=== PATIENT | female | born 1930 | race Caucasian/White ===

== ENCOUNTER 2017-06-12 18:08 | Inpatient (IN) | payer MEDICARE ==
[~2017-06-12] VITALS: Ht 152.4 cm; Wt 67.0 kg
[~2017-06-12 18:08] MED LIST: ALLO100 PO; ASPI325T PO; CALC600T34 PO; CLOP75 PO; DYAZ37.52 PO; LORT7.5T3 PO; METO50TA PO; MEVA40TA6 PO; POTA-243 PO; PRIN5TAB PO; SPIR25 PO; VITA500T10 PO
[2017-06-12 18:15] VITALS: BP 132/62; PULSE 86; RESP 18; TEMP 98; O2SAT 93
[2017-06-12] MEDS ORDERED: GABA300C5 PO (18:21)
[2017-06-12] MEDS ORDERED: ACYC800T PO (18:21)
[2017-06-12] MEDS ORDERED: ASPI81CH CHEW (18:21)
[2017-06-12 18:26] VITALS: O2SAT 94
[2017-06-12] MEDS ORDERED: SODIUM CHLORIDE 0.9% FLUSH 10 ML FLUSH IVF PRN ×2 (19:15→20:45)
[2017-06-12] MEDS ORDERED: RESP: ALBUTEROL 2.5 MG/IPRATROPIUM 0.5 MG NEB (SCH) NEB ONE (19:15)
[2017-06-12] MEDS ORDERED: ONDANSETRON HCL 4 MG/2 ML VIAL IV PUSH ONE (19:15)
[2017-06-12 19:25] VITALS: O2SAT 97
[2017-06-12 19:45] LABS: AUTOMATED NEUTROPHIL # 5.1 TH/MM3 (1.8-7.7); BASOPHIL % 0.3 % (0.0-2.0); EOSINOPHIL # 0.2 TH/MM3 (0-0.4); EOSINOPHIL % 3.2 % (0.0-4.0); HEMATOCRIT 29.1 % (35.0-46.0); LYMPH % 11.2 % (9.0-44.0); LYMPHOCYTE # 0.8 TH/MM3 (1.0-4.8); MEAN CELL VOLUME 88.9 FL (80.0-100.0); MEAN CORPUSCULAR HEMOGLOBIN 29.2 PG (27.0-34.0); MEAN CORPUSCULAR HGB CONC 32.8 % (32.0-36.0); MONO % 17.2 % (0.0-8.0); NEUT % 68.1 % (16.0-70.0); PLATELET COUNT 139 TH/MM3 (150-450); RED BLOOD COUNT 3.27 MIL/MM3 (4.00-5.30); WHITE BLOOD COUNT 7.4 TH/MM3 (4.0-11.0)
[2017-06-12 19:53] LABS: HEMO FLAGS DIFF FINAL
[2017-06-12 19:57] LABS: CHLORIDE 103 MEQ/L (98-107); POTASSIUM 4.8 MEQ/L (3.5-5.1); SODIUM (NA) 137 MEQ/L (136-145)
--- NOTE | 2017-06-12 20:00 | PD ---
HPI Chief Complaint: Altered Mental Status Time Seen by Provider: 19:12 Travel History International Travel<30 days: No Contact w/Intl Traveler<30days: No Traveled to known affect area: No History of Present Illness HPI 87-year-old female presents to the emergency department by private transportation in the care of her family for evaluation of syncopal episode. According to the family patient has history of hypertension and dyslipidemia. As of 5 days ago she was diagnosed with shingles affecting the right trunk and chest wall. Patient was seen by her primary care provider and started on gabapentin and acyclovir. Family has noted since starting the new medications she has been a little confused and off balance. Patient reportedly had a fall the bathroom yesterday. Patient fall was not witnessed but was heard by family and they immediately responded and found her on the floor awake. Patient was assisted from the floor and seemed to be okay at the time and then later today had another episode of fall but she was caught by her daughter before she landed on the floor or sustaining any injury. Yesterday patient did contuse her left shoulder and it is suspected that she hit her head. Today around 4:30 with family sat her on the back porch to enjoy some fresh air and the daughter checked on her around 5 PM and found to be unresponsive sitting upright in her chair. Daughter states that she had some guttural respirations and then vomited. The daughter tried to keep her from aspirating. There was no trauma or fall associated with the syncopal episode which was seconds in duration. Daughter does not believe she saw any seizure activity. No witnessed incontinence. No prior history of seizure. EMS was contacted and upon their arrival patient refused transportation by EMS. Patient is brought in by private vehicle. Patient's had no recent febrile illness. No shaking chills. No previous cough congestion shortness of breath chest pain abdominal pain nausea vomiting diarrhea dysuria or new joint pain or swelling. Since the episode of vomiting patient has had increasing congested cough. No reported witnessed coffee-ground emesis or hematemesis. Patient rates her pain 0/10 intensity. PFSH Past Medical History Narrative Medical Arthritis hypertension dyslipidemia stage IV kidney disease renal artery stent pulmonary edema partial colectomy colonic polyp polypectomy shingles no tobacco use; nursing notes reviewed Arthritis: Yes Autoimmune Disease: No Blood Disorders: No Heart Rhythm Problems: No Cancer: No Cardiovascular Problems: Yes High Cholesterol: Yes Chest Pain: No Congestive Heart Failure: No Cerebrovascular Accident: No Endocrine: No Gastrointestinal Disorders: Yes (POLYP) Gout: Yes Genitourinary: No Headaches: Yes Hypertension: Yes Immune Disorder: No Medical other: Yes (STAGE 4 KIDNEY DISEASE) Musculoskeletal: Yes Neurologic: No Psychiatric: No Reproductive: No Respiratory: No Myocardial Infarction: No Seizures: No Tetanus Vaccination: Unknown Influenza Vaccination: Yes ?: Not Menopausal: Yes Past Surgical History Abdominal Surgery: Yes (APPY, COLON RESECTION) AICD: No Appendectomy: Yes Gynecologic Surgery: Yes (TAHBSO) Hysterectomy: Yes Joint Replacement: Yes (UMANG. KNEES) Oral Surgery: Yes (T & A) Pacemaker: No Tonsillectomy: Yes Other Surgery: Yes (STENTS) Social History Alcohol Use: No Tobacco Use: No Substance Use: No Allergies-Medications (Allergen,Severity, Reaction): Coded Allergies: penicillin G (Unverified Allergy, Mild, Rash, 06/12/17) Reported Meds & Prescriptions Reported Meds & Active Scripts Active Reported Metoprolol Tartrate 25 Mg Tab 25 Mg PO BID Losartan (Losartan Potassium) 100 Mg Tab 100 Mg PO DAILY Amlodipine (Amlodipine Besylate) 2.5 Mg Tab 2.5 Mg PO DAILY Hydralazine (Hydralazine HCl) 100 Mg Tab 100 Mg PO BID Take with meals Aspirin 81 Mg Chew 81 Mg CHEW DAILY Gabapentin 300 Mg Cap 300 Mg PO HS Acyclovir 800 Mg Tab 800 Mg PO BID Simvastatin 5 Mg Tab 5 Mg PO DAILY Narrative Medication Hydralazine 50 mg 3 times a day amlodipine 2.5 mg daily restart and 100 mg daily metoprolol 25 mg twice a day aspirin 81 mg daily simvastatin daily acyclovir 40 mg twice a day gabapentin 300 mg at bedtime Review of Systems Except as stated in HPI: all other systems reviewed are Neg General / Constitutional: No: Fever, Chills Eyes: No: Visual changes HENT: Positive: Lightheadedness, Congestion, No: Headaches, Vertigo Cardiovascular: Positive: Syncope, No: Chest Pain or Discomfort, Diaphoresis Respiratory: Positive: Cough, Shortness of Breath (mild), Wheezing Gastrointestinal: Positive: Nausea, Vomiting, No: Diarrhea, Abdominal Pain Genitourinary: No: Dysuria, Decreased Urinary Output Musculoskeletal: No: Pain Skin: Positive Rash (shingles) Neurologic: Positive: Weakness, Syncope, Change in Mentation (mild confusion per family), No: Dizziness, Focal Abnormalities, Coordination Problem, Headache Psychiatric: No: Anxiety Endocrine: Positive: Cold Intolerance Hematologic/Lymphatic: No: Easy Bruising Physical Exam Narrative GENERAL: Well-developed elderly female with congested cough room air O2 saturation 92-93% placed on supplemental oxygen SKIN: Warm and dry. Shingles rash to right chest wall and upper abdomen; ecchymosis to left shoulder HEAD: Atraumatic. Normocephalic. No scalp soft tissue swelling hematoma abrasion laceration or ecchymosis noted no tenderness no bony abnormality. EYES: Pupils equal and round. Extraocular muscles intact. No scleral icterus. No injection or drainage. ENT: No nasal bleeding or discharge. Mucous membranes pink and moist. Small contusion to left lateral aspect of tongue. NECK: Trachea midline. No JVD. No tenderness to direct palpation along the cervical spine no bony step-off neck nontender. CARDIOVASCULAR: Regular rate and rhythm. Chest wall: No tenderness to palpation no rib tenderness. RESPIRATORY: No accessory muscle use. Clear to auscultation. Breath sounds equal bilaterally. GASTROINTESTINAL: Abdomen soft, non-tender, nondistended. Hepatic and splenic margins not palpable. MUSCULOSKELETAL: Extremities without clubbing, cyanosis, or edema. No obvious deformities. NEUROLOGICAL: Awake and alert. GCS 15. No obvious cranial nerve deficits. Motor grossly within normal limits. Five out of 5 muscle strength in the arms and legs. Normal speech. PSYCHIATRIC: Appropriate mood and affect; insight and judgment normal. Data Data Last Documented VS Vital Signs Date Time Temp Pulse Resp B/P (MAP) Pulse Ox O2 Delivery O2 Flow Rate FiO2 06/12/17 18:26 94 Nasal Cannula 2.00 06/12/17 18:15 98.0 86 18 132/62 (85) Orders Orders Electrocardiogram (06/12/17 19:13) Complete Blood Count With Diff (06/12/17 19:13) Comprehensive Metabolic Panel (06/12/17 19:13) Magnesium (Mg) (06/12/17 19:13) B-Type Natriuretic Peptide (06/12/17 19:13) Ckmb (Isoenzyme) Profile (06/12/17 19:13) Troponin I (06/12/17 19:13) Act Partial Throm Time (Ptt) (06/12/17 19:13) Prothrombin Time / Inr (Pt) (06/12/17 19:13) Urinalysis - C+S If Indicated (06/12/17 19:13) Chest, Single Ap (06/12/17 19:13) Ct Brain W/O Iv Contrast(Rout) (06/12/17 19:13) Ecg Monitoring (06/12/17 19:13) Iv Access Insert/Monitor (06/12/17 19:13) Oximetry (06/12/17 19:13) Sodium Chloride 0.9% Flush (Ns Flush) (06/12/17 19:15) Blood Culture (06/12/17 19:13) Lactic Acid (06/12/17 19:13) Ondansetron Inj (Zofran Inj) (06/12/17 19:15) Albuterol-Ipratropium Neb (Duoneb Neb) (06/12/17 19:15) CKMB (06/12/17 19:30) CKMB% (06/12/17 19:30) Levofloxacin 250 Mg Premix Inj (Levaquin (06/12/17 20:45) Aztreonam Inj (Azactam Inj) (06/12/17 20:45) Metronidazole 500 Mg Inj (Flagyl 500 Mg (06/12/17 20:45) Admit Order (Ed Use Only) (06/12/17 ) ^ Saline Lock (06/12/17 20:45) Resp Oxygen Mayank C Titrat 1-4 L (06/12/17 ) Notify Dr: Other (06/12/17 20:45) Sodium Chloride 0.9% Flush (Ns Flush) (06/12/17 21:00) Sodium Chloride 0.9% Flush (Ns Flush) (06/12/17 20:45) Labs Laboratory Tests Test 06/12/17 19:30 White Blood Count 7.4 TH/MM3 Red Blood Count 3.27 MIL/MM3 Hemoglobin 9.5 GM/DL Hematocrit 29.1 % Mean Corpuscular Volume 88.9 FL Mean Corpuscular Hemoglobin 29.2 PG Mean Corpuscular Hemoglobin Concent 32.8 % Red Cell Distribution Width 13.0 % Platelet Count 139 TH/MM3 Mean Platelet Volume 9.1 FL Neutrophils (%) (Auto) 68.1 % Lymphocytes (%) (Auto) 11.2 % Monocytes (%) (Auto) 17.2 % Eosinophils (%) (Auto) 3.2 % Basophils (%) (Auto) 0.3 % Neutrophils # (Auto) 5.1 TH/MM3 Lymphocytes # (Auto) 0.8 TH/MM3 Monocytes # (Auto) 1.3 TH/MM3 Eosinophils # (Auto) 0.2 TH/MM3 Basophils # (Auto) 0.0 TH/MM3 CBC Comment DIFF FINAL Differential Comment Prothrombin Time 10.2 SEC Prothromb Time International Ratio 0.9 RATIO Activated Partial Thromboplast Time 26.3 SEC Blood Urea Nitrogen 64 MG/DL Creatinine 3.20 MG/DL Random Glucose 136 MG/DL Total Protein 6.3 GM/DL Albumin 3.3 GM/DL Calcium Level 9.4 MG/DL Magnesium Level 2.5 MG/DL Alkaline Phosphatase 82 U/L Aspartate Amino Transf (AST/SGOT) 30 U/L Alanine Aminotransferase (ALT/SGPT) 23 U/L Total Bilirubin 0.3 MG/DL Sodium Level 137 MEQ/L Potassium Level 4.8 MEQ/L Chloride Level 103 MEQ/L Carbon Dioxide Level 24.2 MEQ/L Anion Gap 10 MEQ/L Estimat Glomerular Filtration Rate 14 ML/MIN Lactic Acid Level 1.5 mmol/L Total Creatine Kinase 130 U/L Creatine Kinase MB 2.4 NG/ML Troponin I LESS THAN 0.02 NG/ML B-Type Natriuretic Peptide 324 PG/ML MDM Medical Decision Making Medical Screen Exam Complete: Yes Emergency Medical Condition: Yes Medical Record Reviewed: Yes Interpretation(s) EKG: Sinus rhythm rate [address] segment flattening is noted cxr: no lobar infiltrate noted no vascular congestion no pneumothorax CBC & BMP Diagram 06/12/17 19:30 Total Protein 6.3 L, Albumin 3.3 L, Calcium Level 9.4, Magnesium Level 2.5, Alkaline Phosphatase 82, Aspartate Amino Transf (AST/SGOT) 30, Alanine Aminotransferase (ALT/SGPT) 23, Total Bilirubin 0.3 Vital Signs Date Time Temp Pulse Resp B/P (MAP) Pulse Ox O2 Delivery O2 Flow Rate FiO2 06/12/17 18:26 94 Nasal Cannula 2.00 06/12/17 18:26 94 Nasal Cannula 2.00 06/12/17 18:15 98.0 86 18 132/62 (85) 93 BNP: 324; troponin I: <0.02, not elevated; ck: 130, not elevated mb% 1.8% not elevated Last Impressions Head CT 06/12/17 1913 Signed Impressions: Service Date/Time: Monday, June 12, 2017 19:45 - CONCLUSION: Negative noncontrast head CT. Ebenezer Bejarano MD Differential Diagnosis Syncope, near-syncope, seizure, arrhythmia, adverse medication reaction, sepsis , ACS, PE, aspiration Narrative Course Patient placed on cardiac care nurse with ongoing pulse oximetry supplemental oxygen 2 L nasal cannula as well as Zofran 4 mg iv for nausea and report of vomiting, DuoNeb updraft 1 for cough mild shortness of breath and report of aspiration sent for CT brain w/o and cxr; EKG ordered Cough decreased lung sounds and O2 sats improved after duoneb updraft x 1 cxr: no lobar infiltrate noted Patient with stage IV renal disease last comparison BUN and creatinine available 2009 currently. Creatinine 64/3.2 patient also with chronic anemia hemoglobin 9.5 lactic acid is found to be in normal range at 1.5 CK total 1:30 with MB percent 1.8% not elevated troponin I less than 0.02 not elevated BNP is elevated mildly at 324 most likely reflects patient's renal function no clinical or radiographic evidence of vascular congestion this time. Discussed with Dr Agudelo for admission --antibiotic coverage administered for aspiration with azactam, levaquin and flagyl Patient and family informed of plan for admission @ 8:52 PM T: 100.5 F, acetaminophen administered Physician Communication Physician Communication discussed with Dr Agudelo for admission Diagnosis Primary Impression: Syncope Qualified Codes: R55 - Syncope and collapse Additional Impressions: Cough Aspiration into airway Qualified Codes: T17.908A - Unspecified foreign body in respiratory tract, part unspecified causing other injury, initial encounter Adverse drug reaction Qualified Codes: T88.7XXA - Unspecified adverse effect of drug or medicament, initial encounter Shingles Admitting Information Admitting Physician Requests: Admit Elsy Baptiste MD Jun 12, 2017 20:00
[2017-06-12 20:01] LABS: ANION GAP 10 MEQ/L (5-15); BICARBONATE 24.2 MEQ/L (21.0-32.0); BLOOD UREA NITROGEN 64 MG/DL (7-18); MAGNESIUM 2.5 MG/DL (1.5-2.5)
[2017-06-12 20:03] LABS: APTT (PATIENT) 26.3 SEC (24.3-30.1); INTERNATIONAL NORMALIZED RATIO 0.9 RATIO; PROTHROMBIN TIME - PATIENT 10.2 SEC (9.8-11.6)
[2017-06-12 20:04] LABS: ALT (GPT) 23 U/L (10-53); AST (GOT) 30 U/L (15-37); GLOMERULAR FILTRATION RATE 14 ML/MIN (>89)
[2017-06-12 20:06] LABS: TOTAL BILIRUBIN ADULT 0.3 MG/DL (0.2-1.0)
[2017-06-12 20:07] LABS: ALKALINE PHOSPHATASE 82 U/L (45-117); CREATINE KINASE 130 U/L (26-192)
--- NOTE | 2017-06-12 20:07 | RADRPT ---
EXAM DATE/TIME: 06/12/2017 19:45 [facility] COMPARISON: No previous studies available for comparison. INDICATIONS : Dizziness. Syncope. Nausea. Vomiting. RADIATION DOSE: 56.99 CTDIvol (mGy) MEDICAL HISTORY : Hypertension. SURGICAL HISTORY : None. ENCOUNTER: Initial ACUITY: 1 day PAIN SCALE: 0/10 LOCATION: cranial TECHNIQUE: Multiple contiguous axial images were obtained of the head. Using automated exposure control and adj ustment of the mA and/or kV according to patient size, radiation dose was kept as low as reasonably a chievable to obtain optimal diagnostic quality images. DICOM format image data is available electro nically for review and comparison. FINDINGS: CEREBRUM: The ventricles are normal for age. No evidence of midline shift, mass lesion, hemorrhage or acute in farction. No extra-axial fluid collections are seen. POSTERIOR FOSSA: The cerebellum and brainstem are intact. The 4th ventricle is midline. The cerebellopontine angle i s unremarkable. EXTRACRANIAL: The visualized portion of the orbits is intact. SKULL: The calvaria is intact. No evidence of skull fracture. CONCLUSION: Negative noncontrast head CT. Ebenezer Bejarano MD on June 12, 2017 at 20:05 Board Certified Radiologist. This report was verified electronically.
[2017-06-12] MEDS ORDERED: SIMV5TAB3 PO (20:17)
[2017-06-12] MEDS ORDERED: AMLO2.5T PO (20:17)
[2017-06-12] MEDS ORDERED: HYDR-3801 PO (20:17)
[2017-06-12] MEDS ORDERED: METO25TA3 PO (20:17)
[2017-06-12] MEDS ORDERED: LOSA100T PO (20:17)
[2017-06-12 20:19] LABS: CKMB 2.4 NG/ML (0.5-3.6)
--- NOTE | 2017-06-12 20:22 | RADRPT ---
EXAM DATE/TIME: 06/12/2017 20:00 [facility] COMPARISON: No previous studies available for comparison. INDICATIONS : Chest palpitations. MEDICAL HISTORY : Hypertension. Cardiovascular disease. SURGICAL HISTORY : Coronary artery stent. Appendectomy. Hysterectomy. Colon resection. Stage 4 kidney disease. ENCOUNTER: Initial ACUITY: 1 day PAIN SCORE: 2/10 LOCATION: Bilateral chest FINDINGS: A single view of the chest demonstrates the lungs to be symmetrically aerated without evidence of mas s, infiltrate or effusion. The cardiomediastinal contours are unremarkable. Osseous structures are intact. CONCLUSION: No evidence of acute cardiopulmonary disease. Ebenezer Bejarano MD on June 12, 2017 at 20:20 Board Certified Radiologist. This report was verified electronically.
[2017-06-12] MEDS ORDERED: AZTREONAM INJ 2,000 MG in SODIUM CHLORIDE 0.9% INJ 100 ML IV ONE (20:45)
[2017-06-12] MEDS ORDERED: metroNIDAZOLE 500 MG INJ 100 ML IV ONE (20:45)
[2017-06-12] MEDS ORDERED: LEVOFLOXACIN 250 MG PREMIX INJ 50 ML IV ONE (20:45)
[2017-06-12 20:50] VITALS: BP 133/61; PULSE 102; RESP 18; TEMP 100.1; O2SAT 94
[2017-06-12] MEDS ORDERED: SIMV40TA PO (20:55)
[2017-06-12] MEDS ORDERED: HYDR-3800 PO (20:55)
[2017-06-12] MEDS: SODIUM CHLORIDE 0.9% FLUSH 10 ML FLUSH IV FLUSH SCH (21:00)
[2017-06-12] MEDS ORDERED: ACETAMINOPHEN 500 MG CPLT PO PRN (21:00)
[2017-06-12] MEDS ORDERED: ACETAMINOPHEN 325 MG TAB PO ONE (21:00)
[2017-06-12] MEDS ORDERED: AZTREONAM INJ 1,000 MG in SODIUM CHLORIDE 0.9% INJ 100 ML IV SCH (21:00)
[2017-06-12 21:11] LABS: GLUCOSE,URINE 100 mg/dL (NEG); KETONE, URINE NEG (NEG); NITRITE,URINE NEG (NEG)
[2017-06-12 21:12] LABS: BLOOD, URINE TRACE (NEG)
[2017-06-12 21:22] LABS: URINE COLOR STRAW (YELLW/STRAW)
[2017-06-12 21:23] LABS: COMMENT (UR) CULT NOT INDICATED; CULTURE IF INDICATED CULT NOT INDICATED; RBC, URINE 0-3 /hpf (0-3); SQUAMOUS EPITHELIAL CELL URINE 0-5 /hpf (0-5)
--- NOTE | 2017-06-12 22:04 | MH ---
cc: JB FIGUEROA M.D. DATE OF ADMISSION 06/12/2017 ADMISSION DIAGNOSIS 1. Syncopal episode of questionable etiology. 2. Possible aspiration during period of syncope and unconsciousness with possible developing aspiration pneumonia with low grade fever. 3. Herpes zoster right chest wall. 4. Stage IV chronic kidney disease. 5. Hypertension. 6. Hyperlipidemia. 7. Tremor right upper extremity. PERTINENT HISTORY This is an 87-year-old white female [facility]. She had a syncopal episode at home. She was sitting in a chair and all of a sudden was noted to be unconscious and unresponsive. Her daughter who is a [employer]IST tried to arouse her and she was not responsive. She then subsequently vomited while she was unconscious and then after she came around she was coughing. She started feeling ill a few days ago when she developed shingles on the right side of her chest. He was seen by her primary care physician, ___ on 06/08/2017 and put on acyclovir 800 milligrams twice a day and gabapentin 300 milligrams at night. Since going on the gabapentin she has been a little confused and a little off balance. She had a fall in the bathroom yesterday but did not lose consciousness. She was on the floor awake when her family found her. She was assisted from the floor and seemed to be okay. Then she had another episode later that day of a fall but was caught by her daughter before she landed on the floor without sustaining any injury. She did, however, as her daughter caught her, was able to ease her to the floor with but she may have hit her head and her shoulder. She had the episode around 4:30 to 5:00 p.m. today as mentioned. She has been having a slight cough since then but did not develop any fever until while she is in the ED and had a temperature of 100.5. Her original chest x-ray in the ED was negative and a CT brain scan was negative. Interestingly, she had a syncopal episode similar to this about over a year ago when she was riding in her car with a family member and she just kind of went unconscious and slumped to the side. She had no warning of that. She was admitted to [facility] in [facility] at that time but was not put any and any medication for that episode and has never been put on any seizure medication and does not sound like she had an EEG done at that time either. They could not prove whether she had any arrhythmia or not. She had no warning to either episode over a year or tonight. She is being admitted for treatment with antibiotics for possible aspiration pneumonia and neurology evaluation for her syncopal episode. MEDICAL HISTORY She has hypertension. She sees Dr. Uri Shukla, a hay stacker, for stage IV chronic kidney disease and her GFR typically runs in around 14-17 according to her daughter. She has had history of a stent of the left renal artery for stenosis in 2009. She is under treatment for hyperlipidemia. She did have a right hemicolectomy for what turned out to be a benign mass in 2009 and then had some pulmonary edema postop due to volume overload but she has never had any history of documented cardiac disease. No heart attack, coronary artery disease or angina. She has had no peptic ulcer disease, lung disease or stroke. She has had varicella and has had the colon polyp in the past. She has osteoarthritis, osteoporosis, history of gout. History of secondary hyperparathyroidism of renal origin. Anemia likely of chronic kidney disease. PAST SURGICAL HISTORY She had a total abdominal hysterectomy, bilateral salpingo-oophorectomy and appendectomy at the same time. She had a right carpal tunnel releases, has had bilateral total knee arthroplasty. She had a right hemicolectomy around 2009. ALLERGIES CIPRO CAUSE JUST SOME DYSPEPSIA. LISINOPRIL CAUSES A COUGH. SHE HAD A RASH WITH PENICILLIN. SHE HAD NAUSEA WITH BACTRIM AND HAD A PROBLEM WITH TRAMADOL IN THE PAST. MEDICATIONS 1. She has been on gabapentin 300 milligrams at bedtime, this is since June 08. 2. Acyclovir 800 milligrams twice a day since 06/08. 3. She is on aspirin 81 milligrams a day. 4. Losartan 100 milligrams a day. 5. Simvastatin 40 milligrams a day. 6. Amlodipine 2.5 milligrams a day. 7. Metoprolol 25 milligrams b.i.d. 8. Hydralazine 50 milligrams three times a day. FAMILY HISTORY Mother at 83 of heart disease. She also had rheumatoid arthritis and kidney disease. Father at 48 of a cerebral hemorrhage. A brother had a pacemaker and sister had aortic valve replacement. SOCIAL HISTORY She has never smoked. Does not use alcohol. Is , retired. REVIEW OF SYSTEMS GENERAL: She had fever in the ED. She has had just slight headache. HEENT: No runny nose or sore throat. CARDIOVASCULAR: No chest pain or palpitations. No orthopnea, PND. PULMONARY: Has had the cough since she vomited while she was unconscious. GI: Had the one episode of vomiting. No abdominal pain. No constipation or rectal bleeding. : No dysuria, hematuria. She just has had a little incontinence at times. SKIN: Has had the herpes zoster rash on her right chest at the level of the breast. She has no edema. NEURO: Had the syncopal episode as mentioned. She does have a chronic resting tremor of the right upper extremity. No numbness or weakness. PHYSICAL EXAMINATION GENERAL: Pleasant elderly white female in no distress. VITAL SIGNS: Temperature was 98. She did have a temperature up to 100.5. Her O2 sat is around 93, 94 and is on 2 liters. Pulse 86, respirations 18. HEENT: TMs clear. Nose negative. Mouth without inflammation or lesions. NECK: Without JVD. No bruit. HEART: Regular rate and rhythm. No murmur. LUNGS: Just maybe some minimal rhonchi, otherwise, negative. ABDOMEN: Soft, nontender, no masses. SKIN: Reveals a papular rash with minimal vesicles in a dermatomal pattern of the right chest along the line of the breast, right breast. EXTREMITIES: No edema. Pulses palpated in both feet, 2+ left foot, 1+ in the right, dorsalis pedis pulse. NEURO: Alert, oriented. She has a resting tremor. Motor strength symmetrical. Cranial nerves intact. Sensation intact. IMAGING STUDIES CT brain scan was negative. Chest x-ray was negative. LABORATORY Her sodium 137, potassium 4.8, chloride 103, CO2 24.2, BUN 64, creatinine 3.2, GFR 14 but she has stage IV CKD. Troponin was less than 0.02. CK was normal. Total protein 6.3, albumin 3.3. BNP was 324 but likely reflective of her chronic kidney disease. Lactic acid 1.5, random glucose 136, white count was 7.4. Her hemoglobin was 9.5, platelet count 139,000, likely reflective of anemia of chronic kidney disease with her hemoglobin being 9.5. INR was normal. ASSESSMENT 1. As noted, also add anemia likely of chronic kidney disease. 2. Mild thrombocytopenia. 3. History of secondary hyperparathyroidism of renal origin. MEDICAL HISTORY We will admit her. Obtain a neuro consult. I will order an EEG, 24-hour Holter monitor. We will put her on the coverage for aspiration pneumonia with Flagyl 500 milligrams q.8 hours, Azactam 1 gram q. 8 hours. We will dose her with Levaquin 250 milligrams every 48 hours due to her renal disease. We stopped the gabapentin in case that has been causing some of her mental confusion, not sure this would have caused her syncopal episode especially in view of her having a similar episode over a year ago when she was not on any new medication. Will put her on SCDs and AL hose for DVT prophylaxis. Will give her some duo nebulizer treatments. She will be on oxygen as needed. MD JAYLIN Hernandez/SUNDAY /9:08 PM /9:35 PM
[2017-06-12] MEDS: RESP: ALBUTEROL 2.5 MG/IPRATROPIUM 0.5 MG NEB (SCH) NEB (22:23)
[2017-06-12] MEDS: SODIUM CHLOR 0.45% 1000 ML INJ 1,000 ML IV SCH (22:39)
[2017-06-12] MEDS: METOPROLOL TARTRATE 25 MG TAB PO SCH (22:40)
[2017-06-12] MEDS: ACYCLOVIR 800 MG TAB PO SCH (22:40)
[2017-06-12] MEDS: hydrALAZINE HCL 50 MG TAB PO SCH (22:40)
[2017-06-12] MEDS: metroNIDAZOLE 500 MG INJ 100 ML IV SCH (22:41)
[2017-06-12 23:20] VITALS: BP 135/55; PULSE 122; RESP 16; TEMP 100.1; O2SAT 97
[2017-06-13] VITALS: BP 108/55; PULSE 110; RESP 18; TEMP 100.3; O2SAT 97
[2017-06-13] MEDS: LEVOFLOXACIN 250 MG PREMIX INJ 50 ML IV SCH (00:13)
[2017-06-13] MEDS: AZTREONAM INJ 500 MG in SODIUM CHLORIDE 0.9% INJ 100 ML IV SCH ×3 (00:52→15:16)
[2017-06-13] MEDS: RESP: ALBUTEROL 2.5 MG/IPRATROPIUM 0.5 MG NEB (SCH) NEB ×4 (03:25→22:13)
[2017-06-13] MEDS: metroNIDAZOLE 500 MG INJ 100 ML IV SCH ×3 (05:55→22:41)
[2017-06-13] MEDS: hydrALAZINE HCL 50 MG TAB PO SCH ×3 (05:55→22:41)
[2017-06-13 06:59] LABS: BICARBONATE 18.8 MEQ/L (21.0-32.0)
[2017-06-13 07:03] LABS: AUTOMATED NEUTROPHIL # 16.6 TH/MM3 (1.8-7.7); EOSINOPHIL # 0.1 TH/MM3 (0-0.4); EOSINOPHIL % 0.6 % (0.0-4.0); HEMATOCRIT 24.7 % (35.0-46.0); LYMPH % 3.5 % (9.0-44.0); LYMPHOCYTE # 0.7 TH/MM3 (1.0-4.8); MEAN CELL VOLUME 90.3 FL (80.0-100.0); MEAN CORPUSCULAR HEMOGLOBIN 30.5 PG (27.0-34.0); MEAN CORPUSCULAR HGB CONC 33.8 % (32.0-36.0); MONO % 9.1 % (0.0-8.0); NEUT % 86.8 % (16.0-70.0); PLATELET COUNT 117 TH/MM3 (150-450); RED BLOOD COUNT 2.73 MIL/MM3 (4.00-5.30); RED CELL DISTRIBUTION WIDTH 13.6 % (11.6-17.2); WHITE BLOOD COUNT 19.1 TH/MM3 (4.0-11.0)
[2017-06-13 07:19] LABS: HEMO FLAGS AUTO DIFF
[2017-06-13] MEDS: amLODIPine BESYLATE 5 MG TAB PO SCH (07:47)
[2017-06-13] MEDS: LOSARTAN 50 MG TAB PO SCH (07:48)
[2017-06-13] MEDS: ASPIRIN 81 MG CHEW TAB CHEW SCH (07:49)
[2017-06-13 07:55] LABS: BANDS 19 % (0-6); NEUTROPHIL # MANUAL DIFF 17.2 TH/MM3 (1.8-7.7); POLYS (SEG NEUTROPHILS) 71 % (16-70); WBC DIFF SAMPLE 100
[2017-06-13 07:56] LABS: PLATELET ESTIMATE SMEAR LOW (NORMAL); PLATELET MORPHOLOGY NORMAL (NORMAL); SCAN/DIFF FINAL DIFF MANUAL
[2017-06-13 08:00] VITALS: BP 89/47; PULSE 94; RESP 16; TEMP 97.5; O2SAT 98
[2017-06-13] MEDS: METOPROLOL TARTRATE 25 MG TAB PO SCH ×2 (08:01→22:40)
[2017-06-13] MEDS: ATORVASTATIN 40 MG TAB PO SCH (08:01)
--- NOTE | 2017-06-13 08:37 | HHI.PR ---
Subjective Remarks She denies any shortness of breath. She has a slight cough. Objective Vitals Vital Signs Date Time Temp Pulse Resp B/P (MAP) Pulse Ox O2 Delivery O2 Flow Rate FiO2 06/13/17 00:00 97 Nasal Cannula 2.00 06/13/17 00:00 100.3 110 18 108/55 (72) 97 06/12/17 23:20 100.1 122 16 135/55 (81) 97 Nasal Cannula 2.00 06/12/17 20:50 100.1 102 18 133/61 (85) 94 06/12/17 19:25 97 Nasal Cannula 2.00 06/12/17 18:26 94 Nasal Cannula 2.00 06/12/17 18:26 94 Nasal Cannula 2.00 06/12/17 18:15 98.0 86 18 132/62 (85) 93 Result Diagram: 06/13/17 0600 06/13/17 0600 Other Results Laboratory Tests Test 06/12/17 19:30 06/12/17 21:00 06/13/17 06:00 White Blood Count 7.4 TH/MM3 19.1 TH/MM3 Red Blood Count 3.27 MIL/MM3 2.73 MIL/MM3 Hemoglobin 9.5 GM/DL 8.4 GM/DL Hematocrit 29.1 % 24.7 % Mean Corpuscular Volume 88.9 FL 90.3 FL Mean Corpuscular Hemoglobin 29.2 PG 30.5 PG Mean Corpuscular Hemoglobin Concent 32.8 % 33.8 % Red Cell Distribution Width 13.0 % 13.6 % Platelet Count 139 TH/MM3 117 TH/MM3 Mean Platelet Volume 9.1 FL 8.6 FL Neutrophils (%) (Auto) 68.1 % 86.8 % Lymphocytes (%) (Auto) 11.2 % 3.5 % Monocytes (%) (Auto) 17.2 % 9.1 % Eosinophils (%) (Auto) 3.2 % 0.6 % Basophils (%) (Auto) 0.3 % 0.0 % Neutrophils # (Auto) 5.1 TH/MM3 16.6 TH/MM3 Lymphocytes # (Auto) 0.8 TH/MM3 0.7 TH/MM3 Monocytes # (Auto) 1.3 TH/MM3 1.7 TH/MM3 Eosinophils # (Auto) 0.2 TH/MM3 0.1 TH/MM3 Basophils # (Auto) 0.0 TH/MM3 0.0 TH/MM3 CBC Comment DIFF FINAL AUTO DIFF Differential Comment FINAL DIFF MANUAL Prothrombin Time 10.2 SEC Prothromb Time International Ratio 0.9 RATIO Activated Partial Thromboplast Time 26.3 SEC Blood Urea Nitrogen 64 MG/DL 65 MG/DL Creatinine 3.20 MG/DL 3.30 MG/DL Random Glucose 136 MG/DL 109 MG/DL Total Protein 6.3 GM/DL Albumin 3.3 GM/DL Calcium Level 9.4 MG/DL 8.9 MG/DL Magnesium Level 2.5 MG/DL Alkaline Phosphatase 82 U/L Aspartate Amino Transf (AST/SGOT) 30 U/L Alanine Aminotransferase (ALT/SGPT) 23 U/L Total Bilirubin 0.3 MG/DL Sodium Level 137 MEQ/L 139 MEQ/L Potassium Level 4.8 MEQ/L 5.0 MEQ/L Chloride Level 103 MEQ/L 108 MEQ/L Carbon Dioxide Level 24.2 MEQ/L 18.8 MEQ/L Anion Gap 10 MEQ/L 12 MEQ/L Estimat Glomerular Filtration Rate 14 ML/MIN 13 ML/MIN Lactic Acid Level 1.5 mmol/L Total Creatine Kinase 130 U/L Creatine Kinase MB 2.4 NG/ML Troponin I LESS THAN 0.02 NG/ML B-Type Natriuretic Peptide 324 PG/ML Urine Color STRAW Urine Turbidity CLEAR Urine pH 6.0 Urine Specific [place] 1.012 Urine Protein TRACE mg/dL Urine Glucose (UA) 100 mg/dL Urine Ketones NEG mg/dL Urine Occult Blood TRACE Urine Nitrite NEG Urine Bilirubin NEG Urine Leukocyte Esterase NEG Urine RBC 0-3 /hpf Urine Squamous Epithelial Cells 0-5 /hpf Microscopic Urinalysis Comment CULT NOT INDICATED Differential Total Cells Counted 100 Neutrophils % (Manual) 71 % Band Neutrophils % 19 % Lymphocytes % 5 % Monocytes % 5 % Neutrophils # (Manual) 17.2 TH/MM3 Platelet Estimate LOW Platelet Morphology Comment NORMAL Red Cell Morphology Comment NORMAL Imaging Last Impressions Head CT 06/12/171912 Signed Impressions: Service Date/Time: Monday, June 12, 2017 19:45 - CONCLUSION: Negative noncontrast head CT. Ebenezer Bejarano MD Chest X-Ray 06/12/171912 Signed Impressions: Service Date/Time: Monday, June 12, 2017 20:00 - CONCLUSION: No evidence of acute cardiopulmonary disease. Ebenezer Bejarano MD Objective Remarks Exam: Pleasant elderly female in no distress. HEENT: pupils equal, no scleral icterus, mouth negative. Heart: RRR with no murmurs Lungs: Faint crackles left base Abdomen: Soft, nontender Skin: rash in a dermatomal distribution from the back of her right chest to the front along the line of her right breast Extremity: no edema Neuro: Alert, oriented, no motor deficits. slight tremor right upper extremity and hand A/P Assessment and Plan Assessment: --Syncopal episode of questionable etiology --Episode of vomiting while unconscious and then developed cough afterwards and subsequent fever while in the ER--empirically being treated for potential aspiration pneumonia (she is allergic to PCN)-- elevated WBC likely reflective of that --Herpes zoster right chest --Stage 4 CKD --Hypertension --Hyperlipidemia --Secondary hyperparathyroidism of renal origin --Anemia likely of chronic kidney disease --Tremor right upper extremity --Mild thrombocytopenia Plan: --An EEG and Holter monitor were ordered along with a neuro consult for her syncope. CT brain scan in ED was negative. --Continue Levaquin, Flagyl, Azactam and consult ID for aspiration pneumonia. A chest x-ray was ordered for today also. --Continue Acyclovir for the herpes zoster. I did stop the Gabapentin since it likely was causing adverse side effects as an outpatient. --Continue to monitor her kidney function but she reported last night that her GFR does run in the teens and she sees Dr Shukla. --Continue duoneb treatments and oxygen as needed. --Continue AL's/SCD's Anjel Agudelo MD Jun 13, 2017 08:37
[2017-06-13] MEDS: ACYCLOVIR 800 MG TAB PO SCH ×2 (09:00→22:42)
[2017-06-13] MEDS: SODIUM CHLORIDE 0.9% FLUSH 10 ML FLUSH IV FLUSH SCH ×2 (09:00→21:00)
[2017-06-13 10:11] VITALS: O2SAT 97
--- NOTE | 2017-06-13 14:53 | RADRPT ---
EXAM DATE/TIME: 06/13/2017 12:50 [facility] COMPARISON: CHEST PA & LAT, November 10, 2009, 22:26. INDICATIONS : Syncope. MEDICAL HISTORY : Hypertension. Cardiovascular disease. SURGICAL HISTORY : Coronary artery stent. Appendectomy. Hysterectomy. Colon resection, stage 4 kidney disease ENCOUNTER: Subsequent ACUITY: 2 days PAIN SCORE: 0/10 LOCATION: Bilateral chest FINDINGS: Hiatal hernia is noted. Minimal bibasilar parenchymal change are evident worse on the right than the left. There is no pneumothorax. CONCLUSION: 1. Bibasilar parenchymal change worse on the right. This could be an early inflammatory process. 2. PA and lateral chest is suggested to follow. Charly Maldonado MD FACR on June 13, 2017 at 14:08 Board Certified Radiologist. This report was verified electronically.
--- NOTE | 2017-06-13 15:03 | EKG ---
Date Performed: 06/12/2017 Time Performed: 20:18:39 PTAGE: 87 years EKG: SINUS TACHYCARDIA ABNORMAL RHYTHM ECG PREVIOUS TRACING : 11/11/2009 05.21 Compared to the previous tracing rate faster DOCTOR: Kym Foster Interpretating Date/Time 06/13/2017 15:03:10
[2017-06-13 16:00] VITALS: BP 100/48; PULSE 116; TEMP 97.6; O2SAT 97
--- NOTE | 2017-06-13 18:18 | MG ---
cc: GABBY HARDING Lab No: Date: 06/13/2017 Age: Sex: F Race: ELECTROENCEPHALOGRAM NUMBER [id number] HISTORY An 87-year-old woman, syncope. Levaquin. DESCRIPTION An 8 Hz symmetric synchronous posterior rhythm is noted. No hemisphere asymmetries are seen. Overall recording looks synchronous and symmetric. Hyperventilation is not performed. No epileptiform or seizure activity is noted. Photic stimulation was performed at the end of the recording without significant posterior driving. IMPRESSION Normal awake EEG. No evidence for focal or diffuse abnormality. Levaquin can at times decrease the seizure threshold and a different antibiotic could be considered. MD LIYA Burns/MANGO /5:14 PM /5:54 PM
--- NOTE | 2017-06-13 19:44 | MB ---
cc: MUSA BUNCH M.D. DATE OF CONSULTATION: 06/13/2017 DATE OF : [birth year], 87 years old. REASON FOR CONSULTATION: Syncope and tremor. HISTORY OF PRESENT ILLNESS: The patient is an 87 year-old woman in her usual state of health who recently had shingles, has been on some gabapentin at bed time, 300 milligrams, and acyclovir. She was staying with her daughter and decided to go out on the porch and sit in the chair. Her daughter went back to check on her and thought she just dosed off but tried to wake her for dinner to ask her what she would like to eat and she was unable to arouse her. Subsequently she did call 911 and the patient started vomiting. She thinks she may have aspirated. When she came too she did not have any post ictal confusion. She has been somewhat confused on the gabapentin. Per chart, it seems that she had a fall in the bathroom the other day without loss of consciousness. She has never had syncope prior to this event. There was no tongue biting, foaming at the mouth, no incontinence of urine or stool noted. PAST MEDICAL HISTORY: 1. Hypertension. 2. Renal disease. 3. Stent, left renal artery for stenosis. 4. Hyperlipidemia. 5. Right hemicolectomy for benign mass. 6. Some postop pulmonary edema. 7. Anemia of chronic disease. 8. History of gout. 9. Hyperparathyroidism of renal origin. 10. Osteoarthritis. 11. New diagnosis of shingles. ALLERGIES: CIPRO PENICILLIN TRAMADOL MEDICATIONS: 1. Gabapentin 300 milligrams at night. 2. Acyclovir 3. Baby aspirin 4. Losartan 5. Simvastatin 6. Amlodipine 7. Metoprolol 8. Hydralazine FAMILY HISTORY: Heart disease in the mother. Rheumatoid arthritis and kidney disease also. Father at 48 of cerebral hemorrhage. Brother has a pacemaker. Sister has aortic valve replacement. SOCIAL HISTORY: She does not smoke, does not drink. Retired. PHYSICAL EXAMINATION: Vitals: Temperature 97.5, pulse 94, respiratory rate 16, blood pressure currently is 87/47, sating at 97% on two liters. Initial blood pressure on admission was 132/63. NECK: Supple, however, there are bilateral bruits auscultated. HEART: Regular. NEUROLOGIC: Awake, alert, fluent. Pupils are reactive. Visual rodriguez full. Face symmetrical. Tongue midline. Motor watson, I don't see any weakness. No drift or leg lag. Cerebellar testing is normal. There is no cogwheeling, rigidity. She does exhibit a tremor on intention bilaterally, right a little bit more than the left and [id number]. No tremor in the legs. Toes are both downgoing. DTRs are 2+. Skin: She does have a large rash due to her shingles which is now in the crusted stage. LABORATORY DATA White count 19.1, hemoglobin 8.4, platelets are 117,000. Coag panel is unremarkable. Chemistries are reviewed. Her creatinine is 3.3, GFR 13. IMAGING STUDIES CT head did not yield any acute findings. IMPRESSION Syncope in an 87 year-old woman. The etiology at this point is unknown. She should have an EEG. I will get a carotid ultrasound since she does have bruits, also maintain her on telemetry. She will need a Holter monitor. If the Holter does not show anything, I would recommend a loop recorder. I don't think this was a seizure. Regarding her tremor, it looks like an essential tremor. I did discuss medications, however, some of the medicines such as gabapentin, primidone, would cause more sedation and side effects. She is already on a beta-aparna, I believe. Other options would be something such as toperimate, however, all the medicines would have to be adjusted to her kidney function. However, further recommendations will be made accordingly depending on findings. Will go ahead and get the EEG results, carotid ultrasound is ordered. Further recommendations accordingly. MD EDNA Vasquez/OZ /5:23 PM /7:31 PM
[2017-06-13 20:00] VITALS: BP 89/52; PULSE 105; RESP 18; TEMP 98.8; O2SAT 95
[2017-06-13 22:13] VITALS: O2SAT 95
[2017-06-13] MEDS: SODIUM CHLOR 0.45% 1000 ML INJ 1,000 ML IV SCH (22:40)
[2017-06-14] VITALS (11 sets, daily range): BP systolic 84–116; BP diastolic 46–65; PULSE 93–105; RESP 18–23; TEMP 97.4–100.5; O2SAT 87–97
[2017-06-14] MEDS: AZTREONAM INJ 500 MG in SODIUM CHLORIDE 0.9% INJ 100 ML IV SCH ×3 (00:41→16:24)
[2017-06-14] MEDS: ONDANSETRON HCL 4 MG/2 ML VIAL IV PRN ×2 (03:17→10:12)
[2017-06-14] MEDS: RESP: ALBUTEROL 2.5 MG/IPRATROPIUM 0.5 MG NEB (SCH) NEB ×4 (04:37→21:33)
[2017-06-14] MEDS: hydrALAZINE HCL 50 MG TAB PO SCH ×3 (05:55→21:26)
[2017-06-14] MEDS: metroNIDAZOLE 500 MG INJ 100 ML IV SCH (05:59)
[2017-06-14 08:43] LABS: POTASSIUM 4.6 MEQ/L (3.5-5.1)
[2017-06-14] MEDS: amLODIPine BESYLATE 5 MG TAB PO SCH (09:00)
[2017-06-14] MEDS: LOSARTAN 50 MG TAB PO SCH (09:00)
[2017-06-14 09:03] LABS: AUTOMATED NEUTROPHIL # 13.3 TH/MM3 (1.8-7.7); HEMATOCRIT 23.4 % (35.0-46.0); LYMPHOCYTE # 0.6 TH/MM3 (1.0-4.8); MEAN CELL VOLUME 89.1 FL (80.0-100.0); MEAN CORPUSCULAR HEMOGLOBIN 29.3 PG (27.0-34.0); MEAN CORPUSCULAR HGB CONC 32.9 % (32.0-36.0); MONO % 8.2 % (0.0-8.0); NEUT % 87.8 % (16.0-70.0); PLATELET COUNT 116 TH/MM3 (150-450); RED BLOOD COUNT 2.62 MIL/MM3 (4.00-5.30); RED CELL DISTRIBUTION WIDTH 13.5 % (11.6-17.2); WHITE BLOOD COUNT 15.1 TH/MM3 (4.0-11.0)
[2017-06-14 09:07] LABS: HEMO FLAGS AUTO DIFF
[2017-06-14 09:27] LABS: BANDS 11 % (0-6); NEUTROPHIL # MANUAL DIFF 13.3 TH/MM3 (1.8-7.7); POLYS (SEG NEUTROPHILS) 77 % (16-70); WBC DIFF SAMPLE 100
[2017-06-14 09:28] LABS: PLATELET ESTIMATE SMEAR LOW (NORMAL); PLATELET MORPHOLOGY NORMAL (NORMAL); ROULEAUX PRESENT (NORMAL); SCAN/DIFF FINAL DIFF MANUAL
[2017-06-14] MEDS: ASPIRIN 81 MG CHEW TAB CHEW SCH (09:54)
[2017-06-14] MEDS: METOPROLOL TARTRATE 25 MG TAB PO SCH ×2 (09:54→21:26)
[2017-06-14] MEDS: SODIUM CHLORIDE 0.9% FLUSH 10 ML FLUSH IV FLUSH SCH (09:54)
[2017-06-14] MEDS: ACYCLOVIR 800 MG TAB PO SCH ×2 (09:55→21:26)
[2017-06-14] MEDS: ATORVASTATIN 40 MG TAB PO SCH (09:55)
--- NOTE | 2017-06-14 10:20 | HHI.PR ---
Subjective Remarks Some nausea and vomiting earlier this morning and improved with Ondansetron. No shortness of breath Objective Vitals Vital Signs Date Time Temp Pulse Resp B/P (MAP) Pulse Ox O2 Delivery O2 Flow Rate FiO2 06/14/17 04:00 100.5 100 20 116/65 (82) 93 06/14/17 00:00 98.8 105 18 100/48 (65) 93 06/13/17 22:13 95 21 06/13/17 20:00 98.8 105 18 89/52 (64) 95 06/13/17 20:00 Room Air 06/13/17 16:00 97.6 116 100/48 (65) 97 Result Diagram: 06/14/17 0825 06/14/17 0825 Other Results Laboratory Tests Test 06/12/17 19:30 06/12/17 21:00 06/13/17 06:00 06/14/17 08:25 White Blood Count 7.4 TH/MM3 19.1 TH/MM3 15.1 TH/MM3 Red Blood Count 3.27 MIL/MM3 2.73 MIL/MM3 2.62 MIL/MM3 Hemoglobin 9.5 GM/DL 8.4 GM/DL 7.7 GM/DL Hematocrit 29.1 % 24.7 % 23.4 % Mean Corpuscular Volume 88.9 FL 90.3 FL 89.1 FL Mean Corpuscular Hemoglobin 29.2 PG 30.5 PG 29.3 PG Mean Corpuscular Hemoglobin Concent 32.8 % 33.8 % 32.9 % Red Cell Distribution Width 13.0 % 13.6 % 13.5 % Platelet Count 139 TH/MM3 117 TH/MM3 116 TH/MM3 Mean Platelet Volume 9.1 FL 8.6 FL 9.0 FL Neutrophils (%) (Auto) 68.1 % 86.8 % 87.8 % Lymphocytes (%) (Auto) 11.2 % 3.5 % 4.0 % Monocytes (%) (Auto) 17.2 % 9.1 % 8.2 % Eosinophils (%) (Auto) 3.2 % 0.6 % 0.0 % Basophils (%) (Auto) 0.3 % 0.0 % 0.0 % Neutrophils # (Auto) 5.1 TH/MM3 16.6 TH/MM3 13.3 TH/MM3 Lymphocytes # (Auto) 0.8 TH/MM3 0.7 TH/MM3 0.6 TH/MM3 Monocytes # (Auto) 1.3 TH/MM3 1.7 TH/MM3 1.2 TH/MM3 Eosinophils # (Auto) 0.2 TH/MM3 0.1 TH/MM3 0.0 TH/MM3 Basophils # (Auto) 0.0 TH/MM3 0.0 TH/MM3 0.0 TH/MM3 CBC Comment DIFF FINAL AUTO DIFF AUTO DIFF Differential Comment FINAL DIFF MANUAL FINAL DIFF MANUAL Prothrombin Time 10.2 SEC Prothromb Time International Ratio 0.9 RATIO Activated Partial Thromboplast Time 26.3 SEC Blood Urea Nitrogen 64 MG/DL 65 MG/DL 56 MG/DL Creatinine 3.20 MG/DL 3.30 MG/DL 3.00 MG/DL Random Glucose 136 MG/DL 109 MG/DL 112 MG/DL Total Protein 6.3 GM/DL Albumin 3.3 GM/DL Calcium Level 9.4 MG/DL 8.9 MG/DL 8.9 MG/DL Magnesium Level 2.5 MG/DL Alkaline Phosphatase 82 U/L Aspartate Amino Transf (AST/SGOT) 30 U/L Alanine Aminotransferase (ALT/SGPT) 23 U/L Total Bilirubin 0.3 MG/DL Sodium Level 137 MEQ/L 139 MEQ/L 138 MEQ/L Potassium Level 4.8 MEQ/L 5.0 MEQ/L 4.6 MEQ/L Chloride Level 103 MEQ/L 108 MEQ/L 108 MEQ/L Carbon Dioxide Level 24.2 MEQ/L 18.8 MEQ/L 19.0 MEQ/L Anion Gap 10 MEQ/L 12 MEQ/L 11 MEQ/L Estimat Glomerular Filtration Rate 14 ML/MIN 13 ML/MIN 15 ML/MIN Lactic Acid Level 1.5 mmol/L Total Creatine Kinase 130 U/L Creatine Kinase MB 2.4 NG/ML Troponin I LESS THAN 0.02 NG/ML B-Type Natriuretic Peptide 324 PG/ML Urine Color STRAW Urine Turbidity CLEAR Urine pH 6.0 Urine Specific [place] 1.012 Urine Protein TRACE mg/dL Urine Glucose (UA) 100 mg/dL Urine Ketones NEG mg/dL Urine Occult Blood TRACE Urine Nitrite NEG Urine Bilirubin NEG Urine Leukocyte Esterase NEG Urine RBC 0-3 /hpf Urine Squamous Epithelial Cells 0-5 /hpf Microscopic Urinalysis Comment CULT NOT INDICATED Differential Total Cells Counted 100 100 Neutrophils % (Manual) 71 % 77 % Band Neutrophils % 19 % 11 % Lymphocytes % 5 % 3 % Monocytes % 5 % 9 % Neutrophils # (Manual) 17.2 TH/MM3 13.3 TH/MM3 Platelet Estimate LOW LOW Platelet Morphology Comment NORMAL NORMAL Red Cell Morphology Comment NORMAL Rouleau PRESENT Imaging Last Impressions Chest X-Ray 06/13/17 0000 Signed Impressions: Service Date/Time: Tuesday, June 13, 2017 12:50 - CONCLUSION: 1. Bibasilar parenchymal change worse on the right. This could be an early inflammatory process. 2. PA and lateral chest is suggested to follow. Charly Maldonado MD FACR Head CT 06/12/171912 Signed Impressions: Service Date/Time: Monday, June 12, 2017 19:45 - CONCLUSION: Negative noncontrast head CT. Ebenezer Bejarano MD Last Impressions Head CT 06/12/171912 Signed Impressions: Service Date/Time: Monday, June 12, 2017 19:45 - CONCLUSION: Negative noncontrast head CT. Ebenezer Bejarano MD Chest X-Ray 06/12/171912 Signed Impressions: Service Date/Time: Monday, June 12, 2017 20:00 - CONCLUSION: No evidence of acute cardiopulmonary disease. Ebenezer Bejarano MD Objective Remarks Exam: Pleasant elderly female in no distress. HEENT: pupils equal, no scleral icterus, mouth negative. Heart: RRR with no murmurs Lungs: Faint crackles bases Abdomen: Soft, nontender Skin: rash in a dermatomal distribution from the back of her right chest to the front along the line of her right breast Extremity: no edema Neuro: Alert, oriented, no motor deficits. slight tremor right upper extremity and hand A/P Assessment and Plan Assessment: --Syncopal episode of questionable etiology--EEG normal --Episode of vomiting while unconscious and then developed cough afterwards and subsequent fever while in the ER--empirically being treated for potential aspiration pneumonia (she is allergic to PCN)-- elevated WBC likely reflective of that --Herpes zoster right chest --Stage 4 CKD --Hypertension --Hyperlipidemia --Secondary hyperparathyroidism of renal origin --Anemia likely of chronic kidney disease --Tremor right upper extremity --Mild thrombocytopenia Plan: --Appreciate neuro consult. --Continue Levaquin, Flagyl, Azactam and consult ID for aspiration pneumonia. Dr Bright is seeing her now. --Continue Acyclovir for the herpes zoster. I did stop the Gabapentin since it likely was causing adverse side effects as an outpatient. --Continue to monitor her kidney function but she reported last night that her GFR does run in the teens and she sees Dr Shukla. --Continue duoneb treatments and oxygen as needed. --Continue AL's/SCD's --Hold Losartan and Amlodipine for systolic BP <100 Anjel Agudelo MD Jun 14, 2017 10:20
--- NOTE | 2017-06-14 11:18 | MB ---
cc: JUNO QUINONES MD DATE OF CONSULTATION 06/14/[address] Jeffery REASON FOR CONSULTATION Possible aspiration pneumonia. HISTORY OF PRESENT ILLNESS This is an 87-year-old white female who was brought to the hospital on 06/12 with altered mental status. The patient is currently awake and alert. Her daughter is at the bedside. The patient does not recall what happened prior to the events that led to her being brought to the hospital. The daughter, however, was with the patient at home. The daughter describes that the patient became unresponsive while sitting on the porch and the daughter was shaking her and trying to arouse her and having some difficulty doing so initially. The patient started vomiting at the time and the daughter tilted her to one side to avoid her from choking on the vomit contents. The patient subsequently became more awake when the medics arrived. The daughter states that she was oriented by that time. She was taken to the emergency department for evaluation. Prior to being taken to the hospital, however, while the daughter was trying to arouse her, the patient subsequently went into the home and fell in the bathroom. In the emergency department, her temperature was normal and white blood cell count was normal and initial chest x-ray was unremarkable. CT scan of the head was also negative. Subsequently, the patient had a chest x-ray on 06/13 which showed bibasilar parenchymal change worse on the right. The patient noted that she was vomiting all night last night. She states that she has no appetite. Her white count climbed to 19.1 from 7.4 and today it is 15.1. The patient also has renal disease. Her creatinine is 3.0 today. There is no report of coffee-ground material or blood in the vomiting. She states that she has some pain in the mid chest area when she vomits. PAST MEDICAL HISTORY 1. Hypertension 2. Arthritis 3. Stage IV kidney disease 4. Dyslipidemia 5. History of pulmonary edema 6. Partial colectomy 7. Colon polyps 8. Shingles diagnosed within the last week 9. Total abdominal hysterectomy and BSO 10. Bilateral knee replacements. ALLERGIES PENICILLIN MEDICATIONS 1. Levaquin 2. Metronidazole 3. Aztreonam 4. Acyclovir 5. Lopressor which is currently being held 6. Lipitor 7. Cozaar 8. Aspirin 9. Norvasc SOCIAL HISTORY No alcohol, no tobacco, no illicit drugs. FAMILY HISTORY Noncontributory REVIEW OF SYSTEMS GENERAL: The patient denies chills. The patient denies fever. HEAD, EYES, EARS, NOSE, AND THROAT: No visual blurring or diplopia. No nasal bleeding. The patient denies difficulty swallowing. She notes mild discomfort. NECK: Denies neck pain or swelling. CARDIOVASCULAR: Denies chest pain or palpitation. RESPIRATORY: Denies shortness of breath or cough. GASTROINTESTINAL: Denies abdominal pain or diarrhea. Positive nausea. Positive vomiting. GENITOURINARY: Denies urgency, frequency or dysuria. MUSCULOSKELETAL: Denies muscle aches or pains. HEMATOPOIETIC: Denies easy or bleeding. INTEGUMENTARY: Denies skin rash or itching. NEUROLOGIC: Denies problems with coordination. PHYSICAL EXAM This is a slender female who is in no acute distress. She is awake, alert and oriented. VITAL SIGNS: Temperature 100.5, BP 116/65, respirations 20, heart rate 100. HEENT: Extraocular movements are grossly intact, pupils reactive to light. No icterus. Oropharynx moist mucosa without lesions. NECK: Supple without adenopathy. LUNGS: Bilateral rhonchi at the bases. HEART: Regular S1-S2. 1/6 systolic murmur left sternal border. ABDOMEN: Bowel sounds present, soft, no tenderness. RECTAL: Not performed. EXTREMITIES: No clubbing or cyanosis or edema. SKIN: Right chest wall rash. NEUROLOGIC: No gross focal findings. PSYCH: The patient is calm and cooperative. LABORATORY DATA WBC 15.1, platelets 116, hemoglobin 7.7, 87% neutrophils, 4% lymphocytes, 8% monocytes. Differential includes 11% bands. IMPRESSION 1. Bilateral pneumonia secondary to aspiration. 2. Patient status post syncopal episode. 3. Chronic kidney disease 4. Recent shingles. 5. Leukocytosis secondary to aspiration. RECOMMENDATIONS 1. Continue Azactam. 2. Continue Levaquin. 3. Discontinue metronidazole for now. 4. Monitor the white blood cell count 5. Monitor the temperature. 6. Monitor clinical response. Further adjustments to antibiotics will be made depending on the patient's response and clinical status upon on followup. Thank you this consultation. Juno Quinones MD FD/MICHELLE /10:18 AM /10:49 AM
--- NOTE | 2017-06-14 11:38 | RADRPT ---
EXAM DATE/TIME: 06/14/2017 10:15 [facility] COMPARISON: No previous studies available for comparison. INDICATIONS : Syncope. MEDICAL HISTORY : Hypercholesterolemia. Hypertension. Gastrointestinal polyp. Arthritis. Gout. Stage IV kidney dis ease. Hyperparathyroidism. SURGICAL HISTORY : Tonsillectomy. Appendectomy. Hysterectomy. Colon resection. Bilateral total knee replacement. Left renal artery stent. Right hemicolectomy. ENCOUNTER: Initial ACUITY: 3 days PAIN SCORE: 5/10 LOCATION: Bilateral neck PEAK SYSTOLIC VELOCITIES (cm/sec): ICA/CCA RATIO: Right: 1.2 Left: 1.9 ICA: Right: 161.6 Left: 205.4 CCA: Right: 132.2 Left: 110.0 ECA: Right: 275.5 Left: 187.2 VERTEBRAL: Right: 59.6 antegrade Left: 51.5 antegrade Elevated flow velocities and ICA/CCA ratios have been found to correlate with increased degrees of vessel stenosis, calculated as percentage of diameter relative to a normal segment of distal ICA/CCA FINDINGS: RIGHT CAROTID: Moderate severity calcified plaque at the right carotid bulb. LEFT CAROTID: Severe calcified plaque at the left carotid bulb. VERTEBRAL ARTERIES: Antegrade flow is seen in both vertebral arteries. MISCELLANEOUS: None. CONCLUSION: Elevated peak systolic velocity of the proximal left internal carotid artery indicating possible high -grade stenosis. Recommend CTA carotids for further evaluation. Elevated right external carotid peak systolic velocity also noted. Jim Marrero MD on June 14, 2017 at 11:34 Board Certified Radiologist. This report was verified electronically.
--- NOTE | 2017-06-14 14:54 | MB ---
cc: ORALIA JIMENEZ DATE OF CONSULTATION: 06/14/2017 DATE OF : [address] Anjel Agudelo. REASON FOR REFERRAL Anemia, nausea and vomiting. Thank you for the consultation. HISTORY OF PRESENT ILLNESS: This is a very pleasant 87-year-old lady who has multiple medical problems including nausea and vomiting, pneumonia and kidney disease, stage IV. The patient came complaining because of pneumonia and shortness of breath also nausea and vomiting. The patient found nonresponsive by a BANK [employer] who is her daughter, they tried to arouse her, but then they called -- and she was brought here. The patient had anemia which dropped since yesterday. She denied any GI bleed. She had a colonoscopy about 7 years ago and she was also found to have temperature of 100.5, CT of the head was negative but she was found to have pneumonia. PAST MEDICAL HISTORY Significant for coronary artery disease. Hyperlipidemia Stent in the kidney History of peptic ulcer disease History of colon polyps Gout. Chronic anemia felt to be related to kidney disease. ALLERGIES Multiple reviewed in the chart. MEDICATIONS Reviewed in the chart. FAMILY HISTORY Significant for coronary artery disease Kidney disease. Rheumatoid arthritis. Cerebrovascular accident. SOCIAL HISTORY No tobacco or alcohol. PAST SURGICAL HISTORY Significant for hysterectomy with oophorectomy, Carpal tunnel syndrome Hemicolectomy around 2009. REVIEW OF SYSTEMS All 12-point negative except HPI. PHYSICAL EXAMINATION IN GENERAL: Alert, oriented, In no acute distress at this time. VITAL SIGNS: Stable. No fever at this time. The patient laying in bed, seems to be comfortable. HEAD, EYES, EARS, NOSE, AND THROAT: Pupils are reactive to light. NECK: Supple. CARDIAC: Regular rate and rhythm. LUNGS: Clear to auscultation at this time. ABDOMEN: Soft, nondistended. Positive bowel sounds. No hepatosplenomegaly. SKIN: No jaundice, clear. EXTREMITIES: No edema, clubbing or cyanosis. NEUROLOGIC: Neurologically alert, oriented, pleasant, cooperative no focal abnormality. PSYCHIATRIC: Psychologically appropriate. LABORATORY DATA Sodium 138. Potassium 4.6, creatinine 3.0, GFR is about 16. Liver function tests normal. Albumin 3.3, INR 0.9, white count 15.1 down from 19.20 yesterday, hemoglobin 7.7 down from 8.4 and on admission was 9.5, platelets 116. ASSESSMENT AND PLAN: Pleasant 87-year-old lady with nausea and vomiting, questionable etiology, it could be reflux symptoms, could be peptic ulcer disease. The patient has anemia. She did not have any hematemesis and was known to have history of colon polyps. I discussed with her doing upper endoscopy and colonoscopy. She understands that the preparation would be difficult and so she would like to do just upper endoscopy to rule out peptic ulcer disease and see if there is any reason for anemia. Today she already ate some pudding with her pills so we will have to do it tomorrow. Meanwhile we will continue supportive care, check H&H and packed RBC as needed. MD SYED Lombardi/adilene /1:53 PM /2:31 PM
[2017-06-14] MEDS: SODIUM CHLOR 0.45% 1000 ML INJ 1,000 ML IV SCH (16:25)
[2017-06-15] VITALS (7 sets, daily range): BP systolic 116–124; BP diastolic 62–66; PULSE 84–94; RESP 18–20; TEMP 98–98.6; O2SAT 93–100
[2017-06-15] MEDS: AZTREONAM INJ 500 MG in SODIUM CHLORIDE 0.9% INJ 100 ML IV SCH ×3 (01:56→16:36)
[2017-06-15] MEDS: LEVOFLOXACIN 250 MG PREMIX INJ 50 ML IV SCH (01:57)
[2017-06-15] MEDS: ONDANSETRON HCL 4 MG/2 ML VIAL IV PRN ×2 (02:41→11:02)
[2017-06-15] MEDS: SODIUM CHLOR 0.45% 1000 ML INJ 1,000 ML IV SCH ×2 (02:48→16:36)
[2017-06-15] MEDS: RESP: ALBUTEROL 2.5 MG/IPRATROPIUM 0.5 MG NEB (SCH) NEB ×4 (03:12→21:31)
[2017-06-15] MEDS: hydrALAZINE HCL 50 MG TAB PO SCH ×3 (06:06→21:21)
[2017-06-15 06:47] LABS: AUTOMATED NEUTROPHIL # 11.1 TH/MM3 (1.8-7.7); BASOPHIL % 0.1 % (0.0-2.0); EOSINOPHIL # 0.1 TH/MM3 (0-0.4); EOSINOPHIL % 0.5 % (0.0-4.0); HEMATOCRIT 23.5 % (35.0-46.0); LYMPH % 5.3 % (9.0-44.0); LYMPHOCYTE # 0.7 TH/MM3 (1.0-4.8); MEAN CORPUSCULAR HEMOGLOBIN 30.4 PG (27.0-34.0); MEAN CORPUSCULAR HGB CONC 34.2 % (32.0-36.0); NEUT % 87.1 % (16.0-70.0); PLATELET COUNT 126 TH/MM3 (150-450); RED BLOOD COUNT 2.63 MIL/MM3 (4.00-5.30); RED CELL DISTRIBUTION WIDTH 13.3 % (11.6-17.2); WHITE BLOOD COUNT 12.8 TH/MM3 (4.0-11.0)
[2017-06-15 06:49] LABS: HEMO FLAGS DIFF FINAL
[2017-06-15 06:56] LABS: POTASSIUM 4.3 MEQ/L (3.5-5.1)
[2017-06-15 07:00] LABS: BICARBONATE 20.5 MEQ/L (21.0-32.0)
--- NOTE | 2017-06-15 07:56 | HHI.PR ---
Subjective Remarks She is going for an EGD after being seen by GI yesterday. She is complaining of some discomfort in her esophagus when she eats. She does mention that for a while she has had difficulty swallowing her pills. Her breathing is stable. Her BP dropped some yesterday so some of her BP medications were held and IV fluids rate increased. Objective Vitals Vital Signs Date Time Temp Pulse Resp B/P (MAP) Pulse Ox O2 Delivery O2 Flow Rate FiO2 06/14/17 23:47 97.5 102 20 95/53 (67) 97 06/14/17 21:33 95 Nasal Cannula 2.00 06/14/17 19:00 93 Nasal Cannula 2.00 06/14/17 16:22 98.4 101 20 98/46 (63) 96 06/14/17 16:00 95 Nasal Cannula 2.00 06/14/17 12:00 98.8 93 20 85/58 (67) 92 06/14/17 10:55 94 Nasal Cannula 2.00 06/14/17 10:53 87 21 06/14/17 09:55 96 Nasal Cannula 2.00 06/14/17 08:00 97.4 100 23 99/50 (66) 93 Result Diagram: 06/15/17 0624 06/15/17 0624 Other Results Laboratory Tests Test 06/14/17 08:25 06/15/17 06:24 White Blood Count 15.1 TH/MM3 12.8 TH/MM3 Red Blood Count 2.62 MIL/MM3 2.63 MIL/MM3 Hemoglobin 7.7 GM/DL 8.0 GM/DL Hematocrit 23.4 % 23.5 % Mean Corpuscular Volume 89.1 FL 89.0 FL Mean Corpuscular Hemoglobin 29.3 PG 30.4 PG Mean Corpuscular Hemoglobin Concent 32.9 % 34.2 % Red Cell Distribution Width 13.5 % 13.3 % Platelet Count 116 TH/MM3 126 TH/MM3 Mean Platelet Volume 9.0 FL 7.8 FL Neutrophils (%) (Auto) 87.8 % 87.1 % Lymphocytes (%) (Auto) 4.0 % 5.3 % Monocytes (%) (Auto) 8.2 % 7.0 % Eosinophils (%) (Auto) 0.0 % 0.5 % Basophils (%) (Auto) 0.0 % 0.1 % Neutrophils # (Auto) 13.3 TH/MM3 11.1 TH/MM3 Lymphocytes # (Auto) 0.6 TH/MM3 0.7 TH/MM3 Monocytes # (Auto) 1.2 TH/MM3 0.9 TH/MM3 Eosinophils # (Auto) 0.0 TH/MM3 0.1 TH/MM3 Basophils # (Auto) 0.0 TH/MM3 0.0 TH/MM3 CBC Comment AUTO DIFF DIFF FINAL Differential Total Cells Counted 100 Neutrophils % (Manual) 77 % Band Neutrophils % 11 % Lymphocytes % 3 % Monocytes % 9 % Neutrophils # (Manual) 13.3 TH/MM3 Differential Comment FINAL DIFF MANUAL Platelet Estimate LOW Platelet Morphology Comment NORMAL Rouleau PRESENT Blood Urea Nitrogen 56 MG/DL 50 MG/DL Creatinine 3.00 MG/DL 2.70 MG/DL Random Glucose 112 MG/DL 89 MG/DL Calcium Level 8.9 MG/DL 9.1 MG/DL Sodium Level 138 MEQ/L 138 MEQ/L Potassium Level 4.6 MEQ/L 4.3 MEQ/L Chloride Level 108 MEQ/L 108 MEQ/L Carbon Dioxide Level 19.0 MEQ/L 20.5 MEQ/L Anion Gap 11 MEQ/L 10 MEQ/L Estimat Glomerular Filtration Rate 15 ML/MIN 17 ML/MIN Imaging Last Impressions Carotid Artery Ultrasound 06/14/17 0000 Signed Impressions: Service Date/Time: May 10:15 - CONCLUSION: Elevated peak systolic velocity of the proximal left internal carotid artery indicating possible high-grade stenosis. Recommend CTA carotids for further evaluation. Elevated right external carotid peak systolic velocity also noted. Jim Marrero MD Chest X-Ray 06/13/17 0000 Signed Impressions: Service Date/Time: Tuesday, June 13, 2017 12:50 - CONCLUSION: 1. Bibasilar parenchymal change worse on the right. This could be an early inflammatory process. 2. PA and lateral chest is suggested to follow. Charly Maldonado MD FACR Head CT 06/12/17 191 Signed Impressions: Service Date/Time: Monday, June 12, 2017 19:45 - CONCLUSION: Negative noncontrast head CT. Ebenezer Bejarano MD Last Impressions Chest X-Ray 06/13/17 0000 Signed Impressions: Service Date/Time: Tuesday, June 13, 2017 12:50 - CONCLUSION: 1. Bibasilar parenchymal change worse on the right. This could be an early inflammatory process. 2. PA and lateral chest is suggested to follow. Charly Maldonado MD FACR Head CT [id number]/12/[id number] Signed Impressions: Service Date/Time: Monday, June 12, 2017 19:45 - CONCLUSION: Negative noncontrast head CT. Ebenezer Bejarano MD Last Impressions Head CT [id number]/12/[id number] Signed Impressions: Service Date/Time: Monday, June 12, 2017 19:45 - CONCLUSION: Negative noncontrast head CT. Ebenezer Bejarano MD Chest X-Ray [id number]/12/[id number] Signed Impressions: Service Date/Time: Monday, June 12, 2017 20:00 - CONCLUSION: No evidence of acute cardiopulmonary disease. Ebenezer Bejarano MD Objective Remarks Exam: Pleasant elderly female in no distress. HEENT: pupils equal, no scleral icterus, mouth negative. Heart: RRR with no murmurs Lungs: Faint crackles and some rhonchi in the lung bases Abdomen: Soft, nontender Skin: rash in a dermatomal distribution from the back of her right chest to the front along the line of her right breast Extremity: no edema Neuro: Alert, oriented, no motor deficits. slight tremor right upper extremity and hand A/P Assessment and Plan Assessment: --Syncopal episode of questionable etiology--EEG normal --Episode of vomiting while unconscious and then developed cough afterwards and subsequent fever while in the ER. Subsequent chest x-ray showed aspiration pneumonia both lung bases--was seen on 06-14-17 by infectious disease--currently on Levaquin and Azactam. Flagyl was stopped by ID --Right carotid artery stenosis--unable to do a CTA because of her stage 4 CKD --Possible GERD and intermittent trouble swallowing--going for an EGD today --Herpes zoster right chest --Stage 4 CKD --Hypertension --Hyperlipidemia --Secondary hyperparathyroidism of renal origin --Anemia likely of chronic kidney disease --Tremor right upper extremity --Mild thrombocytopenia Plan: --Appreciate neuro consult. --Continue Levaquin and Azactam.. --Continue Acyclovir for the herpes zoster. I did stop the Gabapentin on admission since it likely was causing adverse side effects as an outpatient. --Continue to monitor her kidney function which is around her baseline. Was a little better today. --Continue duoneb treatments and oxygen as needed. --Continue LA's/SCD's --Hold Losartan and Amlodipine for systolic BP <100 --EGD today Anjel Agudelo MD Jun 15, 2017 07:56
[2017-06-15] MEDS ORDERED: SODIUM CHLOR 0.9% 250 ML INJ 250 ML IV ONE (08:30)
[2017-06-15] MEDS ORDERED: PROPOFOL 200 MG/20 ML AMP IV ONE (08:52)
[2017-06-15] MEDS: ATORVASTATIN 40 MG TAB PO SCH (09:00)
[2017-06-15] MEDS: amLODIPine BESYLATE 5 MG TAB PO SCH (09:00)
[2017-06-15] MEDS: LOSARTAN 50 MG TAB PO SCH (09:00)
--- NOTE | 2017-06-15 10:13 | GIPROC ---
[facility] [address] [place] [address], [id number] EGD PROCEDURE REPORT EXAM DATE: 06/15/2017 PATIENT NAME: Allyson Gaines MR #: [id number] BIRTHDATE: 1930 ATTENDING: Kal Sesay MD ORDER #: [id number] EMERGENCY DEPT TECH: Priscilla Mixon and Aviva Trejo STATUS: inpatient INDICATIONS: The patient is a 87 yr old female here for an EGD due to anemia, vomiting, and nausea PROCEDURE PERFORMED: EGD w/ biopsy EGD w/ snare technique MEDICATIONS: None and Per Anesthesia. TOPICAL ANESTHETIC: none CONSENT: The patient understands the risks and benefits of the procedure and understands that these risks include, but are not limited to: sedation, allergic reaction, infection, perforation and/or bleeding. Alternative means of evaluation and treatment include, among others: physical exam, x-rays, and/or surgical intervention. The patient elects to proceed with this endoscopic procedure. medical equipment was checked for proper function. Hand hygiene and appropriate measures for infection prevention was taken. After the risks, benefits and alternatives of the procedure were thoroughly explained, Informed consent was verified, confirmed and timeout was successfully executed by the treatment team. The patient was anesthetized with topical anesthesia and the Pentax EG-[id number] endoscope was introduced through the mouth and advanced to the second portion of the duodenum. Retroflexed views revealed a few gastric polyps in the body of the stomach The gastroscope was then slowly withdrawn and removed. Severe grade D esophagitis and then lower half of the esophagus biopsy was done, most likely this is the reason for the nausea vomiting and anemia. Severe duodenitis and gastritis biopsy from the antrum to rule out H. pylori. The endoscopy was otherwise normal. Multiple polyps in the body of the stomach one of them removed by snare. ADVERSE EVENTS: There were no complications. IMPRESSIONS: 1. Severe grade D esophagitis and then lower half of the esophagus biopsy was done, most likely this is the reason for the nausea vomiting and anemia 2. Severe duodenitis and gastritis biopsy from the antrum to rule out H. pylori 3. Normal endoscopy otherwise 4. Multiple polyps in the body of the stomach one of them removed by snare 5. Retroflexed views revealed a few gastric polyps in the body of the stomach RECOMMENDATIONS: 1. Await biopsy results. Biopsy results will not be ready for 7-10 days. If you don't hear from us in two weeks, call our office for biopsy results. 2. Anti-reflux regimen 3. Start PPI 4. Avoid NSAIDS PATIENT CONDITION: stable DISPOSITION: Home REPEAT EXAM: Return as needed for EGD Kal Sesay MD eSigned: Kal Sesay MD 06/15/2017 10:12 AM cc: PATIENT NAME: Allyson Gaines MR#: [id number]
[2017-06-15] MEDS ORDERED: PANTOPRAZOLE SOD 20 MG DELAYED RELEASE TAB PO SCH (10:15)
--- NOTE | 2017-06-15 10:46 | HM ---
Date Performed: 06/13/2017 Time Performed: 17:44:00 HOOKUP DATE: 06/13/17 05:44:00 PM Wed ANALYSIS START TIME: 06/13/2017 5:49:00 PM ANALYSIS END TIME: 06/14/2017 5:53:00 PM PATIENT AGE: 87 PATIENT HEIGHT PATIENT WEIGHT DRUG LIST PATIENT DIAGNOSIS TEST NARRATIVE: The patient's average heart rate was 103 BPM. Heart rates greater than 120 BPM were noted 16% of the time. No episodes of bradycardia were noted. No pauses exceeding 2.0 s econds were noted. 11 ventricular ectopics, which represented < 1% of the total beat count, were noted. The highest ventricular ectopic frequency occurred from 03:00 PM to 04:00 PM Faye. During thi s time 2 VE(s) occurred. Ventricular ectopics were observed as 11 isolated beat(s) only. No couplet s or runs were noted. 327 supraventricular ectopics, which represented < 1% of the total beat cou nt, were noted. The highest supraventricular ectopic frequency occurred from 02:00 PM to 03:00 PM Th u. During this time 38 SVE(s) occurred. Multiple episodes of ST depression (defined as -1.0 mm o r more) were noted in channel 1. The maximum depression of -1.7 mm occurred at 05:52:26 PM Wed. Mu ltiple episodes of ST depression (defined as -1.0 mm or more) were noted in channel 2. The maximum depression of -1.6 mm occurred at 05:29:42 PM Faye. Multiple episodes of ST depression (defined as -1 .0 mm or more) were noted in channel 3. The maximum depression of -2.2 mm occurred at 05:29:45 PM T hu. NO DIARY MAINTAINED TEST INTERPRETATION: Holter monitor demonstrates Sinus rhythm with rather frequent episodes of sinus tachycardia up to 133 bpm. No significant bradycardia was not ed. There was a rare PVC and rare PAC noted and all of those were unifocal. Clinical correlation is recommended. Signed by : Sha john
[2017-06-15] MEDS: METOPROLOL TARTRATE 25 MG TAB PO SCH ×2 (10:53→21:21)
[2017-06-15] MEDS: ACYCLOVIR 800 MG TAB PO SCH ×2 (10:53→21:21)
[2017-06-15] MEDS: ASPIRIN 81 MG CHEW TAB CHEW SCH (10:55)
[2017-06-15] MEDS: SODIUM CHLORIDE 0.9% FLUSH 10 ML FLUSH IV FLUSH SCH ×2 (11:01→21:21)
--- NOTE | 2017-06-15 12:28 | RADRPT ---
EXAM DATE/TIME: 06/15/2017 11:41 [place] COMPARISON: No previous studies available for comparison. INDICATIONS : Stroke. Stenosis. MEDICAL HISTORY : Renal failure, chronic. Hypertension. SURGICAL HISTORY : Hysterectomy. Appendectomy. Bilat knee replacements. Esophageal dilitation. ENCOUNTER: Initial ACUITY: 2 day PAIN SCORE: 0/10 LOCATION: neck Percent stenosis is calculated using the diameter of the stenotic region over the diameter of the nor mal distal internal carotid artery. TECHNIQUE: 3D time of flight MRA of the extracranial circulation was performed using a neurovascu lar coil. Post processing was performed including rotating subvolume maximum intensity projections o f each carotid artery, rotating full-volume maximum intensity projections of both carotid arteries, s agittal and coronal sliding thin-slab reformations of each carotid artery, and left oblique sliding t hin slab reformation through the aortic arch to include the origin of the arch branch vessels. FINDINGS: AORTIC ARCH: There is a three vessel origin of the great vessels from the aorta. No evidence of ostial narrowing. RIGHT CAROTID: The common carotid artery is intact. The carotid bulb has a normal configuration without ulceration or narrowing. The internal carotid artery lumen is smooth without stenosis. The external carotid artery is intact. LEFT CAROTID: The common carotid artery is intact. The carotid bulb has a normal configuration w ithout ulceration or narrowing. The internal carotid artery lumen is smooth without stenosis. The e xternal carotid artery is intact. VERTEBRALS: The vertebral arteries have a symmetric diameter. No stenotic lesions are seen. CONCLUSION: Negative for hemodynamically significant stenosis. Charly Maldonado MD FACR on June 15, 2017 at 12:24 Board Certified Radiologist. This report was verified electronically.
--- NOTE | 2017-06-15 19:29 | HHI.IDPN ---
Subjective Subjective Remarks DISREGARD THIS NOTE Allergies: Coded Allergies: penicillin G (Unverified Allergy, Mild, Rash, 06/12/17) Objective . Vital Signs Date Time Temp Pulse Resp B/P (MAP) Pulse Ox O2 Delivery O2 Flow Rate FiO2 06/15/17 16:36 98.0 94 20 116/66 (83) 97 06/15/17 15:52 97 Nasal Cannula 2.00 06/15/17 15:47 98.0 94 20 116/66 (83) 97 06/15/17 12:00 98.4 94 20 116/66 (83) 97 06/15/17 10:01 93 Nasal Cannula 2.00 06/15/17 09:15 93 18 106/49 (68) 95 06/15/17 09:10 94 18 108/56 (73) 95 06/15/17 09:05 98.6 95 18 104/62 (76) 97 Nasal Cannula 4 06/15/17 09:05 98.6 95 18 104/62 (76) 97 06/15/17 08:08 98.1 95 18 124/67 (86) 96 06/15/17 07:53 97 Nasal Cannula 2.00 06/14/17 23:47 97.5 102 20 95/53 (67) 97 06/14/17 21:33 95 Nasal Cannula 2.00 06/15/17 06/15/17 06/16/17 15:00 23:00 07:00 Intake Total 100 ml 898 ml Balance 100 ml 898 ml IV Total 898 ml Other 100 ml # Voids 2 # Bowel Movements 0 . Laboratory Tests Test 06/14/17 08:25 06/15/17 06:24 White Blood Count 15.1 TH/MM3 12.8 TH/MM3 Red Blood Count 2.62 MIL/MM3 2.63 MIL/MM3 Hemoglobin 7.7 GM/DL 8.0 GM/DL Hematocrit 23.4 % 23.5 % Mean Corpuscular Volume 89.1 FL 89.0 FL Mean Corpuscular Hemoglobin 29.3 PG 30.4 PG Mean Corpuscular Hemoglobin Concent 32.9 % 34.2 % Red Cell Distribution Width 13.5 % 13.3 % Platelet Count 116 TH/MM3 126 TH/MM3 Mean Platelet Volume 9.0 FL 7.8 FL Neutrophils (%) (Auto) 87.8 % 87.1 % Lymphocytes (%) (Auto) 4.0 % 5.3 % Monocytes (%) (Auto) 8.2 % 7.0 % Eosinophils (%) (Auto) 0.0 % 0.5 % Basophils (%) (Auto) 0.0 % 0.1 % Neutrophils # (Auto) 13.3 TH/MM3 11.1 TH/MM3 Lymphocytes # (Auto) 0.6 TH/MM3 0.7 TH/MM3 Monocytes # (Auto) 1.2 TH/MM3 0.9 TH/MM3 Eosinophils # (Auto) 0.0 TH/MM3 0.1 TH/MM3 Basophils # (Auto) 0.0 TH/MM3 0.0 TH/MM3 CBC Comment AUTO DIFF DIFF FINAL Differential Total Cells Counted 100 Neutrophils % (Manual) 77 % Band Neutrophils % 11 % Lymphocytes % 3 % Monocytes % 9 % Neutrophils # (Manual) 13.3 TH/MM3 Differential Comment FINAL DIFF MANUAL Platelet Estimate LOW Platelet Morphology Comment NORMAL Rouleau PRESENT Laboratory Tests Test 06/14/17 08:25 06/15/17 06:24 Blood Urea Nitrogen 56 MG/DL 50 MG/DL Creatinine 3.00 MG/DL 2.70 MG/DL Random Glucose 112 MG/DL 89 MG/DL Calcium Level 8.9 MG/DL 9.1 MG/DL Sodium Level 138 MEQ/L 138 MEQ/L Potassium Level 4.6 MEQ/L 4.3 MEQ/L Chloride Level 108 MEQ/L 108 MEQ/L Carbon Dioxide Level 19.0 MEQ/L 20.5 MEQ/L Anion Gap 11 MEQ/L 10 MEQ/L Estimat Glomerular Filtration Rate 15 ML/MIN 17 ML/MIN Microbiology Date/Time Source Procedure Growth Status 06/12/17 20:00 Blood Peripheral Aerobic Blood Culture - Preliminary Resulted 06/12/17 20:00 Blood Peripheral Anaerobic Blood Culture - Preliminary NO GROWTH IN 3 DAYS Resulted 06/12/17 19:35 Blood Peripheral Aerobic Blood Culture - Preliminary NO GROWTH IN 3 DAYS Resulted 06/12/17 19:35 Blood Peripheral Anaerobic Blood Culture - Preliminary NO GROWTH IN 3 DAYS Resulted Lorri Jasso MD Jun 15, 2017 19:29
--- NOTE | 2017-06-15 19:36 | HHI.IDPN ---
Subjective Subjective Remarks ID X cover for Dr Harris chart was reviewed 87 yo pt who came with MS change Has shingles R chest, PNA and ARF She is better today Her creatinine improved SHe denies chest pain + some mildly productive cough with yellowish sputum afebrile Better today - per pt , family and RN Antibiotics levaquin azactam zovirax Allergies: Coded Allergies: penicillin G (Unverified Allergy, Mild, Rash, 06/12/17) Objective . Vital Signs Date Time Temp Pulse Resp B/P (MAP) Pulse Ox O2 Delivery O2 Flow Rate FiO2 06/15/17 16:36 98.0 94 20 116/66 (83) 97 06/15/17 15:52 97 Nasal Cannula 2.00 06/15/17 15:47 98.0 94 20 116/66 (83) 97 06/15/17 12:00 98.4 94 20 116/66 (83) 97 06/15/17 10:01 93 Nasal Cannula 2.00 06/15/17 09:15 93 18 106/49 (68) 95 06/15/17 09:10 94 18 108/56 (73) 95 06/15/17 09:05 98.6 95 18 104/62 (76) 97 Nasal Cannula 4 06/15/17 09:05 98.6 95 18 104/62 (76) 97 06/15/17 08:08 98.1 95 18 124/67 (86) 96 06/15/17 07:53 97 Nasal Cannula 2.00 06/14/17 23:47 97.5 102 20 95/53 (67) 97 06/14/17 21:33 95 Nasal Cannula 2.00 06/15/17 06/15/17 06/16/17 15:00 23:00 07:00 Intake Total 100 ml 898 ml Balance 100 ml 898 ml IV Total 898 ml Other 100 ml # Voids 2 # Bowel Movements 0 . Laboratory Tests Test 06/14/17 08:25 06/15/17 06:24 White Blood Count 15.1 TH/MM3 12.8 TH/MM3 Red Blood Count 2.62 MIL/MM3 2.63 MIL/MM3 Hemoglobin 7.7 GM/DL 8.0 GM/DL Hematocrit 23.4 % 23.5 % Mean Corpuscular Volume 89.1 FL 89.0 FL Mean Corpuscular Hemoglobin 29.3 PG 30.4 PG Mean Corpuscular Hemoglobin Concent 32.9 % 34.2 % Red Cell Distribution Width 13.5 % 13.3 % Platelet Count 116 TH/MM3 126 TH/MM3 Mean Platelet Volume 9.0 FL 7.8 FL Neutrophils (%) (Auto) 87.8 % 87.1 % Lymphocytes (%) (Auto) 4.0 % 5.3 % Monocytes (%) (Auto) 8.2 % 7.0 % Eosinophils (%) (Auto) 0.0 % 0.5 % Basophils (%) (Auto) 0.0 % 0.1 % Neutrophils # (Auto) 13.3 TH/MM3 11.1 TH/MM3 Lymphocytes # (Auto) 0.6 TH/MM3 0.7 TH/MM3 Monocytes # (Auto) 1.2 TH/MM3 0.9 TH/MM3 Eosinophils # (Auto) 0.0 TH/MM3 0.1 TH/MM3 Basophils # (Auto) 0.0 TH/MM3 0.0 TH/MM3 CBC Comment AUTO DIFF DIFF FINAL Differential Total Cells Counted 100 Neutrophils % (Manual) 77 % Band Neutrophils % 11 % Lymphocytes % 3 % Monocytes % 9 % Neutrophils # (Manual) 13.3 TH/MM3 Differential Comment FINAL DIFF MANUAL Platelet Estimate LOW Platelet Morphology Comment NORMAL Rouleau PRESENT Laboratory Tests Test 06/14/17 08:25 06/15/17 06:24 Blood Urea Nitrogen 56 MG/DL 50 MG/DL Creatinine 3.00 MG/DL 2.70 MG/DL Random Glucose 112 MG/DL 89 MG/DL Calcium Level 8.9 MG/DL 9.1 MG/DL Sodium Level 138 MEQ/L 138 MEQ/L Potassium Level 4.6 MEQ/L 4.3 MEQ/L Chloride Level 108 MEQ/L 108 MEQ/L Carbon Dioxide Level 19.0 MEQ/L 20.5 MEQ/L Anion Gap 11 MEQ/L 10 MEQ/L Estimat Glomerular Filtration Rate 15 ML/MIN 17 ML/MIN Microbiology Date/Time Source Procedure Growth Status 06/12/17 20:00 Blood Peripheral Aerobic Blood Culture - Preliminary Resulted 06/12/17 20:00 Blood Peripheral Anaerobic Blood Culture - Preliminary NO GROWTH IN 3 DAYS Resulted 06/12/17 19:35 Blood Peripheral Aerobic Blood Culture - Preliminary NO GROWTH IN 3 DAYS Resulted 06/12/17 19:35 Blood Peripheral Anaerobic Blood Culture - Preliminary NO GROWTH IN 3 DAYS Resulted Imaging Last Impressions Neck Magnetic Resonance Angiography 06/15/17 0000 Signed Impressions: Service Date/Time: Thursday, June 15, 2017 11:41 - CONCLUSION: Negative for hemodynamically significant stenosis. Charly Maldonado MD FACR Carotid Artery Ultrasound 06/14/17 0000 Signed Impressions: Service Date/Time: May 10:15 - CONCLUSION: Elevated peak systolic velocity of the proximal left internal carotid artery indicating possible high-grade stenosis. Recommend CTA carotids for further evaluation. Elevated right external carotid peak systolic velocity also noted. Jim Marrero MD Chest X-Ray 06/13/17 0000 Signed Impressions: Service Date/Time: Tuesday, June 13, 2017 12:50 - CONCLUSION: 1. Bibasilar parenchymal change worse on the right. This could be an early inflammatory process. 2. PA and lateral chest is suggested to follow. Charly Maldonado MD FACR Head CT 06/12/17 191 Signed Impressions: Service Date/Time: Monday, June 12, 2017 19:45 - CONCLUSION: Negative noncontrast head CT. Ebenezer Bejaraon MD Physical Exam GENERAL: OOB in a chair in no acute distress. She is awake, alert and oriented. HEENT: Extraocular movements are grossly intact, pupils reactive to light. No icterus. Oropharynx moist mucosa without lesions. NECK: Supple without adenopathy. LUNGS: scattred bilateral rhonchi at the bases. HEART: Regular S1-S2. 1/6 systolic murmur left sternal border. ABDOMEN: Bowel sounds present, soft, no tenderness. Not distended EXTREMITIES: No clubbing or cyanosis or edema. SKIN: Right chest wall rash.posteriorly and anteriorly NEUROLOGIC: Awak[place] and alert. No gross focal findings. RUE tremor, likley essential tremor PSYCH: The patient is calm and cooperative. Assessment & Plan Remarks IMPRESSION 1. Bilateral pneumonia ? aspiration 2. Patient status post syncopal episode. 3. Acute on chronic kidney disease: creastinine better 4. R chest shingles. 5. Leukocytosis 6. ow grade GPC nbacteremia dw microlab ? micrococcus RECOMMENDATIONS 1. Continue Azactam. 2. Continue Levaquin. 3 Monitor the white blood cell count 4. Monitor blood clx untill final 5. Monitor the temperature. 6. Monitor clinical response. oniel RN dw family @ b/s Lorri Jasso MD Jun 15, 2017 19:36
[2017-06-16] VITALS (51 sets, daily range): BP systolic 49–154; BP diastolic 27–78; PULSE 91–114; RESP 13–40; TEMP 97.6–98.7; O2SAT 97–100
[2017-06-16] MEDS: AZTREONAM INJ 500 MG in SODIUM CHLORIDE 0.9% INJ 100 ML IV SCH ×2 (01:07→22:27)
[2017-06-16] MEDS: RESP: ALBUTEROL 2.5 MG/IPRATROPIUM 0.5 MG NEB (SCH) NEB ×2 (03:35→10:00)
[2017-06-16] MEDS: SODIUM CHLOR 0.45% 1000 ML INJ 1,000 ML IV SCH (06:32)
[2017-06-16] MEDS: hydrALAZINE HCL 50 MG TAB PO SCH ×2 (06:32→14:00)
--- NOTE | 2017-06-16 07:15 | HHI.PR ---
Subjective Remarks Feeling better day by day. Gaining strength. Less cough. Still having some burning in her upper stomach and lower esophageal area particularly at night. No vomiting or diarrhea. No fevers or chills. Objective Vitals Vital Signs Date Time Temp Pulse Resp B/P (MAP) Pulse Ox O2 Delivery O2 Flow Rate FiO2 06/16/17 04:00 98.4 107 20 106/64 (78) 97 06/15/17 21:32 97 Nasal Cannula 1.50 06/15/17 19:52 98.6 84 18 124/62 (82) 100 06/15/17 19:00 100 Nasal Cannula 2.00 06/15/17 16:36 98.0 94 20 116/66 (83) 97 06/15/17 15:52 97 Nasal Cannula 2.00 06/15/17 15:47 98.0 94 20 116/66 (83) 97 06/15/17 12:00 98.4 94 20 116/66 (83) 97 06/15/17 10:01 93 Nasal Cannula 2.00 06/15/17 09:15 93 18 106/49 (68) 95 06/15/17 09:10 94 18 108/56 (73) 95 06/15/17 09:05 98.6 95 18 104/62 (76) 97 Nasal Cannula 4 06/15/17 09:05 98.6 95 18 104/62 (76) 97 06/15/17 08:08 98.1 95 18 124/67 (86) 96 06/15/17 07:53 97 Nasal Cannula 2.00 GENERAL: Elderly, awake and alert, pleasant and cooperative. No acute distress. SKIN: Warm and dry. Purpuric lesions on forearms. Herpetiform mildly erythematous rash right upper chest. HEAD: Normocephalic. EYES: No scleral icterus. No injection or drainage. NECK: Supple, trachea midline. No JVD or lymphadenopathy. CARDIOVASCULAR: Regular rate and rhythm without murmurs, gallops, or rubs. RESPIRATORY: No wheeze. Coarse bronchovesicular sounds in right base with noted coughing reflex on deep inspiration. Left lung clear to auscultation. No accessory muscle use. GASTROINTESTINAL: Abdomen soft, non-tender, nondistended. Bowel sounds normal. MUSCULOSKELETAL: No cyanosis, trace edema bilateral distal lower extremities. SCDs in place bilateral lower extremities. BACK: No CVA tenderness. Result Diagram: 06/15/1724 06/15/1724 Imaging Last Impressions Carotid Artery Ultrasound 06/14/17 0000 Signed Impressions: Service Date/Time: May 10:15 - CONCLUSION: Elevated peak systolic velocity of the proximal left internal carotid artery indicating possible high-grade stenosis. Recommend CTA carotids for further evaluation. Elevated right external carotid peak systolic velocity also noted. Jim Marrero MD Chest X-Ray 06/13/17 0000 Signed Impressions: Service Date/Time: Tuesday, June 13, 2017 12:50 - CONCLUSION: 1. Bibasilar parenchymal change worse on the right. This could be an early inflammatory process. 2. PA and lateral chest is suggested to follow. Charly Maldonado MD FACR Head CT 06/12/171912 Signed Impressions: Service Date/Time: Monday, June 12, 2017 19:45 - CONCLUSION: Negative noncontrast head CT. Ebenezer Bejarano MD Last Impressions Chest X-Ray 06/13/17 0000 Signed Impressions: Service Date/Time: Tuesday, June 13, 2017 12:50 - CONCLUSION: 1. Bibasilar parenchymal change worse on the right. This could be an early inflammatory process. 2. PA and lateral chest is suggested to follow. Charly Maldonado MD FACR Head CT 06/12/171912 Signed Impressions: Service Date/Time: Monday, June 12, 2017 19:45 - CONCLUSION: Negative noncontrast head CT. Ebenezer Bejarano MD Last Impressions Head CT 06/12/171912 Signed Impressions: Service Date/Time: Monday, June 12, 2017 19:45 - CONCLUSION: Negative noncontrast head CT. Ebenezer Bejarano MD Chest X-Ray 06/12/171912 Signed Impressions: Service Date/Time: Monday, June 12, 2017 20:00 - CONCLUSION: No evidence of acute cardiopulmonary disease. Ebenezer Bejarano MD Urinary Catheter: No Vascular Central Line Catheter: No A/P Problem List: (1) Syncopal episodes ICD Codes: R55 - Syncope and collapse Plan: Seems to have resolved. Has occurred at least on one occasion previously as outpatient as well her family. Appreciate neurology input. EEG, neck MRA and Holter unrevealing. We'll continue to follow. It is noted that she had recently been started on gabapentin which apparently caused her some altered mentation and lethargy. Her mentation seems to be back at baseline and gabapentin remains discontinued. (2) Pneumonia, aspiration ICD Codes: J69.0 - Pneumonitis due to inhalation of food and vomit Plan: Clinically improving. Likely occurred due to emesis when she had the syncopal episode. We'll continue Levaquin and Azactam. No longer on metronidazole. Infectious disease input appreciated. (3) GERD (gastroesophageal reflux disease) ICD Codes: K21.9 - Gastro-esophageal reflux disease without esophagitis Plan: EGD revealed severe esophagitis, gastritis and duodenitis. Biopsies are pending. Continue Protonix. We'll add Carafate. (4) CKD (chronic kidney disease) stage 4, GFR 15-29 ml/min ICD Codes: N18.4 - Chronic kidney disease, stage 4 (severe) Status: Chronic Plan: Renal indices improved a bit. Similar to her baseline. Continue to monitor. (5) Anemia ICD Codes: D64.9 - Anemia, unspecified Status: Chronic Plan: Hemoglobin is relatively stable. Likely multifactorial associated with chronic kidney disease stage IV as well as the significant esophagitis and gastritis as noted. We'll continue to monitor. Vitals are stable. Can be followed further as outpatient. May benefit from Epogen as an outpatient. (6) Hypertension ICD Codes: I10 - Essential (primary) hypertension Status: Chronic Plan: Well-controlled. Continue current therapy. (7) Shingles ICD Codes: B02.9 - Zoster without complications Status: Acute Plan: Continue current therapy. Gabapentin has been discontinued. Pain seems relatively well controlled. 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
[2017-06-16 07:51] LABS: AUTOMATED NEUTROPHIL # 6.8 TH/MM3 (1.8-7.7); BASOPHIL % 0.3 % (0.0-2.0); EOSINOPHIL # 0.1 TH/MM3 (0-0.4); LYMPH % 8.6 % (9.0-44.0); LYMPHOCYTE # 0.7 TH/MM3 (1.0-4.8); MEAN CELL VOLUME 89.8 FL (80.0-100.0); MEAN CORPUSCULAR HEMOGLOBIN 30.5 PG (27.0-34.0); MONO % 7.1 % (0.0-8.0); PLATELET COUNT 120 TH/MM3 (150-450); RED BLOOD COUNT 2.29 MIL/MM3 (4.00-5.30); RED CELL DISTRIBUTION WIDTH 13.8 % (11.6-17.2); WHITE BLOOD COUNT 8.2 TH/MM3 (4.0-11.0)
[2017-06-16 07:55] LABS: HEMATOCRIT 21.1 % (35.0-46.0); HEMO FLAGS AUTO DIFF
[2017-06-16] MEDS: ONDANSETRON HCL 4 MG/2 ML VIAL IV PRN ×2 (08:10→13:07)
[2017-06-16 08:36] LABS: SCAN/DIFF AUTO DIFF CONFIRMED
[2017-06-16] MEDS: METOPROLOL TARTRATE 25 MG TAB PO SCH ×2 (09:00→21:00)
[2017-06-16] MEDS: SODIUM CHLORIDE 0.9% FLUSH 10 ML FLUSH IV FLUSH SCH (09:00)
[2017-06-16] MEDS: amLODIPine BESYLATE 5 MG TAB PO SCH (09:00)
[2017-06-16] MEDS: ASPIRIN 81 MG CHEW TAB CHEW SCH (09:00)
[2017-06-16] MEDS: ATORVASTATIN 40 MG TAB PO SCH (09:00)
[2017-06-16] MEDS: LOSARTAN 50 MG TAB PO SCH (09:00)
[2017-06-16] MEDS ORDERED: PROMETHAZINE INJ 25 MG/ML VIAL IM PRN (09:15)
--- NOTE | 2017-06-16 09:59 | HHI.GIFU ---
Subjective Remarks Patient was seen and examined, she had dark blood vomiting, drop in hemoglobin to 7.0, still nauseated no appetite to eat Objective Vitals I&O Vital Signs Date Time Temp Pulse Resp B/P (MAP) Pulse Ox O2 Delivery O2 Flow Rate FiO2 06/16/17 09:11 97.6 91 15 123/72 (89) 98 06/16/17 04:00 98.4 107 20 106/64 (78) 97 06/15/17 21:32 97 Nasal Cannula 1.50 06/15/17 19:52 98.6 84 18 124/62 (82) 100 06/15/17 19:00 100 Nasal Cannula 2.00 06/15/17 16:36 98.0 94 20 116/66 (83) 97 06/15/17 15:52 97 Nasal Cannula 2.00 06/15/17 15:47 98.0 94 20 116/66 (83) 97 06/15/17 12:00 98.4 94 20 116/66 (83) 97 06/15/17 10:01 93 Nasal Cannula 2.00 I/O 06/15/17 06/15/17 06/15/17 06/16/17 06/16/17 06/16/17 07:00 15:00 23:00 07:00 15:00 23:00 Intake Total 630 ml 100 ml 898 ml 220 ml Output Total 1200 ml Balance 630 ml 100 ml 898 ml 220 ml -1200 ml Intake Oral 480 ml 120 ml IV Total 150 ml 898 ml 100 ml Other 100 ml Emesis 1200 ml # Voids 2 2 3 # Bowel Movements 0 0 Laboratory Laboratory Tests Test 06/16/17 07:20 White Blood Count 8.2 Red Blood Count 2.29 Hemoglobin 7.0 Hematocrit 21.1 Mean Corpuscular Volume 89.8 Mean Corpuscular Hemoglobin 30.5 Mean Corpuscular Hemoglobin Concent 34.0 Red Cell Distribution Width 13.8 Platelet Count 120 Mean Platelet Volume 8.0 Neutrophils (%) (Auto) 83.0 Lymphocytes (%) (Auto) 8.6 Monocytes (%) (Auto) 7.1 Eosinophils (%) (Auto) 1.0 Basophils (%) (Auto) 0.3 Neutrophils # (Auto) 6.8 Lymphocytes # (Auto) 0.7 Monocytes # (Auto) 0.6 Eosinophils # (Auto) 0.1 Basophils # (Auto) 0.0 CBC Comment AUTO DIFF Differential Comment AUTO DIFF CONFIRMED Date/Time Source Procedure Growth Status 06/12/17 20:00 Blood Peripheral Aerobic Blood Culture - Final Micrococcus Species Resulted 06/12/17 20:00 Blood Peripheral Anaerobic Blood Culture - Preliminary NO GROWTH IN 3 DAYS Resulted Physical Exam HEENT: Pupils round and reactive to light; normocephalic; atraumatic; no jaundice. Throat is clear. NECK: Neck is supple, no JVD, no lymphadenopathy. CHEST: Chest is clear to auscultation and percussion. CARDIAC: Regular rate and rhythm with no murmur gallop or rubs. ABDOMEN: Soft, nondistended, nontender; no hepatosplenomegaly; bowel sounds are present in all four quadrants. EXTREMITIES: No clubbing, cyanosis, or edema. SKIN: Normal; no rash; no jaundice. LEGAL SERVICE SPECIALIST: No focal deficits; alert and oriented times three. Assessment and Plan Plan Patient has multiple medical problems including chronic renal insufficiency She had upper endoscopy yesterday which shows severe esophagitis grade D almost the lower half of the esophagus biopsy was done, Hemoglobin went down to 7.0 We will give patient 1 unit of packed RBC We will increase the PPI Hold off on endoscopy for now according to the family and patient wishes She was transferred to the ICU for closer monitoring Kal Sesay MD Jun 16, 2017 09:59
[2017-06-16] MEDS ORDERED: PANTOPRAZOLE SOD 20 MG DELAYED RELEASE TAB PO ONE (10:00)
[2017-06-16] MEDS ORDERED: SODIUM CHLORID 0.9% 500 ML INJ 500 ML IV SCH ×2 (11:00→16:00)
[2017-06-16] MEDS ORDERED: NOREPINEPHRINE-DEXTROSE DRIP 250 ML IV ONE (11:51)
[2017-06-16] MEDS ORDERED: CHLORHEXIDINE GLUCONATE 2 % 1 PACK (2 CLOTHS)(extra cloths) TOPICAL PRN (12:00)
--- NOTE | 2017-06-16 12:11 | HHI.PR ---
Addendum to Inpatient Note Addendum Reason: Additional Documentation Additional Information Pt was quite stable and doing well on my initial exam this AM. However appx 1 1/ 2 hrs after my initial visit she began having some hematemesis. Initially was only 1/2 cup and zofran helped a bit. However she started wretching again and produced more blood. Hb had also dropped to 7. PRBCs were ordered, GI notified and pt transferred to ICU with CCM consult obtained. BPs initially were fine on med/surg floor, but dropped into 60/40s in ICU. MAP responded to IVF bolus initially, but has started to drift back down again. I spoke with Dr Brewster who requested pt be transferred to ICU at [facility] given possible need for more blood than the 2 units we have and for possible pressor support/ central line placement. I ordered transfer of pt with nurse (Rodolfo) and advised further consultation with Dr Brewster if BP started to drop more. I spoke with Kaela (pt's daughter) who is in agreement with transfer and that her mother would want these interventions done. Pt is not desirous of prolonged life support should the need arise, but would not be opposed to initial ACLS if needed. 2:45 PM...Pt currently being transferred via [facility] to [facility] at [facility]. I made Dr Nelson and Dr Brewster aware of transfer. Pt responded well to Levopheb and second bolus of fluids. Brenden Raymond MD PhD Jun 16, 2017 12:11
[2017-06-16] MEDS: NOREPINEPHRINE 4 MG/D5W 250 ML IV PRN ×2 (12:30→22:37)
[2017-06-16] MEDS ORDERED: SODIUM CHLOR 0.9% 1000 ML INJ 1,000 ML IV ONE (14:00)
[2017-06-16] MEDS: SODIUM CHLOR 0.9% 1000 ML INJ 1,000 ML IV SCH (15:10)
[2017-06-16] MEDS ORDERED: MISCELLANEOUS NURSING INFORMATION XX SCH (15:15)
[2017-06-16] MEDS ORDERED: RESP: ALBUTEROL 2.5 MG/IPRATROPIUM 0.5 MG NEB (PRN) INH (15:15)
[2017-06-16] MEDS ORDERED: LACTULOSE SYRUP 20 GM/30 ML CUP PO PRN (15:15)
[2017-06-16] MEDS ORDERED: BISACODYL 10 MG SUPP RECTAL PRN (15:15)
[2017-06-16] MEDS ORDERED: CHLORHEXIDINE GLUCONATE 2 % 1 PACK (2 CLOTHS) TOP PRN (15:15)
[2017-06-16] MEDS ORDERED: MAGNESIUM HYDROXIDE SUSP 30 ML CUP PO PRN (15:15)
[2017-06-16] MEDS ORDERED: SODIUM CHLORIDE 0.9% FLUSH 10 ML FLUSH IV FLUSH PRN (15:15)
[2017-06-16] MEDS ORDERED: SENNOSIDES 8.6 MG TAB PO PRN (15:15)
[2017-06-16] MEDS ORDERED: PROPOFOL 1000 MG/100 ML INJ 100 ML ONE (15:33)
[2017-06-16] MEDS ORDERED: ETOMIDATE 20 MG/10 ML VIAL ONE (15:34)
[2017-06-16 15:53] LABS: HEMATOCRIT 27.5 % (35.0-46.0); MEAN CELL VOLUME 85.5 FL (80.0-100.0); MEAN CORPUSCULAR HEMOGLOBIN 29.1 PG (27.0-34.0); PLATELET COUNT 103 TH/MM3 (150-450); RED BLOOD COUNT 3.22 MIL/MM3 (4.00-5.30); RED CELL DISTRIBUTION WIDTH 14.9 % (11.6-17.2); REVIEW FLAG FINAL; WHITE BLOOD COUNT 9.3 TH/MM3 (4.0-11.0)
[2017-06-16] MEDS ORDERED: SUCCINYLCHOLINE CHLORIDE 200 MG/10 ML VIAL ONE (15:55)
[2017-06-16] MEDS: PROPOFOL 1000 MG/100 ML INJ 100 ML IV PRN ×2 (16:00→22:37)
[2017-06-16] MEDS ORDERED: ROCURONIUM INJ 50 MG/5 ML VIAL IV ONE (16:00)
[2017-06-16 16:05] LABS: INTERNATIONAL NORMALIZED RATIO 1.1 RATIO
[2017-06-16 16:27] LABS: BICARBONATE 16.7 MEQ/L (21.0-32.0); POTASSIUM 5.4 MEQ/L (3.5-5.1)
--- NOTE | 2017-06-16 16:42 | HHI.PR ---
Addendum to Inpatient Note Additional Information X ferred to ICU 2/2 GIB EGD: esophagitis BC with Micrococcus 1/ cw contamination no neeed fro additional abx dw Lorri Larkin MD Jun 16, 2017 16:42
[2017-06-16 16:45] LABS: CALCIUM-PROTEIN CORRECTED 9.1 MG/DL (8.5-10.1)
--- NOTE | 2017-06-16 16:54 | PD.PROCEDR ---
Procedure Note Procedure Procedure: Arterial Line Placement Right radial Diagnosis: Hypovolemic shock very to acute blood loss anemia Indications: Same Consent: Obtained from family Description of the Procedure: The was prepped and draped sterilely. 1% lidocaine was used for local anesthesia. The pulse was located and a needle was advanced into the artery. A 20 gauge, 1.34cm catheter was advanced into the artery using a modified Seldinger technique. The catheter was sutured to the skin and a sterile dressing was applied. The catheter was connected to a pressure transducer and an arterial waveform was noted. There were no immediate complications noted. There was minimal EBL. I personally performed the procedure. Eugenia Arnett MD Jun 16, 2017 16:54
--- NOTE | 2017-06-16 16:54 | RADRPT ---
EXAM DATE/TIME: 06/16/2017 16:24 [place] COMPARISON: CHEST SINGLE AP, June 12, 2017, 20:00. INDICATIONS : Post intubation and right sided central line placement. MEDICAL HISTORY : Hypertension. Cardiovascular disease SURGICAL HISTORY : Coronary artery stent. Appendectomy. Hysterectomy. Colon resection ENCOUNTER: Initial ACUITY: 1 day PAIN SCORE: Non-responsive. LOCATION: Bilateral chest FINDINGS: Endotracheal tube tip is 1.2 cm above the samreen and needs be withdrawn at least 1 cm. Right interna l jugular catheter is in place with the tip projected over the distal superior vena cava. No evidenc e of pneumothorax. The heart is normal in size. There is consolidation in the left lower lung causi ng loss of delineation of the entire left hemidiaphragm. Some patchy infiltrates are present at the right lung base. No evidence of mediastinal shift. CONCLUSION: 1. Right IJ catheter in good position without evidence of pneumothorax. 2. The endotracheal tube tip is close to the samreen and needs to be withdrawn at least 1 cm. 3. Left lower lung consolidation and patchy infiltrates in the right lower lung. Minesh Rojas MD on June 16, 2017 at 16:50 Board Certified Radiologist. This report was verified electronically.
--- NOTE | 2017-06-16 16:56 | PD.PROCEDR ---
Procedure Note Procedure Diagnosis: Hypovolemic shock Indications: Hypovolemic shock secondary to acute blood loss anemia Consent: Obtained from family Anesthesia: see MAR Description of the Procedure: The patient was placed in the supine, mild- Trendelenburg position. The area was prepped and draped sterilely. A 19g needle was inserted under negative pressure aspiration and dark venous blood was obtained. A guidewire was inserted easily without resistance. A small incision was made using a #11 blade. Using a modified Seldinger technique, the dilator and 7F catheter were advanced over the guidewire without resistance. All ports were aspirated and flushed, and had brisk blood return. The line was secured at 17 at the skin using 2-0 silk interrupted sutures. A Biopatch and Transparent sterile dressing were applied. There were no immediate complications noted. There was minimal EBL. The patient tolerated the procedure well. Ultrasound Guidance: Ultrasound guidance was used to identify the right IJ. The vascular anatomy was normal. The vessel was cannulated under direct, real-time ultrasound visualization. After placement of the guidewire, confirmation of the guidewire in the lumen of the vessel was made using ultrasound visualization, before dilation of the tract. A Chest x-ray has been ordered. I personally performed the procedure. Eugenia Arnett MD Jun 16, 2017 16:56
--- NOTE | 2017-06-16 16:58 | PD.PROCEDR ---
Procedure Note Procedure Endotracheal Intubation Diagnosis: Hematemesis Indications: Hematemesis Consent: Obtained from family Anesthesia: see MAR Description of the Procedure: The patient was positioned in the sniffing position. Pre-oxygenation was performed using a BVM 100% ambu. Anesthesia was induced via rapid sequence with cricoid pressure. A Glidescope 3 was used for laryngoscopy and a Grade 1 view was obtained. A 7.5 cuffed endotracheal tube was inserted atraumatically through the vocal cords. Confirmation of correct endotracheal tube placement was made by equal and bilateral breath sounds and colorimetric CO2 detection. The endotracheal tube was secured at 23 cm at the teeth. There were no immediate complications noted. The patient remained hemodynamically stable throughout the procedure. A chest x-ray has been ordered. I personally performed the procedure. Eugenia Arnett MD Jun 16, 2017 16:58
--- NOTE | 2017-06-16 17:32 | HHI.HP ---
HPI Service Critical Care Medicine Primary Care Physician Estrella Mauricio M.D. Admission Diagnosis syncope; poss aspiration pneumonitis; weakness Diagnosis: (1) Syncopal episodes (2) Pneumonia, aspiration (3) GERD (gastroesophageal reflux disease) (4) CKD (chronic kidney disease) stage 4, GFR 15-29 ml/min (5) Anemia (6) Hypertension (7) Shingles Travel History International Travel<30 Days: No Contact w/Intl Traveler <30 Da: No Traveled to Known Affected Are: No History of Present Illness This is 87-year-old female that presented to the ED on 06/12/17 for evaluation of syncopal episode. According to the family patient has history of hypertension and dyslipidemia. On 06/07/17 he was diagnosed with shingles affecting the right trunk and chest wall. Patient was seen by her primary care provider and started on gabapentin and acyclovir. Family has noted since starting the new medications she has been a little confused and off balance. Patient reportedly had a fall the bathroom on 06/11/17, and several recurrent falls. On 06/11/17, the patient did contuse her left shoulder and it is suspected that she hit her head. On 06/12/17 the patient was found to be unresponsive sitting upright in her chair. Daughter states that she had some guttural respirations and then vomited. The daughter tried to keep her from aspirating. There was no trauma or fall associated with the syncopal episode which was seconds in duration. Daughter does not believe she saw any seizure activity. No witnessed incontinence. No prior history of seizure. EMS was contacted and upon their arrival patient refused transportation by EMS. Patient is brought in by private vehicle. Patient's had no recent febrile illness. No shaking chills. No previous cough congestion shortness of breath chest pain abdominal pain nausea vomiting diarrhea dysuria or new joint pain or swelling. Since the episode of vomiting patient has had increasing congested cough. No reported witnessed coffee-ground emesis or hematemesis on initial evaluation. Since her admission the patient was noted to have hematemesis, gastroenterology was consulted has been following. Early this a.m. the patient was noted to have one episode of hematemesis of approximately 300 cc, PPI was increased. A discussion with the family by Dr. Marques, the patient did not want any endoscopic procedures at that time. Midday the patient was noted to have subsequent bouts of hematemesis with a significant drop in hemoglobin to 7.0 and hypotension with systolic blood pressure in the 60s70s. The patient has a medical history significant for grade D esophagitis. Critical care medicine was consulted for management .The patient was transfused 2 units of blood continued to have hypotensive episodes, norepinephrine was instituted and the patient was emergently transferred to [facility]. Discussion with the family by Dr. Marques, and I, the family has decided for endoscopic procedure. The patient was intubated for airway protection was noted blood around hypopharynx and epiglottis with confirmation of recent aspiration. . History PFSH Past Medical History Narrative Medical Arthritis hypertension dyslipidemia stage IV kidney disease renal artery stent pulmonary edema partial colectomy colonic polyp polypectomy shingles no tobacco use; nursing notes reviewed Arthritis: Yes Autoimmune Disease: No Blood Disorders: No Heart Rhythm Problems: No Cancer: No Cardiovascular Problems: Yes High Cholesterol: Yes Chest Pain: No Congestive Heart Failure: No Cerebrovascular Accident: No Endocrine: No Gastrointestinal Disorders: Yes (POLYP) Gout: Yes Genitourinary: No Headaches: Yes Hypertension: Yes Immune Disorder: No Medical other: Yes (STAGE 4 KIDNEY DISEASE) Musculoskeletal: Yes Neurologic: No Psychiatric: No Reproductive: No Respiratory: No Myocardial Infarction: No Seizures: No Tetanus Vaccination: Unknown Influenza Vaccination: Yes ?: Not Menopausal: Yes Past Surgical History Abdominal Surgery: Yes (APPY, COLON RESECTION) AICD: No Appendectomy: Yes Gynecologic Surgery: Yes (TAHBSO) Hysterectomy: Yes Joint Replacement: Yes (UMANG. KNEES) Oral Surgery: Yes (T & A) Pacemaker: No Tonsillectomy: Yes Other Surgery: Yes (STENTS) Social History Alcohol Use: No Tobacco Use: No Substance Use: No Allergies-Medications Allergies-Medications (Allergen,Severity, Reaction): Coded Allergies: penicillin G (Unverified Allergy, Mild, Rash, 06/12/17) Reported Meds & Prescriptions Reported Meds & Active Scripts Active Reported Metoprolol Tartrate 25 Mg Tab 25 Mg PO BID Losartan (Losartan Potassium) 100 Mg Tab 100 Mg PO DAILY Amlodipine (Amlodipine Besylate) 2.5 Mg Tab 2.5 Mg PO DAILY Hydralazine (Hydralazine HCl) 100 Mg Tab 100 Mg PO BID Take with meals Aspirin 81 Mg Chew 81 Mg CHEW DAILY Gabapentin 300 Mg Cap 300 Mg PO HS Acyclovir 800 Mg Tab 800 Mg PO BID Simvastatin 5 Mg Tab 5 Mg PO DAILY Narrative Medication Hydralazine 50 mg 3 times a day amlodipine 2.5 mg daily restart and 100 mg daily metoprolol 25 mg twice a day aspirin 81 mg daily simvastatin daily acyclovir 40 mg twice a day gabapentin 300 mg at bedtime ROS Review of Systems Except as stated in HPI: all other systems reviewed are Neg General / Constitutional: No: Fever, Chills Eyes: No: Visual changes HENT: Positive: Lightheadedness, Congestion, No: Headaches, Vertigo Cardiovascular: Positive: Syncope, No: Chest Pain or Discomfort, Diaphoresis Respiratory: Positive: Cough, Shortness of Breath (mild), Wheezing Gastrointestinal: Positive: Nausea, Vomiting, No: Diarrhea, Abdominal Pain Genitourinary: No: Dysuria, Decreased Urinary Output Musculoskeletal: No: Pain Skin: Positive Rash (shingles) Neurologic: Positive: Weakness, Syncope, Change in Mentation (mild confusion per family), No: Dizziness, Focal Abnormalities, Coordination Problem, Headache Psychiatric: No: Anxiety Endocrine: Positive: Cold Intolerance Hematologic/Lymphatic: No: Easy Bruisin Past Family Social History Allergies: Coded Allergies: penicillin G (Unverified Allergy, Mild, Rash, 06/12/17) Family History Unable to obtain due to patient's clinical condition Physical Exam Vital Signs Vital Signs Date Time Temp Pulse Resp B/P (MAP) Pulse Ox O2 Delivery O2 Flow Rate FiO2 06/16/17 16:14 99 50 06/16/17 14:20 102 23 100 06/16/17 14:16 98 25 113/55 (74) 100 06/16/17 14:05 100 17 100 06/16/17 14:01 100 21 91/44 (60) 100 06/16/17 13:50 104 25 100 06/16/17 13:46 102 21 109/50 (69) 100 06/16/17 13:36 108 33 113/69 (84) 100 06/16/17 13:35 108 34 100 06/16/17 13:31 114 40 154/78 (103) 100 06/16/17 13:16 102 22 129/53 (78) 100 06/16/17 13:11 97.9 101 26 128/65 100 06/16/17 13:01 100 32 128/65 (86) 100 06/16/17 12:46 100 37 116/77 (90) 100 06/16/17 12:46 100 37 100 06/16/17 12:31 98 27 75/37 (50) 99 06/16/17 12:30 102 75/37 06/16/17 12:26 94 27 56/39 (45) 100 06/16/17 12:22 94 26 59/37 (44) 100 06/16/17 12:16 100 22 82/45 (57) 100 06/16/17 12:10 100 24 97/51 (66) 100 06/16/17 12:03 100 23 110/67 100 06/16/17 12:01 98 24 110/67 (81) 100 06/16/17 12:01 98 24 100 06/16/17 12:00 98 27 100 06/16/17 11:58 98 26 117/49 (71) 100 06/16/17 11:52 96 30 66/44 (51) 100 06/16/17 11:50 96 26 66/44 98 06/16/17 11:45 102 29 51/27 (35) 100 06/16/17 11:41 104 36 101/53 (69) 100 06/16/17 11:41 97.8 103 35 101/53 100 06/16/17 11:31 98.3 100 29 100/50 97 06/16/17 11:30 98 37 101/50 (67) 97 06/16/17 11:21 98.2 104 28 49/27 98 06/16/17 11:20 104 33 49/27 (34) 100 06/16/17 11:16 98.2 100 28 49/27 100 06/16/17 11:15 108 27 59/40 (46) 99 06/16/17 11:08 108 24 72/40 (51) 100 06/16/17 11:00 112 25 67/46 (53) 100 06/16/17 10:45 114 23 70/41 (51) 100 06/16/17 10:37 114 36 70/41 (51) 100 06/16/17 10:30 108 26 61/44 (50) 100 06/16/17 10:24 106 24 78/41 (53) 06/16/17 10:15 100 22 77/39 (52) 06/16/17 10:03 98 Nasal Cannula 2.00 06/16/17 10:00 98.2 96 23 87/44 (58) 06/16/17 09:45 100 Nasal Cannula 2.00 06/16/17 09:45 102/51 (68) 06/16/17 09:11 97.6 91 15 123/72 (89) 98 06/16/17 04:00 98.4 107 20 106/64 (78) 97 06/15/17 21:32 97 Nasal Cannula 1.50 06/15/17 19:52 98.6 84 18 124/62 (82) 100 06/15/17 19:00 100 Nasal Cannula 2.00 Physical Exam GENERAL: Elderly petite female in moderate distress with severe nausea and vomiting. SKIN: Warm and dry. HEAD: Atraumatic. Normocephalic. EYES: Pupils equal and round. No scleral icterus. No injection or drainage. ENT: No nasal bleeding or discharge. Mucous membranes pink and moist. NECK: Trachea midline. No JVD. CARDIOVASCULAR: Tachycardic rate, regular rhythm. RESPIRATORY: No accessory muscle use. Clear to auscultation. Breath sounds equal bilaterally. GASTROINTESTINAL: Abdomen soft, non-tender, nondistended. No guarding. MUSCULOSKELETAL: Extremities without clubbing, cyanosis, or edema. No obvious deformities. Patient has history of shingles right chest no open lesions noted at this time NEUROLOGICAL: GCS 15 Awake and alert. RASS 0. No gross focal/sensory deficits. Follows commands in all 4 extremities. Laboratory Laboratory Tests Test 06/16/17 07:20 06/16/17 15:35 White Blood Count 8.2 9.3 Red Blood Count 2.29 3.22 Hemoglobin 7.0 9.4 Hematocrit 21.1 27.5 Mean Corpuscular Volume 89.8 85.5 Mean Corpuscular Hemoglobin 30.5 29.1 Mean Corpuscular Hemoglobin Concent 34.0 34.0 Red Cell Distribution Width 13.8 14.9 Platelet Count 120 103 Mean Platelet Volume 8.0 8.0 Neutrophils (%) (Auto) 83.0 Lymphocytes (%) (Auto) 8.6 Monocytes (%) (Auto) 7.1 Eosinophils (%) (Auto) 1.0 Basophils (%) (Auto) 0.3 Neutrophils # (Auto) 6.8 Lymphocytes # (Auto) 0.7 Monocytes # (Auto) 0.6 Eosinophils # (Auto) 0.1 Basophils # (Auto) 0.0 CBC Comment AUTO DIFF Differential Comment AUTO DIFF CONFIRMED Prothrombin Time 12.0 Prothromb Time International Ratio 1.1 Activated Partial Thromboplast Time 51.0 Blood Urea Nitrogen 70 Creatinine 2.58 Random Glucose 129 Total Protein 4.1 Calcium Level 7.3 Sodium Level 138 Potassium Level 5.4 Chloride Level 110 Carbon Dioxide Level 16.7 Anion Gap 11 Estimat Glomerular Filtration Rate 18 Lactic Acid Level 1.5 Protein Corrected Calcium 9.1 Date/Time Source Procedure Growth Status 06/12/17 20:00 Blood Peripheral Aerobic Blood Culture - Final Micrococcus Species Resulted 06/12/17 20:00 Blood Peripheral Anaerobic Blood Culture - Preliminary NO GROWTH IN 4 DAYS Resulted Result Diagram: 06/16/17 1535 06/16/17 1535 Imaging Last Impressions Neck Magnetic Resonance Angiography 06/15/17 0000 Signed Impressions: Service Date/Time: Thursday, June 15, 2017 11:41 - CONCLUSION: Negative for hemodynamically significant stenosis. Charly Maldonado MD FACR Carotid Artery Ultrasound 06/14/17 0000 Signed Impressions: Service Date/Time: May 10:15 - CONCLUSION: Elevated peak systolic velocity of the proximal left internal carotid artery indicating possible high-grade stenosis. Recommend CTA carotids for further evaluation. Elevated right external carotid peak systolic velocity also noted. Jim Marrero MD Chest X-Ray 06/13/17 0000 Signed Impressions: Service Date/Time: Tuesday, June 13, 2017 12:50 - CONCLUSION: 1. Bibasilar parenchymal change worse on the right. This could be an early inflammatory process. 2. PA and lateral chest is suggested to follow. Charly Maldonado MD FACR Head CT 06/12/17 1913 Signed Impressions: Service Date/Time: Monday, June 12, 2017 19:45 - CONCLUSION: Negative noncontrast head CT. Ebenezer Bejarano MD Septic Shock Reassessment Heart: Other (sinus tachycardia) Lungs: Clear Skin: Warm Peripheral Pulses: Bounding Right Radial Bounding Left Radial Caprini VTE Risk Assessment Caprini VTE Risk Assessment: No/Low Risk (score <= 1) VTE Pharm Contraindication: Hemorrhage Caprini Risk Assessment Model Point Value = 1 Point Value = 2 Point Value = 3 Point Value = 5 Age 41-60 Minor surgery BMI > 25 kg/m2 Swollen legs Varicose veins or History of unexplained or recurrent spontaneous Oral contraceptives or hormone replacement Sepsis (< 1 month) Serious lung disease, including pneumonia (< 1 month) Abnormal pulmonary function Acute myocardial infarction Congestive heart failure (< 1 month) History of inflammatory bowel disease Medical patient at bed rest Age 61-74 Arthroscopic surgery Major open surgery (> 45 min) Laparoscopic surgery (> 45 min) Malignancy Confined to bed (> 72 hours) Immobilizing plaster cast Central venous access Age >= 75 History of VTE Family history of VTE Factor V Leiden Prothrombin [id number] Lupus anticoagulant Anticardiolipin antibodies Elevated serum homocysteine Heparin-induced thrombocytopenia Other congenital or acquired thrombophilia Stroke (< 1 month) Elective arthroplasty Hip, pelvis, or leg fracture Acute spinal cord injury (< 1 month) Prophylaxis Regimen Total Risk Factor Score Risk Level Prophylaxis Regimen 0-1 Low Early ambulation 2 Moderate Order ONE of the following: *Sequential Compression Device (SCD) *Heparin 5000 units SQ BID 3-4 Higher Order ONE of the following medications: *Heparin 5000 units SQ TID *Enoxaparin/Lovenox 40 mg SQ daily (WT < 150 kg, CrCl > 30 mL/min) *Enoxaparin/Lovenox 30 mg SQ daily (WT < 150 kg, CrCl > 10-29 mL/min) *Enoxaparin/Lovenox 30 mg SQ BID (WT < 150 kg, CrCl > 30 mL/min) AND/OR *Sequential Compression Device (SCD) 5 or more Highest Order ONE of the following medications: *Heparin 5000 units SQ TID (Preferred with Epidurals) *Enoxaparin/Lovenox 40 mg SQ daily (WT < 150 kg, CrCl > 30 mL/min) *Enoxaparin/Lovenox 30 mg SQ daily (WT < 150 kg, CrCl > 10-29 mL/min) *Enoxaparin/Lovenox 30 mg SQ BID (WT < 150 kg, CrCl > 30 mL/min) AND *Sequential Compression Device (SCD) Assessment and Plan Assessment and Plan This is a 87-year-old female with grade D esophagitis progressive hematemesis, subsequent episodes on quantified at approximately 700 cc +, with subsequent hypovolemic shock requiring blood transfusions and vasopressor support. Discussion with the family aggressive measures at this time to be instituted. Prognosis is guarded at this time. Assessment Hypovolemic shock secondary to acute blood loss anemia Grade D esophagitis Aspiration H/O Hypertension Hiatal hernia Pneumonia Stage IV kidney disease Shingles/herpes right chest Plan by systems: Neurologic: Propofol for ventilator synchrony Neurochecks per ICU protocol Respiratory: Patient intubated for airway protection. 7.5 at 23 cm at the lip Ventilator bundle Bronchodilators every 6 hours scheduled and every 2 hours when necessary CPAP trials as clinically indicated post upper endoscopy Cardiovascular: Continue IV fluids 84 cc/an hour Currently on norepinephrine, maintain MAP of 65mmHg Hold patient's antihypertensive medications metoprolol, hydralazine, and Norvasc Continue atorvastatin Discontinue ASA Renal: Insert Adrian -- Strict I/Os FEN/GI: Monitor BMP Elevated creatinine, but trending down 2.7->2.58 Zofran for nausea Discontinue Phenergan Heme/ID: Serial H&H, status post 2 units PRBCs 7.0->9.4 ID following-Dr. Jasso- currently on Azactam and Levaquin Follow-up blood urine and sputum cultures 06/12 blood culture-micrococcus Endocrine: Glucose monitoring per ICU protocol -- SSI Prophylaxis: GI Prophylaxis Protonix DVT Prophylaxis -- SCDs Of pharmacological DVT prophylaxis in the setting of GI bleed Lines: Peripheral IVs 2. Right IJ (06/16), right radial A-line (06/16) Dispo: Admit to ICU This patient remains critically ill with one or more organ systems which are or may become a threat to life. I have spent in excess of 45 minutes discontinuously in the care and management of this patient. This time is exclusive of procedures, and includes, but is not limited to, evaluation of the patient, review of the medical record, discussions with family, consultants, nursing staff, or respiratory therapy, and documentation in the medical record. Code Status Full Discussed Condition With Discussed with patient's family at bedside, Dr. Marques and [employer] at bedside ( [place]). Problem Qualifiers (1) Pneumonia, aspiration: (2) GERD (gastroesophageal reflux disease): Qualified Codes: K21.0 - Gastro-esophageal reflux disease with esophagitis (3) Anemia: Qualified Codes: N18.4 - Chronic kidney disease, stage 4 (severe); D63.1 - Anemia in chronic kidney disease (4) Hypertension: Qualified Codes: I10 - Essential (primary) hypertension Eugenia Arnett MD Jun 16, 2017 17:32
[2017-06-16] MEDS ORDERED: GLUCAGON 1 MG/ML VIAL OTHER PRN (17:45)
[2017-06-16] MEDS ORDERED: DEXTROSE 50% IN WATER 50 ML VIAL(D50) IV PUSH PRN (17:45)
[2017-06-16 17:51] LABS: BLOOD GAS BASE EXCESS -11.1 mmol/L (-2-2); BLOOD GAS CARBOXYHEMOGLOBIN 1.1 % (0-4); BLOOD GAS HCO3 14 mmol/L (22-26); BLOOD GAS O2 HGB SATURATION 97 % (90-100); BLOOD GAS PCO2 27 mmHg (38-42); BLOOD GAS PO2 221 mmHg (61-120); BLOOD GAS TOTAL HGB 9.8 G/DL (12.0-16.0); TEMP CORR TO 98.6
[2017-06-16 17:52] LABS: CRITICAL VALUE YES; DRAW SITE ART LINE; FIO2 50 %; OXYGEN DEVICE VENTILATOR; STAT NO; VENT SETTINGS AC 12/450/5+
[2017-06-16] MEDS ORDERED: SODIUM BICARBONATE 8.4% INJ 100 ML ONE (17:57)
[2017-06-16] MEDS ORDERED: SODIUM BICARBONATE 8.4% INJ 50 MEQ/50 ML SYR IV ONE (18:15)
--- NOTE | 2017-06-16 18:26 | PD.PROCEDR ---
GI Procedure PROCEDURE PERFORMED EGD diagnostic INDICATION FOR PROCEDURE Anemia GI bleed PROCEDURE: The procedure, risks and benefits were discussed with Ms. Gaines and informed consent was obtained. Anesthesia sedated her with Diprivan. She was placed in the left lateral decubitus position. EGD: The Pentax videoscope was introduced through the oropharynx and advanced to the second portion of the duodenum under direct visualization. Retroflexion was performed in the stomach. FINDINGS: Severe grade D esophagitis no active bleeding at this point The stomach is full of clots and old blood Most likely this is related to esophagitis SPECIMENS REMOVED: None COMPLICATIONS: None IMPRESSION: GI bleed from esophagitis most likely PLAN: Continue PPI Keep intubated Packed RBC as needed Kal Sesay MD Jun 16, 2017 18:26
[2017-06-16 19:37] LABS: BLOOD GAS BASE EXCESS -5.8 mmol/L (-2-2); BLOOD GAS CARBOXYHEMOGLOBIN 1.2 % (0-4); BLOOD GAS HCO3 18 mmol/L (22-26); BLOOD GAS METHEMOGLOBIN 0.9 % (0-2); BLOOD GAS O2 HGB SATURATION 98 % (90-100); BLOOD GAS OXYGEN CONTENT 14.3 Vol % (12.0-20.0); BLOOD GAS PCO2 30 mmHg (38-42); BLOOD GAS PO2 260 mmHg (61-120); BLOOD GAS TOTAL HGB 9.9 G/DL (12.0-16.0); TEMP CORR TO 98.6
[2017-06-16 19:38] LABS: CRITICAL VALUE NO; FIO2 50 %; OXYGEN DEVICE VENTILATOR; VENT SETTINGS 12/450/5PEEP
[2017-06-16 19:39] LABS: DRAW SITE ART LINE; STAT NO
[2017-06-16] MEDS: CHLORHEXIDINE 0.12% (ORAL KIT) 15 ML CUP MT SCH (20:00)
[2017-06-16] MEDS ORDERED: RESP: ALBUTEROL 2.5 MG/IPRATROPIUM 0.5 MG NEB (SCH) NEB (20:00)
[2017-06-16] MEDS: DOCUSATE SODIUM 50 MG/SENNA 8.6 MG TAB PO SCH (21:00)
[2017-06-16] MEDS: INSULIN ASPART SUPPLEMENTAL SCALE SQ SCH (21:00)
[2017-06-16] MEDS: ACYCLOVIR 800 MG TAB PO SCH (21:00)
[2017-06-16] MEDS: SUCRALFATE 1 GM/10 ML CUP PO SCH (23:30)
[2017-06-16 23:46] LABS: AUTOMATED NEUTROPHIL # 11.8 TH/MM3 (1.8-7.7); BASOPHIL % 0.1 % (0.0-2.0); HEMATOCRIT 27.8 % (35.0-46.0); LYMPH % 8.4 % (9.0-44.0); LYMPHOCYTE # 1.2 TH/MM3 (1.0-4.8); MEAN CELL VOLUME 84.9 FL (80.0-100.0); MEAN CORPUSCULAR HEMOGLOBIN 29.4 PG (27.0-34.0); MEAN CORPUSCULAR HGB CONC 34.7 % (32.0-36.0); MONO % 10.7 % (0.0-8.0); NEUT % 80.8 % (16.0-70.0); PLATELET COUNT 121 TH/MM3 (150-450); RED BLOOD COUNT 3.27 MIL/MM3 (4.00-5.30); RED CELL DISTRIBUTION WIDTH 15.3 % (11.6-17.2); WHITE BLOOD COUNT 14.6 TH/MM3 (4.0-11.0)
[2017-06-16 23:49] LABS: HEMO FLAGS AUTO DIFF
[2017-06-17] VITALS (18 sets, daily range): BP systolic 102–147; BP diastolic 44–64; PULSE 78–122; RESP 12–20; TEMP 97.8–98.4; O2SAT 100
[2017-06-17 00:27] LABS: METAMYELOCYTES 2 % (0-1); NEUTROPHIL # MANUAL DIFF 13.6 TH/MM3 (1.8-7.7); POLYS (SEG NEUTROPHILS) 91 % (16-70); WBC DIFF SAMPLE 100
[2017-06-17 00:28] LABS: PLATELET ESTIMATE SMEAR LOW (NORMAL); PLATELET MORPHOLOGY NORMAL (NORMAL); SCAN/DIFF FINAL DIFF MANUAL
[2017-06-17] MEDS: SODIUM CHLOR 0.9% 1000 ML INJ 1,000 ML IV SCH (02:00)
[2017-06-17] MEDS: AZTREONAM INJ 500 MG in SODIUM CHLORIDE 0.9% INJ 100 ML IV SCH ×3 (03:00→16:49)
[2017-06-17] MEDS ORDERED: CHLORHEXIDINE GLUCONATE 2 % 1 PACK (2 CLOTHS)(taper/protocol) TOPICAL SCH (04:00)
[2017-06-17] MEDS: CHLORHEXIDINE GLUCONATE 2 % 1 PACK (2 CLOTHS) TOP SCH (04:00)
[2017-06-17] MEDS: SODIUM CHLORIDE 0.9% FLUSH 10 ML FLUSH IV FLUSH SCH ×3 (04:14→21:00)
[2017-06-17] MEDS: LEVOFLOXACIN 250 MG PREMIX INJ 50 ML IV SCH (04:19)
[2017-06-17] MEDS: NOREPINEPHRINE 4 MG/D5W 250 ML IV PRN ×2 (04:56→19:09)
--- NOTE | 2017-06-17 05:44 | RADRPT ---
EXAM DATE/TIME: 06/17/2017 04:01 [facility] COMPARISON: CHEST SINGLE AP, June 16, 2017, 16:24. INDICATIONS : Respiratory failure, evaluate for pneumonia MEDICAL HISTORY : Hypertension. Cardiovascular disease. SURGICAL HISTORY : Coronary artery stent. Appendectomy. Hysterectomy. ENCOUNTER: Subsequent ACUITY: 2 days PAIN SCORE: Non-responsive. LOCATION: Bilateral chest FINDINGS: A single view of the chest demonstrates endotracheal tube in good position. NG enters stomach. Right central line in superior vena cava. Mild basilar airspace disease. No pneumothorax. CONCLUSION: 1. Mild basilar airspace disease. No pneumothorax. Support apparatus in good position. Tristan Romero MD on June 17, 2017 at 5:39 Board Certified Radiologist. This report was verified electronically.
[2017-06-17 06:56] LABS: AUTOMATED NEUTROPHIL # 10.1 TH/MM3 (1.8-7.7); BASOPHIL % 0.2 % (0.0-2.0); EOSINOPHIL # 0.1 TH/MM3 (0-0.4); EOSINOPHIL % 0.4 % (0.0-4.0); HEMATOCRIT 25.3 % (35.0-46.0); LYMPH % 12.9 % (9.0-44.0); LYMPHOCYTE # 1.8 TH/MM3 (1.0-4.8); MEAN CORPUSCULAR HEMOGLOBIN 28.6 PG (27.0-34.0); MEAN CORPUSCULAR HGB CONC 34.1 % (32.0-36.0); MONO % 13.8 % (0.0-8.0); NEUT % 72.7 % (16.0-70.0); PLATELET COUNT 126 TH/MM3 (150-450); RED BLOOD COUNT 3.01 MIL/MM3 (4.00-5.30); RED CELL DISTRIBUTION WIDTH 15.3 % (11.6-17.2); WHITE BLOOD COUNT 13.9 TH/MM3 (4.0-11.0)
[2017-06-17 06:57] LABS: HEMO FLAGS AUTO DIFF
[2017-06-17] MEDS ORDERED: PANTOPRAZOLE SODIUM 40 MG VIAL IV PUSH SCH (07:00)
[2017-06-17] MEDS ORDERED: RESP: ALBUTEROL 2.5 MG/IPRATROPIUM 0.5 MG NEB (PRN) NEB (07:00)
[2017-06-17] MEDS ORDERED: SODIUM CHLORID 0.9% 500 ML INJ 500 ML IV ONE ×3 (07:00→14:30)
--- NOTE | 2017-06-17 07:06 | HHI.CCPN ---
Subjective Remarks/Hospital Course This is 87-year-old female that presented to the ED on 06/12/17 for evaluation of syncopal episode. According to the family patient has history of hypertension and dyslipidemia. On 06/07/17 he was diagnosed with shingles affecting the right trunk and chest wall. Patient was seen by her primary care provider and started on gabapentin and acyclovir. Family has noted since starting the new medications she has been a little confused and off balance. Patient reportedly had a fall the bathroom on 06/11/17, and several recurrent falls. On 06/11/17, the patient did contuse her left shoulder and it is suspected that she hit her head. On 06/12/17 the patient was found to be unresponsive sitting upright in her chair. Daughter states that she had some guttural respirations and then vomited. The daughter tried to keep her from aspirating. There was no trauma or fall associated with the syncopal episode which was seconds in duration. Daughter does not believe she saw any seizure activity. No witnessed incontinence. No prior history of seizure. EMS was contacted and upon their arrival patient refused transportation by EMS. Patient is brought in by private vehicle. Patient's had no recent febrile illness. No shaking chills. No previous cough congestion shortness of breath chest pain abdominal pain nausea vomiting diarrhea dysuria or new joint pain or swelling. Since the episode of vomiting patient has had increasing congested cough. No reported witnessed coffee-ground emesis or hematemesis on initial evaluation. Since her admission the patient was noted to have hematemesis, gastroenterology was consulted has been following. Early this a.m. the patient was noted to have one episode of hematemesis of approximately 300 cc, PPI was increased. A discussion with the family by Dr. Marques, the patient did not want any endoscopic procedures at that time. Midday the patient was noted to have subsequent bouts of hematemesis with a significant drop in hemoglobin to 7.0 and hypotension with systolic blood pressure in the 60s70s. The patient has a medical history significant for grade D esophagitis. Critical care medicine was consulted for management .The patient was transfused 2 units of blood continued to have hypotensive episodes, norepinephrine was instituted and the patient was emergently transferred to [facility]. Discussion with the family by Dr. Hemaiden, and I, the family has decided for endoscopic procedure. The patient was intubated for airway protection was noted blood around hypopharynx and epiglottis with confirmation of recent aspiration. Subjective: 06/17/17: The patient underwent EGD last evening. OGT was placed, kept on LIWS during the night. 325 cc bloody gastric output noted. The patient continues on serial H&H, last hemoglobin 9.6. Patient now having diarrhea, Hemoccult stool, C. difficile PCR pending. The patient remains intubated for airway protection, per report of the RN blood emanating from oropharynx intermittently. . Objective Vital Signs Date Time Temp Pulse Resp B/P (MAP) Pulse Ox O2 Delivery O2 Flow Rate FiO2 06/17/17 04:56 85 111/53 06/17/17 04:15 100 40 06/17/17 04:00 98.2 12 06/16/17 10:03 Nasal Cannula 2.00 Result Diagram: 06/16/17 8362 06/16/17 1530 Other Results Laboratory Tests Test 06/16/17 17:36 06/16/17 19:20 Blood Gas Puncture Site ART LINE ART LINE Blood Gas Patient Temperature 98.6 98.6 Blood Gas HCO3 14 mmol/L (22-26) 18 mmol/L (22-26) Blood Gas Base Excess -11.1 mmol/L (-2-2) -5.8 mmol/L (-2-2) Blood Gas Oxygen Saturation 97 % (90-100) 98 % (90-100) Arterial Blood pH 7.32 (7.380-7.420) 7.39 (7.380-7.420) Arterial Blood Partial Pressure CO2 27 mmHg (38-42) 30 mmHg (38-42) Arterial Blood Partial Pressure O2 221 mmHg (61-120) 260 mmHg (61-120) Arterial Blood Oxygen Content 14.0 Vol % (12.0-20.0) 14.3 Vol % (12.0-20.0) Arterial Blood Carboxyhemoglobin 1.1 % (0-4) 1.2 % (0-4) Arterial Blood Methemoglobin 1.0 % (0-2) 0.9 % (0-2) Blood Gas Hemoglobin 9.8 G/DL (12.0-16.0) 9.9 G/DL (12.0-16.0) Oxygen Delivery Device VENTILATOR VENTILATOR Blood Gas Ventilator Setting AC 12/450/5+ 12/450/5PEEP Blood Gas Inspired Oxygen 50 % 50 % Imaging Last Impressions Neck Magnetic Resonance Angiography 06/15/17 0000 Signed Impressions: Service Date/Time: Thursday, June 15, 2017 11:41 - CONCLUSION: Negative for hemodynamically significant stenosis. Charly Maldonado MD FACR Carotid Artery Ultrasound 06/14/17 0000 Signed Impressions: Service Date/Time: May 10:15 - CONCLUSION: Elevated peak systolic velocity of the proximal left internal carotid artery indicating possible high-grade stenosis. Recommend CTA carotids for further evaluation. Elevated right external carotid peak systolic velocity also noted. Jim Marrero MD Chest X-Ray 06/13/17 0000 Signed Impressions: Service Date/Time: Tuesday, June 13, 2017 12:50 - CONCLUSION: 1. Bibasilar parenchymal change worse on the right. This could be an early inflammatory process. 2. PA and lateral chest is suggested to follow. Charly Maldonado MD FACR Head CT [id number]/12/[id number] Signed Impressions: Service Date/Time: Monday, June 12, 2017 19:45 - CONCLUSION: Negative noncontrast head CT. Ebenezer Bejarano MD Objective Remarks GENERAL: Elderly petite critically ill female in intubated and sedated SKIN: Warm and dry. HEAD: Atraumatic. Normocephalic. EYES: Pupils equal and round. No scleral icterus. No injection or drainage. ENT: No nasal bleeding or discharge. Mucous membranes pink and moist. Dried blood noted around mouth NECK: Trachea midline. No JVD. CARDIOVASCULAR: Normal rate, regular rhythm. RESPIRATORY: No accessory muscle use. Clear to auscultation. Breath sounds equal bilaterally. GASTROINTESTINAL: Abdomen soft, non-tender, nondistended. No guarding. Normoactive bowel sounds. OGT continuous heme positive gastric output, noted MUSCULOSKELETAL: Extremities without clubbing, cyanosis, or edema. No obvious deformities. Patient has history of shingles right chest no open lesions noted at this time NEUROLOGICAL: GCS 11T, RASS -2. No gross focal/sensory deficits. Follows commands in all 4 extremities. Propofol infusion for ventilator synchrony Procedures 06/16-EGD Urinary Catheter: Yes Assessment to: Continue Adrian insert reason: Measure Accurate Output Date of Insertion: Jun 16, 2017 Vascular Central Line Catheter: Yes Assessment to: Continue Line: Central Venous Catheter Side: Right Location: Internal, Jugular A/P Assessment and Plan This is a 87-year-old female with grade D esophagitis progressive hematemesis, subsequent episodes on quantified at approximately 700 cc +, with subsequent hypovolemic shock requiring blood transfusions and vasopressor support. Discussion with the family aggressive measures at this time to be instituted. Prognosis is guarded at this time. Assessment Hypovolemic shock secondary to acute blood loss anemia Grade D esophagitis Aspiration H/O Hypertension Hiatal hernia Pneumonia Stage IV kidney disease Shingles/herpes right chest Hyperglycemia of critical illness Plan by systems: Neurologic: Propofol infusion for ventilator synchrony Neurochecks per ICU protocol Respiratory: Patient intubated for airway protection. 7.5 at 23 cm at the lip Ventilator bundle Bronchodilators every 6 hours scheduled and every 2 hours when necessary CPAP trials as clinically indicated post upper endoscopy, maintain intubation for airway protection Cardiovascular: Continue IV fluids 84 cc/an hour Bolus of saline 500 cc Currently on norepinephrine, maintain MAP of 65mmHg Hold patient's antihypertensive medications metoprolol, hydralazine, and Norvasc Continue atorvastatin 06/16 Discontinue ASA Renal: Maintain Adrian -- Strict I/Os FEN/GI: Monitor BMP Elevated creatinine, but trending down 2.7->2.58 Zofran for nausea Discontinue Phenergan Patient to remain nothing by mouth-plan for PPN or TPN, follow-up recommendations of GI GI following- Dr. Marques Heme/ID: Serial H&H every 6 hours, status post 2 units PRBCs 7.0->9.4 ID following-Dr. Jasso- currently on Azactam , Levaquin, acyclovir Follow-up blood urine and sputum cultures 06/12 blood culture-micrococcus Endocrine: Glucose monitoring per ICU protocol -- SSI Prophylaxis: GI Prophylaxis Protonix DVT Prophylaxis -- SCDs Of pharmacological DVT prophylaxis in the setting of GI bleed Lines: Peripheral IVs 2. Right IJ (06/16), right radial A-line (06/16) Dispo: Discussed with MEDICAL SERVICES ASSISTANT at bedside This patient remains critically ill with one or more organ systems which are or may become a threat to life. I have spent in excess of 30 minutes discontinuously in the care and management of this patient. This time is exclusive of procedures, and includes, but is not limited to, evaluation of the patient, review of the medical record, discussions with family, consultants, nursing staff, or respiratory therapy, and documentation in the medical record. Physician Eugenia Valles MD Jun 17, 2017 07:06
[2017-06-17 07:15] LABS: BICARBONATE 21.2 MEQ/L (21.0-32.0); POTASSIUM 4.2 MEQ/L (3.5-5.1)
[2017-06-17 07:27] LABS: CALCIUM-PROTEIN CORRECTED 9.1 MG/DL (8.5-10.1)
[2017-06-17 07:35] LABS: BANDS 5 % (0-6); CORRECTED NUCLEATED RBC 1 /100 WBC (0-0); METAMYELOCYTES 2 % (0-1); NEUTROPHIL # MANUAL DIFF 11.4 TH/MM3 (1.8-7.7); OVALOCYTES 1+ (NORMAL); PLATELET ESTIMATE SMEAR LOW (NORMAL); PLATELET MORPHOLOGY NORMAL (NORMAL); POLYS (SEG NEUTROPHILS) 75 % (16-70); SCAN/DIFF FINAL DIFF MANUAL; WBC DIFF SAMPLE 100
[2017-06-17] MEDS: RESP: ALBUTEROL 2.5 MG/IPRATROPIUM 0.5 MG NEB (SCH) NEB ×3 (07:39→20:30)
[2017-06-17 07:53] LABS: BLOOD GAS BASE EXCESS -5.2 mmol/L (-2-2); BLOOD GAS CARBOXYHEMOGLOBIN 1.1 % (0-4); BLOOD GAS HCO3 18 mmol/L (22-26); BLOOD GAS METHEMOGLOBIN 0.9 % (0-2); BLOOD GAS O2 HGB SATURATION 97 % (90-100); BLOOD GAS OXYGEN CONTENT 12.2 Vol % (12.0-20.0); BLOOD GAS PCO2 27 mmHg (38-42); BLOOD GAS PO2 166 mmHg (61-120); BLOOD GAS TOTAL HGB 8.6 G/DL (12.0-16.0); CRITICAL VALUE NO; DRAW SITE ART LINE; FIO2 40 %; NUMBER OF ARTERIAL PUNCTURES 0; OXYGEN DEVICE VENTILATOR; STAT NO; TEMP CORR TO 98.6; ULNAR PULSE PRESENT; VENT SETTINGS AC/12/450/PEEP5
[2017-06-17] MEDS: INSULIN ASPART SUPPLEMENTAL SCALE SQ SCH ×4 (08:00→21:00)
[2017-06-17] MEDS: ATORVASTATIN 40 MG TAB PO SCH (08:52)
[2017-06-17] MEDS: DOCUSATE SODIUM 50 MG/SENNA 8.6 MG TAB PO SCH ×2 (08:52→21:00)
[2017-06-17] MEDS: SUCRALFATE 1 GM/10 ML CUP PO SCH ×4 (08:52→21:19)
[2017-06-17] MEDS: CHLORHEXIDINE 0.12% (ORAL KIT) 15 ML CUP MT SCH ×2 (08:53→21:20)
[2017-06-17] MEDS: ACYCLOVIR 800 MG TAB PO SCH ×2 (09:16→21:19)
--- NOTE | 2017-06-17 12:42 | HHI.GIFU ---
Subjective Remarks Pt lightly sedated on ventilator, does wake up and follow simple commands. OGT with brownish colored drainage- no aron red blood. Does not appear to have abdominal tenderness on exam. Flexiseal with melanotic stool. (Karina Castanon) Objective Vitals I&O Vital Signs Date Time Temp Pulse Resp B/P (MAP) Pulse Ox O2 Delivery O2 Flow Rate FiO2 06/17/17 12:16 100 40 06/17/17 11:00 123 49/97 06/17/17 10:00 101 06/17/17 09:03 40 06/17/17 08:00 40 06/17/17 08:00 98.4 93 20 147/64 (91) 100 06/17/17 08:00 40 06/17/17 08:00 93 06/17/17 07:57 100 40 06/17/17 06:00 81 06/17/17 04:56 85 111/53 06/17/17 04:15 100 40 06/17/17 04:00 90 06/17/17 04:00 98.2 90 12 107/54 (71) 100 06/17/17 04:00 40 06/17/17 02:00 96 06/17/17 00:00 106 06/17/17 00:00 40 06/17/17 00:00 98.1 106 16 102/58 (73) 100 06/16/17 23:54 100 40 06/16/17 22:37 106 94/57 06/16/17 22:00 104 06/16/17 20:35 100 40 06/16/17 20:30 40 06/16/17 20:00 98.1 108 13 104/60 (75) 100 104/60 (75) 06/16/17 20:00 104 06/16/17 20:00 50 06/16/17 17:30 87/48 06/16/17 17:00 98.6 102 22 100 98/52 (67) 06/16/17 16:14 99 50 06/16/17 16:08 50 06/16/17 16:00 98.7 112 22 147/70 (95) 100 06/16/17 14:20 102 23 100 06/16/17 14:16 98 25 113/55 (74) 100 06/16/17 14:05 100 17 100 06/16/17 14:01 100 21 91/44 (60) 100 06/16/17 13:50 104 25 100 06/16/17 13:46 102 21 109/50 (69) 100 06/16/17 13:36 108 33 113/69 (84) 100 06/16/17 13:35 108 34 100 06/16/17 13:31 114 40 154/78 (103) 100 06/16/17 13:16 102 22 129/53 (78) 100 06/16/17 13:11 97.9 101 26 128/65 100 06/16/17 13:01 100 32 128/65 (86) 100 06/16/17 12:46 100 37 116/77 (90) 100 06/16/17 12:46 100 37 100 06/16/17 12:31 98 27 75/37 (50) 99 06/16/17 12:30 102 75/37 I/O 06/16/17 06/16/17 06/16/17 06/17/17 06/17/17 06/17/17 07:00 15:00 23:00 07:00 15:00 23:00 Intake Total 220 ml 1490 ml 604 ml 2185 ml Output Total 1500 ml 125 ml 625 ml Balance 220 ml -10 ml 479 ml -625 ml 2185 ml Intake Oral 120 ml IV Total 100 ml 1000 ml 604 ml 2185 ml Packed Cells 400 ml Blood Product IV Normal Saline Flush 90 ml Output Urine Total 125 ml 200 ml Stool Total 100 ml Gastric Drainage Total 325 ml Emesis 1500 ml # Voids 3 2 Laboratory Laboratory Tests Test 06/16/17 15:35 06/16/17 17:36 06/16/17 19:20 06/16/17 23:25 White Blood Count 9.3 14.6 Red Blood Count 3.22 3.27 Hemoglobin 9.4 9.6 Hematocrit 27.5 27.8 Mean Corpuscular Volume 85.5 84.9 Mean Corpuscular Hemoglobin 29.1 29.4 Mean Corpuscular Hemoglobin Concent 34.0 34.7 Red Cell Distribution Width 14.9 15.3 Platelet Count 103 121 Mean Platelet Volume 8.0 8.5 Prothrombin Time 12.0 Prothromb Time International Ratio 1.1 Activated Partial Thromboplast Time 51.0 Blood Urea Nitrogen 70 Creatinine 2.58 Random Glucose 129 Total Protein 4.1 Calcium Level 7.3 Sodium Level 138 Potassium Level 5.4 Chloride Level 110 Carbon Dioxide Level 16.7 Anion Gap 11 Estimat Glomerular Filtration Rate 18 Lactic Acid Level 1.5 Protein Corrected Calcium 9.1 Blood Gas Puncture Site ART LINE ART LINE Blood Gas Patient Temperature 98.6 98.6 Blood Gas HCO3 14 18 Blood Gas Base Excess -11.1 -5.8 Blood Gas Oxygen Saturation 97 98 Arterial Blood pH 7.32 7.39 Arterial Blood Partial Pressure CO2 27 30 Arterial Blood Partial Pressure O2 221 260 Arterial Blood Oxygen Content 14.0 14.3 Arterial Blood Carboxyhemoglobin 1.1 1.2 Arterial Blood Methemoglobin 1.0 0.9 Blood Gas Hemoglobin 9.8 9.9 Oxygen Delivery Device VENTILATOR VENTILATOR Blood Gas Ventilator Setting AC 12/450/5+ 12/450/5PEEP Blood Gas Inspired Oxygen 50 50 Neutrophils (%) (Auto) 80.8 Lymphocytes (%) (Auto) 8.4 Monocytes (%) (Auto) 10.7 Eosinophils (%) (Auto) 0.0 Basophils (%) (Auto) 0.1 Neutrophils # (Auto) 11.8 Lymphocytes # (Auto) 1.2 Monocytes # (Auto) 1.6 Eosinophils # (Auto) 0.0 Basophils # (Auto) 0.0 CBC Comment AUTO DIFF Differential Total Cells Counted 100 Neutrophils % (Manual) 91 Lymphocytes % 3 Monocytes % 4 Neutrophils # (Manual) 13.6 Metamyelocytes 2 Differential Comment FINAL DIFF MANUAL Platelet Estimate LOW Platelet Morphology Comment NORMAL Red Cell Morphology Comment NORMAL Test 06/17/17 06:35 06/17/17 07:38 White Blood Count 13.9 Red Blood Count 3.01 Hemoglobin 8.6 Hematocrit 25.3 Mean Corpuscular Volume 84.0 Mean Corpuscular Hemoglobin 28.6 Mean Corpuscular Hemoglobin Concent 34.1 Red Cell Distribution Width 15.3 Platelet Count 126 Mean Platelet Volume 8.5 Neutrophils (%) (Auto) 72.7 Lymphocytes (%) (Auto) 12.9 Monocytes (%) (Auto) 13.8 Eosinophils (%) (Auto) 0.4 Basophils (%) (Auto) 0.2 Neutrophils # (Auto) 10.1 Lymphocytes # (Auto) 1.8 Monocytes # (Auto) 1.9 Eosinophils # (Auto) 0.1 Basophils # (Auto) 0.0 CBC Comment AUTO DIFF Differential Total Cells Counted 100 Neutrophils % (Manual) 75 Band Neutrophils % 5 Lymphocytes % 7 Monocytes % 11 Neutrophils # (Manual) 11.4 Metamyelocytes 2 Nucleated Red Blood Cells 1 Differential Comment FINAL DIFF MANUAL Platelet Estimate LOW Platelet Morphology Comment NORMAL Ovalocytes 1+ Blood Urea Nitrogen 86 Creatinine 2.76 Random Glucose 150 Total Protein 4.0 Calcium Level 7.3 Phosphorus Level 3.7 Magnesium Level 2.0 Sodium Level 141 Potassium Level 4.2 Chloride Level 110 Carbon Dioxide Level 21.2 Anion Gap 10 Estimat Glomerular Filtration Rate 16 Protein Corrected Calcium 9.1 Blood Gas Puncture Site ART LINE Blood Gas Patient Temperature 98.6 Blood Gas HCO3 18 Blood Gas Base Excess -5.2 Blood Gas Oxygen Saturation 97 Arterial Blood pH 7.45 Arterial Blood Partial Pressure CO2 27 Arterial Blood Partial Pressure O2 166 Arterial Blood Oxygen Content 12.2 Arterial Blood Carboxyhemoglobin 1.1 Arterial Blood Methemoglobin 0.9 Blood Gas Hemoglobin 8.6 Oxygen Delivery Device VENTILATOR Blood Gas Ventilator Setting AC/12/450/PEEP5 Blood Gas Inspired Oxygen 40 Date/Time Source Procedure Growth Status 06/12/17 20:00 Blood Peripheral Aerobic Blood Culture - Final Micrococcus Species Complete 06/12/17 20:00 Blood Peripheral Anaerobic Blood Culture - Final NO GROWTH IN 5 DAYS Complete Imaging Last Impressions Chest X-Ray 06/16/17 0000 Signed Impressions: Service Date/Time: Friday, June 16, 2017 16:24 - CONCLUSION: 1. Right IJ catheter in good position without evidence of pneumothorax. 2. The endotracheal tube tip is close to the samreen and needs to be withdrawn at least 1 cm. 3. Left lower lung consolidation and patchy infiltrates in the right lower lung. Minesh Rojas MD Neck Magnetic Resonance Angiography 06/15/17 0000 Signed Impressions: Service Date/Time: Thursday, June 15, 2017 11:41 - CONCLUSION: Negative for hemodynamically significant stenosis. Charly Maldonado MD FACR Carotid Artery Ultrasound 06/14/17 0000 Signed Impressions: Service Date/Time: May 10:15 - CONCLUSION: Elevated peak systolic velocity of the proximal left internal carotid artery indicating possible high-grade stenosis. Recommend CTA carotids for further evaluation. Elevated right external carotid peak systolic velocity also noted. Jim Marrero MD Head CT 06/12/17 191 Signed Impressions: Service Date/Time: Monday, June 12, 2017 19:45 - CONCLUSION: Negative noncontrast head CT. Ebenezer Bejarano MD Physical Exam HEENT: Normocephalic; atraumatic CHEST: Resp even/unlabored, OETT to vent. CARDIAC: ST, 104 ABDOMEN: Soft, nondistended, nontender; no hepatosplenomegaly; bowel sounds are present in all four quadrants. OGT with clear brownish colored gastric secretions to LIWS, flexiseal with melanotic stool EXTREMITIES: BUE mildly edematous, ecchymotic ARTIST'S MODEL: Lightly sedated (Karina Castanon) Assessment and Plan Plan ASSESSMENT: - Upper GI Bleeding. S/P EGD (06/15/17)---> 1. Severe grade D esophagitis and then lower half of the esophagus biopsy was done, most likely this is the reason for the nausea vomiting and anemia. 2. Severe duodenitis and gastritis biopsy from the antrum to rule out H. pylori. 3. Normal endoscopy otherwise. 4. Multiple polyps in the body of the stomach one of them removed by snare. 5. Retroflexed views revealed a few gastric polyps in the body of the stomach. She then had vomiting dark blood on 06/16/17. Rpt. EGD (06/16)---> GI bleed from esophagitis most likely. OGT to LIWS- clear brownish gastric secretions. Melanotic stool in flexiseal. S/P 2 units PRBC, HH 8.6/25.3. Protonix IV 40mg IV daily. - Severe Gr. D Esophagitis, gastritis, severe duodenitis, gastric polyps. Pathology pending. PPI - Anemia, acute blood loss. S/P 2 units PRBC, HH 8.6/25.3. Protonix - N/V. EGD as above. 325cc out from OGT last night. 150cc today. - Leukocytosis, bacteremia. Cx Micrococcus species. WBC 13.9. - ARTIE, Creat 2.76. - Respiratory failure, PNA. PLAN: - NPO for now - NGT to LIWS - Await pathology - Protonix, increase to BID dosing - Monitor HH - Transfuse as necessary - Supportive care - Further recommendations to follow based on results of above - Pt seen and examined by Dr. Hemaidan and myself and this note is written on his behalf (Karina Castanon) Plan Patient was seen and examined, agree with above-noted, more awake today, we will monitor hemoglobin if it stable we will extubate patient start clear liquid diet (Kal Sesay MD) Karina Castanon Jun 17, 2017 12:42 Kal Sesay MD Jun 17, 2017 18:03
[2017-06-17 15:09] LABS: HEMATOCRIT 22.7 % (35.0-46.0); REVIEW FLAG FINAL
[2017-06-17] MEDS: LACTATED RINGER'S 1000 ML INJ 1,000 ML IV SCH (16:30)
[2017-06-17] MEDS ORDERED: AMIODARONE INJ 150 MG in DEXTROSE 5% IN WATER 100ML INJ 100 ML IV ONE ×2 (17:17)
[2017-06-17] MEDS: AMIODARONE INJ 450 MG in DEXTROSE 5% IN WATE(EXCEL) INJ 241 ML IV SCH ×2 (17:57)
[2017-06-17] MEDS: PROPOFOL 1000 MG/100 ML INJ 100 ML IV PRN (21:20)
[2017-06-17] MEDS: PANTOPRAZOLE SODIUM 40 MG VIAL IV PUSH SCH (21:20)
[2017-06-17 21:48] LABS: HEMATOCRIT 22.3 % (35.0-46.0); REVIEW FLAG FINAL
[2017-06-18] VITALS (19 sets, daily range): BP systolic 108–163; BP diastolic 50–84; PULSE 73–97; RESP 13–18; TEMP 97.8–98.6; O2SAT 98–100
[2017-06-18] MEDS: NOREPINEPHRINE 4 MG/D5W 250 ML IV PRN ×2 (00:03→05:19)
[2017-06-18] MEDS: AZTREONAM INJ 500 MG in SODIUM CHLORIDE 0.9% INJ 100 ML IV SCH ×3 (00:03→16:36)
[2017-06-18 01:16] LABS: HEMATOCRIT 21.7 % (35.0-46.0); REVIEW FLAG FINAL
[2017-06-18] MEDS: AMIODARONE INJ 450 MG in DEXTROSE 5% IN WATE(EXCEL) INJ 241 ML IV SCH ×6 (02:44→23:50)
[2017-06-18] MEDS: RESP: ALBUTEROL 2.5 MG/IPRATROPIUM 0.5 MG NEB (SCH) NEB ×4 (03:06→20:18)
[2017-06-18] MEDS: CHLORHEXIDINE GLUCONATE 2 % 1 PACK (2 CLOTHS) TOP SCH (04:00)
[2017-06-18] MEDS: LACTATED RINGER'S 1000 ML INJ 1,000 ML IV SCH (05:20)
[2017-06-18 05:56] LABS: BLOOD GAS BASE EXCESS -8.6 mmol/L (-2-2); BLOOD GAS CARBOXYHEMOGLOBIN 0.6 % (0-4); BLOOD GAS HCO3 16 mmol/L (22-26); BLOOD GAS METHEMOGLOBIN 0.8 % (0-2); BLOOD GAS O2 HGB SATURATION 98 % (90-100); BLOOD GAS OXYGEN CONTENT 13.7 Vol % (12.0-20.0); BLOOD GAS PCO2 28 mmHg (38-42); BLOOD GAS PO2 179 mmHG (61-120); BLOOD GAS TOTAL HGB 9.7 G/DL (12.0-16.0); TEMP CORR TO 98.6
[2017-06-18 05:57] LABS: CRITICAL VALUE YES; DRAW SITE ART LINE; FIO2 40 %; OXYGEN DEVICE VENTILATOR; STAT NO; VENT SETTINGS 12/450/IT1.0/5PEEP
--- NOTE | 2017-06-18 06:11 | RADRPT ---
EXAM DATE/TIME: 06/18/2017 04:45 [facility] COMPARISON: CHEST SINGLE AP, June 17, 2017, 4:01. INDICATIONS : Shortness of breath. MEDICAL HISTORY : Hypertension. Cardiovascular disease. SURGICAL HISTORY : Coronary artery stent. Appendectomy. Hysterectomy. ENCOUNTER: Subsequent ACUITY: 4 - 6 days PAIN SCORE: 0/10 LOCATION: Bilateral chest FINDINGS: Mild bibasilar consolidation and small pleural effusions are present, left side slightly improved and right side not significantly changed. No pneumothorax. Heart size stable, within normal limits. Endotracheal tube tip is about 3 cm above the samreen. Nasogastric tube courses into the stomach. Ther e is a right internal jugular central venous catheter with tip in the superior vena cava again noted. CONCLUSION: Bibasilar consolidation and small effusions again noted. Slight improvement on the left. Ebenezer Bejarano MD on June 18, 2017 at 6:09 Board Certified Radiologist. This report was verified electronically.
[2017-06-18 06:24] LABS: MEAN CELL VOLUME 85.8 FL (80.0-100.0); MEAN CORPUSCULAR HEMOGLOBIN 29.2 PG (27.0-34.0); PLATELET COUNT 123 TH/MM3 (150-450); RED BLOOD COUNT 2.41 MIL/MM3 (4.00-5.30); WHITE BLOOD COUNT 16.8 TH/MM3 (4.0-11.0)
[2017-06-18 06:25] LABS: REVIEW FLAG FINAL
[2017-06-18 06:27] LABS: HEMATOCRIT 20.7 % (35.0-46.0)
[2017-06-18 06:37] LABS: BICARBONATE 19.1 MEQ/L (21.0-32.0); MAGNESIUM 1.8 MG/DL (1.5-2.5); POTASSIUM 3.6 MEQ/L (3.5-5.1)
[2017-06-18 06:54] LABS: CALCIUM-PROTEIN CORRECTED 9.2 MG/DL (8.5-10.1)
[2017-06-18] MEDS: INSULIN ASPART SUPPLEMENTAL SCALE SQ SCH ×4 (08:00→21:00)
[2017-06-18] MEDS ORDERED: SODIUM BICARBONATE 8.4% INJ 50 MEQ/50 ML SYR IV PUSH ONE (08:45)
--- NOTE | 2017-06-18 08:53 | HHI.CCPN ---
Subjective Remarks/Hospital Course This is 87-year-old female that presented to the ED on 06/12/17 for evaluation of syncopal episode. According to the family patient has history of hypertension and dyslipidemia. On 06/07/17 he was diagnosed with shingles affecting the right trunk and chest wall. Patient was seen by her primary care provider and started on gabapentin and acyclovir. Family has noted since starting the new medications she has been a little confused and off balance. Patient reportedly had a fall the bathroom on 06/11/17, and several recurrent falls. On 06/11/17, the patient did contuse her left shoulder and it is suspected that she hit her head. On 06/12/17 the patient was found to be unresponsive sitting upright in her chair. Daughter states that she had some guttural respirations and then vomited. The daughter tried to keep her from aspirating. There was no trauma or fall associated with the syncopal episode which was seconds in duration. Daughter does not believe she saw any seizure activity. No witnessed incontinence. No prior history of seizure. EMS was contacted and upon their arrival patient refused transportation by EMS. Patient is brought in by private vehicle. Patient's had no recent febrile illness. No shaking chills. No previous cough congestion shortness of breath chest pain abdominal pain nausea vomiting diarrhea dysuria or new joint pain or swelling. Since the episode of vomiting patient has had increasing congested cough. No reported witnessed coffee-ground emesis or hematemesis on initial evaluation. Since her admission the patient was noted to have hematemesis, gastroenterology was consulted has been following. Early this a.m. the patient was noted to have one episode of hematemesis of approximately 300 cc, PPI was increased. A discussion with the family by Dr. Marques, the patient did not want any endoscopic procedures at that time. Midday the patient was noted to have subsequent bouts of hematemesis with a significant drop in hemoglobin to 7.0 and hypotension with systolic blood pressure in the 60s70s. The patient has a medical history significant for grade D esophagitis. Critical care medicine was consulted for management .The patient was transfused 2 units of blood continued to have hypotensive episodes, norepinephrine was instituted and the patient was emergently transferred to [facility]. Discussion with the family by Dr. Marques, and I, the family has decided for endoscopic procedure. The patient was intubated for airway protection was noted blood around hypopharynx and epiglottis with confirmation of recent aspiration. Subjective: 06/17/17: The patient underwent EGD last evening. OGT was placed, kept on LIWS during the night. 325 cc bloody gastric output noted. The patient continues on serial H&H, last hemoglobin 9.6. Patient now having diarrhea, Hemoccult stool, C. difficile PCR pending. The patient remains intubated for airway protection, per report of the RN blood emanating from oropharynx intermittently. 06/18: Last evening around 6 PM the patient went into A. fib with RVR, with patient was bolused with amiodarone followed by an amiodarone infusion that continues. Resolution of arrhythmia however the patient continues during the night to be hypotensive and continued on norepinephrine. This a.m. CPAP trials were initiated sedation turned off patient continues on amiodarone denies any pain plans for CPAP trials with extubation. Hemoglobin noted to be 7.0 today from 7.4 . Type and screen performed. Will transfuse 1 unit packed red blood cells in the setting of A. fib., To maintain hemoglobin greater than 8.0. . Objective Vital Signs Date Time Temp Pulse Resp B/P (MAP) Pulse Ox O2 Delivery O2 Flow Rate FiO2 06/18/17 07:45 100 40 06/18/17 06:00 74 06/18/17 05:19 95/46 06/18/17 04:00 97.8 18 06/16/17 10:03 Nasal Cannula 2.00 Intake and Output 06/18/17 06/18/17 06/19/17 08:00 16:00 00:00 Output Total 475 ml Balance -475 ml Result Diagram: 06/18/17 0530 06/18/17 0530 Other Results Laboratory Tests Test 06/18/17 05:40 Blood Gas Puncture Site ART LINE Blood Gas Patient Temperature 98.6 Blood Gas HCO3 16 mmol/L (22-26) Blood Gas Base Excess -8.6 mmol/L (-2-2) Blood Gas Oxygen Saturation 98 % (90-100) Arterial Blood pH 7.37 (7.380-7.420) Arterial Blood Partial Pressure CO2 28 mmHg (38-42) Arterial Blood Partial Pressure O2 179 mmHG (61-120) Arterial Blood Oxygen Content 13.7 Vol % (12.0-20.0) Arterial Blood Carboxyhemoglobin 0.6 % (0-4) Arterial Blood Methemoglobin 0.8 % (0-2) Blood Gas Hemoglobin 9.7 G/DL (12.0-16.0) Oxygen Delivery Device VENTILATOR Blood Gas Ventilator Setting 12/450/IT1.0/5PEEP Blood Gas Inspired Oxygen 40 % Imaging Last Impressions Neck Magnetic Resonance Angiography 06/15/17 0000 Signed Impressions: Service Date/Time: Thursday, June 15, 2017 11:41 - CONCLUSION: Negative for hemodynamically significant stenosis. Charly Maldonado MD FACR Carotid Artery Ultrasound 06/14/17 0000 Signed Impressions: Service Date/Time: May 10:15 - CONCLUSION: Elevated peak systolic velocity of the proximal left internal carotid artery indicating possible high-grade stenosis. Recommend CTA carotids for further evaluation. Elevated right external carotid peak systolic velocity also noted. Jim Marrero MD Chest X-Ray 06/13/17 0000 Signed Impressions: Service Date/Time: Tuesday, June 13, 2017 12:50 - CONCLUSION: 1. Bibasilar parenchymal change worse on the right. This could be an early inflammatory process. 2. PA and lateral chest is suggested to follow. Charly Maldonado MD FACR Head CT 06/12/17 191 Signed Impressions: Service Date/Time: Monday, June 12, 2017 19:45 - CONCLUSION: Negative noncontrast head CT. Ebenezer Bejarano MD Objective Remarks GENERAL: Elderly petite critically ill female in intubated minimally sedated. Responsive nodding yes and no to questions SKIN: Warm and dry. HEAD: Atraumatic. Normocephalic. EYES: Pupils equal and round. No scleral icterus. No injection or drainage. ENT: No nasal bleeding or discharge. Mucous membranes pink and moist. NECK: Trachea midline. No JVD. CARDIOVASCULAR: Normal rate, regular rhythm. RESPIRATORY: No accessory muscle use. Clear to auscultation. Breath sounds equal bilaterally. GASTROINTESTINAL: Abdomen soft, non-tender, nondistended. No guarding. Normoactive bowel sounds. OGT continuous heme positive gastric output, noted MUSCULOSKELETAL: Extremities without clubbing, cyanosis, or edema. No obvious deformities. Patient has history of shingles right chest no open lesions noted at this time NEUROLOGICAL: GCS 11T, RASS -2. No gross focal/sensory deficits. Follows commands in all 4 extremities. Propofol infusion for ventilator synchrony Procedures 06/16-EGD Date of Insertion: Jun 16, 2017 Line: Central Venous Catheter Side: Right Location: Internal, Jugular A/P Assessment and Plan This is a 87-year-old female with grade D esophagitis progressive hematemesis, subsequent episodes on quantified at approximately 700 cc +, with subsequent hypovolemic shock requiring blood transfusions and vasopressor support. Discussion with the family aggressive measures at this time to be instituted. Prognosis is guarded at this time. Assessment Hypovolemic shock secondary to acute blood loss anemia Grade D esophagitis Aspiration H/O Hypertension Hiatal hernia Pneumonia Stage IV kidney disease Shingles/herpes right chest Hyperglycemia of critical illness A. fib RVR Plan by systems: Neurologic: Propofol infusion for ventilator synchrony Daily sedation vacation Neurochecks per ICU protocol Respiratory: Patient intubated for airway protection. 7.5 at 23 cm at the lip Ventilator bundle Bronchodilators every 6 hours scheduled and every 2 hours when necessary CPAP trials as clinically indicated post upper endoscopy, maintain intubation for airway protection Obtain SBT parameters for planned extubation Cardiovascular: IV fluid LR@ KVO Maintain MAP of 65mmHg. norepinephrine discontinued 06/18 Amiodarone infusion at 0.5 mg/hour Hold patient's antihypertensive medications metoprolol, hydralazine, and Norvasc Continue atorvastatin 06/16 Discontinue ASA Renal: Maintain Adrian -- Strict I/Os FEN/GI: Monitor BMP Elevated creatinine 2.57 Zofran for nausea Discontinue Phenergan Patient to remain nothing by mouth-plan for PPN or TPN, follow-up recommendations of GI GI following- Dr. Marques Heme/ID: Serial H&H every 6 hours, status post 2 units PRBCs 7.0->9.4 Transfuse for hemoglobin less than 8.0. Planned transfusion 1 unit of PRBC today ID following-Dr. Jasso- currently on Azactam , Levaquin, acyclovir Follow-up blood urine and sputum cultures 06/12 blood culture-micrococcus Endocrine: Glucose monitoring per ICU protocol -- SSI Prophylaxis: GI Prophylaxis Protonix DVT Prophylaxis -- SCDs Of pharmacological DVT prophylaxis in the setting of GI bleed Lines: Peripheral IVs 2. Right IJ (06/16), right radial A-line (06/16) Dispo: Discussed with family , patient's son and CIGAR HEAD PERFORATOR at bedside This patient remains critically ill with one or more organ systems which are or may become a threat to life. I have spent in excess of 30 minutes discontinuously in the care and management of this patient. This time is exclusive of procedures, and includes, but is not limited to, evaluation of the patient, review of the medical record, discussions with family, consultants, nursing staff, or respiratory therapy, and documentation in the medical record. Physician Eugenia Valles MD Jun 18, 2017 08:53
[2017-06-18] MEDS: CHLORHEXIDINE 0.12% (ORAL KIT) 15 ML CUP MT SCH ×2 (09:07→20:00)
[2017-06-18] MEDS: DOCUSATE SODIUM 50 MG/SENNA 8.6 MG TAB PO SCH ×2 (09:08→21:00)
[2017-06-18] MEDS: ACYCLOVIR 800 MG TAB PO SCH ×2 (09:08→21:12)
[2017-06-18] MEDS: SODIUM CHLORIDE 0.9% FLUSH 10 ML FLUSH IV FLUSH SCH ×2 (09:08→21:13)
[2017-06-18] MEDS: SUCRALFATE 1 GM/10 ML CUP PO SCH ×4 (09:08→21:12)
[2017-06-18] MEDS: PANTOPRAZOLE SODIUM 40 MG VIAL IV PUSH SCH ×2 (09:09→21:12)
[2017-06-18] MEDS: ATORVASTATIN 40 MG TAB PO SCH (09:09)
--- NOTE | 2017-06-18 12:41 | HHI.GIFU ---
Subjective Remarks Resting in bed. Pt was extubated. No further bleeding. Denies any nausea/ vomiting, no abdominal pain. (Karina Castanon) Objective Vitals I&O Vital Signs Date Time Temp Pulse Resp B/P (MAP) Pulse Ox O2 Delivery O2 Flow Rate FiO2 06/18/17 11:05 97.9 82 14 145/73 100 06/18/17 10:50 98.4 80 16 154/73 100 06/18/17 10:21 98.6 86 121/50 100 06/18/17 10:00 84 06/18/17 09:45 Nasal Cannula 4 97 06/18/17 08:00 77 06/18/17 08:00 98.6 74 13 163/69 (100) 100 06/18/17 08:00 100 06/18/17 07:45 100 40 06/18/17 07:45 40 06/18/17 06:00 74 06/18/17 05:19 66 95/46 06/18/17 04:22 100 40 06/18/17 04:00 100 06/18/17 04:00 76 06/18/17 04:00 97.8 80 18 108/54 (72) 100 06/18/17 02:44 79 110/57 06/18/17 02:00 74 06/18/17 00:03 76 117/83 06/18/17 00:00 78 06/18/17 00:00 98.6 78 13 120/84 (96) 100 06/18/17 00:00 100 06/17/17 23:30 100 40 06/17/17 22:00 90 06/17/17 20:30 100 40 06/17/17 20:00 78 06/17/17 20:00 97.8 78 13 134/52 (79) 100 06/17/17 20:00 100 06/17/17 19:09 91 100/43 06/17/17 18:17 97 120/45 06/17/17 18:05 105 144/52 06/17/17 18:00 98 119/44 (69) 06/17/17 18:00 122 06/17/17 17:57 118 76/48 06/17/17 17:40 166 87/45 06/17/17 16:52 100 40 06/17/17 16:00 108 06/17/17 16:00 98.2 108 16 138/52 (80) 100 06/17/17 16:00 132 80/54 06/17/17 16:00 40 06/17/17 15:30 98 138/52 06/17/17 15:20 99 120/41 06/17/17 15:00 105 88/35 06/17/17 14:00 101 06/17/17 13:25 116 82/105 I/O 06/17/17 06/17/17 06/17/17 06/18/17 06/18/17 06/18/17 07:00 15:00 23:00 07:00 15:00 23:00 Intake Total 2185 ml 1203 ml 410 ml Output Total 625 ml 525 ml 475 ml Balance -625 ml 2185 ml 678 ml -475 ml 410 ml IV Total 2185 ml 1203 ml Packed Cells 400 ml Blood Product IV Normal Saline Flush 10 ml Output Urine Total 200 ml 300 ml 350 ml Stool Total 100 ml 125 ml 25 ml Gastric Drainage Total 325 ml 100 ml 100 ml # Voids 2 Laboratory Laboratory Tests Test 06/17/17 14:20 06/17/17 20:30 06/18/17 00:45 06/18/17 05:30 Hemoglobin 7.8 7.6 7.4 7.0 Hematocrit 22.7 22.3 21.7 20.7 White Blood Count 16.8 Red Blood Count 2.41 Mean Corpuscular Volume 85.8 Mean Corpuscular Hemoglobin 29.2 Mean Corpuscular Hemoglobin Concent 34.0 Red Cell Distribution Width 16.0 Platelet Count 123 Mean Platelet Volume 8.1 Blood Urea Nitrogen 72 Creatinine 2.57 Random Glucose 170 Total Protein 4.1 Calcium Level 7.4 Phosphorus Level 2.7 Magnesium Level 1.8 Sodium Level 141 Potassium Level 3.6 Chloride Level 111 Carbon Dioxide Level 19.1 Anion Gap 11 Estimat Glomerular Filtration Rate 18 Protein Corrected Calcium 9.2 Test 06/18/17 05:40 Blood Gas Puncture Site ART LINE Blood Gas Patient Temperature 98.6 Blood Gas HCO3 16 Blood Gas Base Excess -8.6 Blood Gas Oxygen Saturation 98 Arterial Blood pH 7.37 Arterial Blood Partial Pressure CO2 28 Arterial Blood Partial Pressure O2 179 Arterial Blood Oxygen Content 13.7 Arterial Blood Carboxyhemoglobin 0.6 Arterial Blood Methemoglobin 0.8 Blood Gas Hemoglobin 9.7 Oxygen Delivery Device VENTILATOR Blood Gas Ventilator Setting 12/450/IT1.0/5PEEP Blood Gas Inspired Oxygen 40 Date/Time Source Procedure Growth Status 06/12/17 20:00 Blood Peripheral Aerobic Blood Culture - Final Micrococcus Species Complete 06/12/17 20:00 Blood Peripheral Anaerobic Blood Culture - Final NO GROWTH IN 5 DAYS Complete Imaging Last Impressions Chest X-Ray 06/18/17 0600 Signed Impressions: Service Date/Time: Sunday, June 18, 2017 04:45 - CONCLUSION: Bibasilar consolidation and small effusions again noted. Slight improvement on the left. Ebenezer Bejarano MD Neck Magnetic Resonance Angiography 06/15/17 0000 Signed Impressions: Service Date/Time: Thursday, June 15, 2017 11:41 - CONCLUSION: Negative for hemodynamically significant stenosis. Charly Maldonado MD FACR Carotid Artery Ultrasound 06/14/17 0000 Signed Impressions: Service Date/Time: May 10:15 - CONCLUSION: Elevated peak systolic velocity of the proximal left internal carotid artery indicating possible high-grade stenosis. Recommend CTA carotids for further evaluation. Elevated right external carotid peak systolic velocity also noted. Jim Marrero MD Head CT 06/12/17 1913 Signed Impressions: Service Date/Time: Monday, June 12, 2017 19:45 - CONCLUSION: Negative noncontrast head CT. Ebenezer Bejarano MD Physical Exam HEENT: Normocephalic; atraumatic CHEST: Resp even/unlabored CARDIAC: SR ABDOMEN: Soft, nondistended, nontender; no hepatosplenomegaly; bowel sounds are present in all four quadrants. EXTREMITIES: BUE mildly edematous, ecchymotic LEAVE MANAGER: Lethargic, oriented to place and person. (Karina Castanon [facility]) Assessment and Plan Plan ASSESSMENT: - Upper GI Bleeding. S/P EGD (06/15/17)---> 1. Severe grade D esophagitis and then lower half of the esophagus biopsy was done, most likely this is the reason for the nausea vomiting and anemia. 2. Severe duodenitis and gastritis biopsy from the antrum to rule out H. pylori. 3. Normal endoscopy otherwise. 4. Multiple polyps in the body of the stomach one of them removed by snare. 5. Retroflexed views revealed a few gastric polyps in the body of the stomach. Pathology is pending. She then had vomiting dark blood on and underwent Rpt. EGD (06/16/17)---> GI bleed from esophagitis most likely. She was extubated and has not had any other bleeding. S/P 3 units PRBC, HH 7.0/20.7. Serial HH's. Protonix IV 40mg IV BID. - Severe Gr. D Esophagitis, gastritis, severe duodenitis, gastric polyps. Pathology pending. PPI - Anemia, acute blood loss. S/P 3 units PRBC, HH 7.0/20.7. Protonix - N/V. EGD as above. Not currently with any n/v. - Leukocytosis, bacteremia. Cx Micrococcus species. WBC 16.8 - ARTIE, Creat 2.57. - Respiratory failure, PNA. S/P Extubation. PLAN: - Clear liquids for lunch - If tolerates, full liquids for dinner - Await pathology - Protonix with BID dosing - Monitor HH - Transfuse as necessary - Supportive care - Further recommendations to follow based on results of above - Pt seen and examined by Dr. Coates and myself and this note is written on her behalf (Karina Castanon) Physician Comments seen, examined agree with above slow progression of diet (Bijal Coates MD) Karina Castanon Jun 18, 2017 12:41 Bijal Coates MD Jun 18, 2017 18:30
[2017-06-18 17:45] LABS: HEMATOCRIT 22.5 % (35.0-46.0); REVIEW FLAG FINAL
[2017-06-18] MEDS: LEVOFLOXACIN 250 MG PREMIX INJ 50 ML IV SCH (22:58)
[2017-06-19] VITALS (17 sets, daily range): BP systolic 103–158; BP diastolic 53–69; PULSE 83–113; RESP 14–21; TEMP 97.9–98.9; O2SAT 96–100
[2017-06-19] MEDS: AZTREONAM INJ 500 MG in SODIUM CHLORIDE 0.9% INJ 100 ML IV SCH ×4 (00:58→23:24)
[2017-06-19] MEDS: CHLORHEXIDINE GLUCONATE 2 % 1 PACK (2 CLOTHS) TOP SCH (04:00)
[2017-06-19] MEDS: RESP: ALBUTEROL 2.5 MG/IPRATROPIUM 0.5 MG NEB (SCH) NEB ×4 (04:06→19:36)
[2017-06-19] MEDS: LACTATED RINGER'S 1000 ML INJ 1,000 ML IV SCH (04:25)
--- NOTE | 2017-06-19 05:07 | RADRPT ---
EXAM DATE/TIME: 06/19/2017 03:25 [place] COMPARISON: CHEST SINGLE AP, June 18, 2017, 4:45. INDICATIONS : Respiratory failure. MEDICAL HISTORY : Hypertension. Cardiovascular disease. SURGICAL HISTORY : Coronary artery stent. Appendectomy. Hysterectomy. ENCOUNTER: Subsequent ACUITY: 1 week PAIN SCORE: Non-responsive. LOCATION: Bilateral chest FINDINGS: Mild bibasilar consolidation and small pleural effusions are without significant change. No pneumotho rax. Heart size stable, upper limits of normal. Endotracheal tube and nasogastric tube out. Right internal jugular central venous catheter remains in place, tip at atriocaval junction. CONCLUSION: No significant change bibasilar consolidation and small effusions. Patient has been extubated. Ebenezer Bejarano MD on June 19, 2017 at 5:04 Board Certified Radiologist. This report was verified electronically.
[2017-06-19 05:27] LABS: MEAN CELL VOLUME 84.5 FL (80.0-100.0); MEAN CORPUSCULAR HEMOGLOBIN 29.5 PG (27.0-34.0); MEAN CORPUSCULAR HGB CONC 34.8 % (32.0-36.0); PLATELET COUNT 104 TH/MM3 (150-450); RED BLOOD COUNT 2.45 MIL/MM3 (4.00-5.30); RED CELL DISTRIBUTION WIDTH 15.5 % (11.6-17.2); WHITE BLOOD COUNT 10.6 TH/MM3 (4.0-11.0)
[2017-06-19 05:52] LABS: BICARBONATE 21.4 MEQ/L (21.0-32.0); MAGNESIUM 1.8 MG/DL (1.5-2.5); POTASSIUM 3.5 MEQ/L (3.5-5.1)
[2017-06-19 05:59] LABS: REVIEW FLAG FINAL
[2017-06-19 06:02] LABS: HEMATOCRIT 20.7 % (35.0-46.0)
[2017-06-19] MEDS: AMIODARONE INJ 450 MG in DEXTROSE 5% IN WATE(EXCEL) INJ 241 ML IV SCH ×2 (07:15)
[2017-06-19] MEDS: CHLORHEXIDINE 0.12% (ORAL KIT) 15 ML CUP MT SCH ×2 (07:16→20:00)
[2017-06-19] MEDS: INSULIN ASPART SUPPLEMENTAL SCALE SQ SCH ×4 (08:00→21:00)
[2017-06-19 08:36] LABS: CALCIUM-PROTEIN CORRECTED 9.8 MG/DL (8.5-10.1)
[2017-06-19] MEDS: DOCUSATE SODIUM 50 MG/SENNA 8.6 MG TAB PO SCH ×2 (08:49→20:50)
[2017-06-19] MEDS: ATORVASTATIN 40 MG TAB PO SCH (08:56)
[2017-06-19] MEDS: ACYCLOVIR 800 MG TAB PO SCH ×2 (08:56→20:49)
[2017-06-19] MEDS: METOPROLOL TARTRATE 25 MG TAB PO SCH ×2 (08:56→20:48)
[2017-06-19] MEDS: PANTOPRAZOLE SODIUM 40 MG VIAL IV PUSH SCH ×2 (08:56→20:48)
[2017-06-19] MEDS: SODIUM CHLORIDE 0.9% FLUSH 10 ML FLUSH IV FLUSH SCH ×2 (08:57→20:50)
--- NOTE | 2017-06-19 09:54 | HHI.GIFU ---
Subjective Remarks Resting in bed. Tolerating full liquids. No active bleeding. Denies any nausea, vomiting, abdominal pain. Had a small bowel movement yesterday on bedpan, but did not see what color it was. (Karina Castanon) Objective Vitals I&O Vital Signs Date Time Temp Pulse Resp B/P (MAP) Pulse Ox O2 Delivery O2 Flow Rate FiO2 06/19/17 09:47 98.1 110 14 119/56 100 06/19/17 08:25 100 Nasal Cannula 2.00 06/19/17 07:15 101 105/56 06/19/17 06:00 86 06/19/17 04:00 98.9 94 16 106/53 (70) 100 06/19/17 04:00 94 06/19/17 02:00 94 06/19/17 00:00 98.0 98 16 111/54 (73) 100 06/19/17 00:00 99 06/18/17 22:00 97 06/18/17 20:18 99 Nasal Cannula 2.00 06/18/17 20:00 86 06/18/17 20:00 97.9 86 18 120/55 (76) 100 Arterial Line 06/18/17 18:00 88 06/18/17 16:15 96 115/54 06/18/17 16:00 98.1 86 14 117/57 (77) 100 06/18/17 16:00 90 06/18/17 14:00 78 06/18/17 13:00 75 109/71 06/18/17 12:00 97.9 73 14 117/57 100 06/18/17 12:00 97.9 73 14 117/57 (77) 100 06/18/17 12:00 73 06/18/17 11:05 97.9 82 14 145/73 100 06/18/17 10:50 98.4 80 16 154/73 100 06/18/17 10:21 98.6 86 121/50 100 06/18/17 10:00 84 I/O 06/18/17 06/18/17 06/18/17 06/19/17 06/19/17 06/19/17 07:00 15:00 23:00 07:00 15:00 23:00 Intake Total 1027 ml 125 ml Output Total 475 ml 730 ml 375 ml Balance -475 ml 1027 ml -730 ml -250 ml Intake Oral 125 ml IV Total 207 ml Packed Cells 800 ml Blood Product IV Normal Saline Flush 20 ml Output Urine Total 350 ml 575 ml 375 ml Stool Total 25 ml 155 ml Gastric Drainage Total 100 ml # Bowel Movements 2 2 Laboratory Laboratory Tests Test 06/18/17 16:00 06/18/17 17:00 06/19/17 05:05 Nasal Screen MRSA (PCR) MRSA NOT DETECTED Hemoglobin 7.7 7.2 Hematocrit 22.5 20.7 White Blood Count 10.6 Red Blood Count 2.45 Mean Corpuscular Volume 84.5 Mean Corpuscular Hemoglobin 29.5 Mean Corpuscular Hemoglobin Concent 34.8 Red Cell Distribution Width 15.5 Platelet Count 104 Mean Platelet Volume 7.4 Blood Urea Nitrogen 62 Creatinine 2.49 Random Glucose 77 Calcium Level 7.6 Phosphorus Level 3.3 Magnesium Level 1.8 Sodium Level 144 Potassium Level 3.5 Chloride Level 114 Carbon Dioxide Level 21.4 Anion Gap 9 Estimat Glomerular Filtration Rate 18 Protein Corrected Calcium 9.8 Total Protein 4.0 Date/Time Source Procedure Growth Status 06/12/17 20:00 Blood Peripheral Aerobic Blood Culture - Final Micrococcus Species Complete 06/12/17 20:00 Blood Peripheral Anaerobic Blood Culture - Final NO GROWTH IN 5 DAYS Complete Physical Exam HEENT: Normocephalic; atraumatic CHEST: Resp even/unlabored CARDIAC: SR ABDOMEN: Soft, nondistended, nontender; no hepatosplenomegaly; bowel sounds are present in all four quadrants. EXTREMITIES: BUE mildly edematous, ecchymotic ENERGY EFFICIENCY SPECIALIST: Lethargic, oriented to place and person. (Karian CastanonP) Assessment and Plan Plan ASSESSMENT: - Upper GI Bleeding. S/P EGD (06/15/17)---> 1. Severe grade D esophagitis and then lower half of the esophagus biopsy was done, most likely this is the reason for the nausea vomiting and anemia. 2. Severe duodenitis and gastritis biopsy from the antrum to rule out H. pylori. 3. Normal endoscopy otherwise. 4. Multiple polyps in the body of the stomach one of them removed by snare. 5. Retroflexed views revealed a few gastric polyps in the body of the stomach. Pathology is pending. She then had vomiting dark blood on and underwent Rpt. EGD (06/16/17)---> GI bleed from esophagitis most likely. S/P 3 units PRBC, HH 7.2/20.7. Tolerating diet. Protonix IV 40mg IV BID. No active bleeding. - Severe Gr. D Esophagitis, gastritis, severe duodenitis, gastric polyps. Pathology pending. PPI - Anemia, acute blood loss. S/P 3 units PRBC, HH 7.0/20.7. Protonix - N/V. EGD as above. Not currently with any n/v. - Leukocytosis, bacteremia. Cx Micrococcus species. WBC 10.6 - ARTIE, Creat 2.49 - Respiratory failure, PNA. S/P Extubation. PLAN: - Heart healthy diet - Await pathology - Protonix with BID dosing - Monitor HH - Transfuse as necessary - Supportive care - Further recommendations to follow based on results of above - Pt seen and examined by Dr. Coates and myself and this note is written on her behalf (Karina Castanon) Physician Comments seen, examined agree with above gi will sign off, call us as needed if dc fu office egd in 4-6 weeks otherwise (Bijal Coates MD) Karina Castanon Jun 19, 2017 09:54 Bijal Coates MD Jun 19, 2017 15:39
[2017-06-19] MEDS: SUCRALFATE 1 GM/10 ML CUP PO SCH ×4 (10:25→20:49)
--- NOTE | 2017-06-19 10:32 | HHI.CCPN ---
Subjective Remarks/Hospital Course This is 87-year-old female that presented to the ED on 06/12/17 for evaluation of syncopal episode. According to the family patient has history of hypertension and dyslipidemia. On 06/07/17 he was diagnosed with shingles affecting the right trunk and chest wall. Patient was seen by her primary care provider and started on gabapentin and acyclovir. Family has noted since starting the new medications she has been a little confused and off balance. Patient reportedly had a fall the bathroom on 06/11/17, and several recurrent falls. On 06/11/17, the patient did contuse her left shoulder and it is suspected that she hit her head. On 06/12/17 the patient was found to be unresponsive sitting upright in her chair. Daughter states that she had some guttural respirations and then vomited. The daughter tried to keep her from aspirating. There was no trauma or fall associated with the syncopal episode which was seconds in duration. Daughter does not believe she saw any seizure activity. No witnessed incontinence. No prior history of seizure. EMS was contacted and upon their arrival patient refused transportation by EMS. Patient is brought in by private vehicle. Patient's had no recent febrile illness. No shaking chills. No previous cough congestion shortness of breath chest pain abdominal pain nausea vomiting diarrhea dysuria or new joint pain or swelling. Since the episode of vomiting patient has had increasing congested cough. No reported witnessed coffee-ground emesis or hematemesis on initial evaluation. Since her admission the patient was noted to have hematemesis, gastroenterology was consulted has been following. Early this a.m. the patient was noted to have one episode of hematemesis of approximately 300 cc, PPI was increased. A discussion with the family by Dr. Marques, the patient did not want any endoscopic procedures at that time. Midday the patient was noted to have subsequent bouts of hematemesis with a significant drop in hemoglobin to 7.0 and hypotension with systolic blood pressure in the 60s70s. The patient has a medical history significant for grade D esophagitis. Critical care medicine was consulted for management .The patient was transfused 2 units of blood continued to have hypotensive episodes, norepinephrine was instituted and the patient was emergently transferred to [facility]. Discussion with the family by Dr. Marques, and I, the family has decided for endoscopic procedure. The patient was intubated for airway protection was noted blood around hypopharynx and epiglottis with confirmation of recent aspiration. Subjective: 06/17/17: The patient underwent EGD last evening. OGT was placed, kept on LIWS during the night. 325 cc bloody gastric output noted. The patient continues on serial H&H, last hemoglobin 9.6. Patient now having diarrhea, Hemoccult stool, C. difficile PCR pending. The patient remains intubated for airway protection, per report of the RN blood emanating from oropharynx intermittently. 06/18: Last evening around 6 PM the patient went into A. fib with RVR, with patient was bolused with amiodarone followed by an amiodarone infusion that continues. Resolution of arrhythmia however the patient continues during the night to be hypotensive and continued on norepinephrine. This a.m. CPAP trials were initiated sedation turned off patient continues on amiodarone denies any pain plans for CPAP trials with extubation. Hemoglobin noted to be 7.0 today from 7.4 . Type and screen performed. Will transfuse 1 unit packed red blood cells in the setting of A. fib., To maintain hemoglobin greater than 8.0. 06/19: Patient successfully extubated yesterday afternoon. Diet has been advanced to full liquids. Continued close monitoring of hemoglobin and hematocrit noted still less than 8.0 will transfuse 1 unit this a.m.. Palliative care consulted for clarification of goals of care with family. Patient noticed sinus tachycardia the low 100s beta blockers reinstituted. . Objective Vital Signs Date Time Temp Pulse Resp B/P (MAP) Pulse Ox O2 Delivery O2 Flow Rate FiO2 06/19/17 10:05 97.9 103 14 110/55 100 06/19/17 08:25 Nasal Cannula 2.00 06/18/17 09:45 97 Intake and Output 06/19/17 06/19/17 06/20/17 08:00 16:00 00:00 Intake Total 125 ml Output Total 375 ml Balance -250 ml Result Diagram: 06/19/17 0505 06/19/17 0505 Imaging Last Impressions Chest X-Ray 06/19/17 0600 Signed Impressions: Service Date/Time: Monday, June 19, 2017 03:25 - CONCLUSION: No significant change bibasilar consolidation and small effusions. Patient has been extubated. Ebenezer Bejarano MD Neck Magnetic Resonance Angiography 06/15/17 Signed Impressions: Service Date/Time: Thursday, June 15, 2017 11:41 - CONCLUSION: Negative for hemodynamically significant stenosis. Charly Maldonado MD FACR Carotid Artery Ultrasound 06/14/17 Signed Impressions: Service Date/Time: May 10:15 - CONCLUSION: Elevated peak systolic velocity of the proximal left internal carotid artery indicating possible high-grade stenosis. Recommend CTA carotids for further evaluation. Elevated right external carotid peak systolic velocity also noted. Jim Marrero MD Head CT 06/12/171912 Signed Impressions: Service Date/Time: Monday, June 12, 2017 19:45 - CONCLUSION: Negative noncontrast head CT. Ebenezer Bejarano MD Last Impressions Neck Magnetic Resonance Angiography 06/15/17 Signed Impressions: Service Date/Time: Thursday, June 15, 2017 11:41 - CONCLUSION: Negative for hemodynamically significant stenosis. Charly Maldonado MD FACR Carotid Artery Ultrasound 06/14/17 Signed Impressions: Service Date/Time: May 10:15 - CONCLUSION: Elevated peak systolic velocity of the proximal left internal carotid artery indicating possible high-grade stenosis. Recommend CTA carotids for further evaluation. Elevated right external carotid peak systolic velocity also noted. Jim Marrero MD Chest X-Ray 06/13/17 Signed Impressions: Service Date/Time: Tuesday, June 13, 2017 12:50 - CONCLUSION: 1. Bibasilar parenchymal change worse on the right. This could be an early inflammatory process. 2. PA and lateral chest is suggested to follow. Charly Maldonado MD FACR Head CT 06/12/171912 Signed Impressions: Service Date/Time: Monday, June 12, 2017 19:45 - CONCLUSION: Negative noncontrast head CT. Ebenezer Bejarano MD Objective Remarks GENERAL: Elderly petite female awake and alert, pleasantly conversant SKIN: Warm and dry. HEAD: Atraumatic. Normocephalic. EYES: Pupils equal and round. No scleral icterus. No injection or drainage. ENT: No nasal bleeding or discharge. Mucous membranes pink and moist. NECK: Trachea midline. No JVD. CARDIOVASCULAR: Tachycardic rate, regular rhythm. Telemetry sinus tach 108 RESPIRATORY: No accessory muscle use. Clear to auscultation. Breath sounds equal bilaterally. GASTROINTESTINAL: Abdomen soft, non-tender, nondistended. No guarding. Normoactive bowel sounds. OGT continuous heme positive gastric output, noted MUSCULOSKELETAL: Extremities without clubbing, cyanosis, or edema. No obvious deformities. NEUROLOGICAL: GCS 11T, RASS -2. No gross focal/sensory deficits. Follows commands in all 4 extremities. Propofol infusion for ventilator synchrony Procedures 06/16-EGD Date of Insertion: Jun 16, 2017 Line: Central Venous Catheter Side: Right Location: Internal, Jugular A/P Assessment and Plan This is a 87-year-old female with grade D esophagitis progressive hematemesis, subsequent episodes on quantified at approximately 700 cc +, with subsequent hypovolemic shock requiring blood transfusions and vasopressor support. Discussion with the family aggressive measures at this time to be instituted. Prognosis is guarded at this time. Assessment Hypovolemic shock secondary to acute blood loss anemia Grade D esophagitis Aspiration H/O Hypertension Hiatal hernia Pneumonia Stage IV kidney disease Shingles/herpes right chest Hyperglycemia of critical illness A. fib RVR Plan by systems: Neurologic: Propofol infusion for ventilator synchrony Daily sedation vacation Neurochecks per ICU protocol Respiratory: Patient intubated for airway protection. 7.5 at 23 cm at the lip Ventilator bundle Bronchodilators every 6 hours scheduled and every 2 hours when necessary CPAP trials as clinically indicated post upper endoscopy, maintain intubation for airway protection Obtain SBT parameters for planned extubation Cardiovascular: IV fluid LR@ KVO Maintain MAP of 65mmHg. norepinephrine discontinued 06/18 Amiodarone infusion at 0.5 mg/hour Hold patient's antihypertensive medications metoprolol, hydralazine, and Norvasc Continue atorvastatin 06/16 Discontinue ASA Renal: Maintain Adrian -- Strict I/Os FEN/GI: Monitor BMP Elevated creatinine 2.57 Zofran for nausea Discontinue Phenergan Patient to remain nothing by mouth-plan for PPN or TPN, follow-up recommendations of GI GI following- Dr. Marques Heme/ID: Serial H&H every 6 hours, status post 2 units PRBCs 7.0->9.4 Transfuse for hemoglobin less than 8.0. Planned transfusion 1 unit of PRBC today ID following-Dr. Jasso- currently on Azactam , Levaquin, acyclovir Follow-up blood urine and sputum cultures 06/12 blood culture-micrococcus Endocrine: Glucose monitoring per ICU protocol -- SSI Prophylaxis: GI Prophylaxis Protonix DVT Prophylaxis -- SCDs Of pharmacological DVT prophylaxis in the setting of GI bleed Lines: Peripheral IVs 2. Right IJ (06/16), right radial A-line (06/16) Dispo: Discussed with family , patient's son and MARKETING DATA SPECIALIST at bedside This patient remains critically ill with one or more organ systems which are or may become a threat to life. I have spent in excess of 30 minutes discontinuously in the care and management of this patient. This time is exclusive of procedures, and includes, but is not limited to, evaluation of the patient, review of the medical record, discussions with family, consultants, nursing staff, or respiratory therapy, and documentation in the medical record. Eugenia Arnett MD Jun 19, 2017 10:32
--- NOTE | 2017-06-19 12:05 | PD.CONS ---
Consult Service Palliative Care Consult Requested By Dr. Arnett. . Primary Care Physician Estrella Mauricio M.D. . Reason for Consultation a. To assist with evaluation and management of symptoms including: nausea, debility, malnutrition b. To assist medical decision maker(s) with: better understanding of current medical conditions; weighing benefits/burdens of medical treatment options; making medical treatment decisions. . (Concha Langston) HPI History of Present Illness Patient is a 87 year old female who presented to the [facility] ED on via private transportation under the care of her family for a syncopal episode at home. Patient was recently diagnosed with shingles by her primary care provider which was treated with gabapentin 300mg QHS and acyclovir 800mg BID. The patient's family reported that since the initiation of the new medications she has had confusion and balance issues. Patient has had several falls at home, before her arrival to the ED she had an unwitnessed fall, she suffered a shoulder contusion and it was suspected she injured her head. Following the fall the patient's daughter sat her up in chair, when she came back to check on her mother the patient was unresponsive, she then experienced some guttural respirations followed by emesis. EMS was called however upon their arrival the patient refused transport. * ED workup: Laboratory data: Hgb:9.5, Hct:29.1, BUN: 64, Creatinine:3.20, eGFR :14, Troponin:<0.02, BNP:324, Total protein: 6.3, Albumin: 3.3. ECG: Sinus tachycardia. Head CT: Negative. CXR: No evidence of acute cardiopulmonary disease. Patient admitted for syncope, possible aspiration with possible developing aspiration pneumonia, shingles, and stage IV kidney disease. * Hospitalist ordered Holter monitor, EEG, consulted neurology, consulted ID for aspiration pneumonia. * 06/13/17: Neurology consult: ordered carotid U/S. EEG: Normal awake EEG. No evidence for focal or diffuse abnormality. CXR: Bibasilar parenchymal change worse on the right. This could be early inflammatory process. Leukocytosis, WBC: 19.1, Hb.4, BUN/Creat:65/3.30, eGFR:13. 9/: Carotid U/S: Possible high grade stenosis. Recommend CTA for further evaluation. * 06/14/17: ID consult, adjustments to antimicrobial therapy completed for aspiration pneumonia. * GI consulted on 06/14/17 for anemia, nausea, and vomiting. No reported hematemesis at this time. Plan for EGD and colonoscopy. * 06/15/17: EGD: Severe grade D esophagitis, biopsied. Severe duodenitis and gastritis biopsy to rule out H. pylori. Neck MRA: Negative. * 06/16/17: Patient experienced episode of dark hematemesis, Hgb: 7.0, transfused 2 units PRBCs, at that time the patient declined any endoscopic procedures. As the day progressed the patient continued to have subsequent bouts of hematemesis and became hypotensive, norepinephrine initiated. The patient was emergently transferred to [facility] for critical care management. Patient's family then decided to move forward with repeat EGD. Patient was intubated for airway protection. EGD: GI bleed from esophagitis most likely. * 06/17/17: Patient remained intubated for airway protection, OGT to LIWS with bloody gastric output, patient remained hypotensive requiring norepinephrine to aid in maintaining hemodynamic stability. During the evening patient went into a. fib with RVR, amiodarone bolus initiated and infusion continued. * 06/18/17: Hemoglobin continues to trend down from 7.4 to 7.0, transfused 1 unit of PRBCs. Patient extubated in the afternoon. * 06/19/17: Patient's hemoglobin continues to trend down, 7.2 today, transfused 1 unit of PRBCs. Norepinephrine and amiodarone gtt D/C. Patient examined, family at bedside, daughter, two sons, and daughter in law. Patient is resting comfortably in bed, denies any pain, nausea, or shortness of breath. Patient is awake, alert, oriented x3, very pleasant. She endorses that she does not have much of an appetite and did not eat very much of her lunch. She stated she still has some abdominal discomfort. Palliative care was consulted assist with goals of care to provide support/ guidance regarding medical treatment benefit/burden medical treatment options. Function/Cognitive Trajectory Prior to this hospitalization patient lived with her son and was frequently checked in on by her daughter. 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 The patient would ride her bicycle with her son approximately 3 miles about 3 times a week. . (Concha Langston) Review of Systems Constitutional: COMPLAINS OF: Weight loss, Change in appetite, DENIES: Fever, Chills, Pain, Generalized weakness Eyes: DENIES: Blurred vision Respiratory: COMPLAINS OF: Cough, Shortness of breath Cardiovascular: COMPLAINS OF: Syncope, DENIES: Chest pain, Palpitations, Dyspnea on Exertion, Orthopnea Gastrointestinal: COMPLAINS OF: Dyspepsia or heartburn, DENIES: Abdominal pain , Nausea Musculoskeletal: COMPLAINS OF: Decreased range of motion Integumentary: COMPLAINS OF: Rash (Shingles) Neurologic: COMPLAINS OF: Tremor, Poor Balance, DENIES: Seizures, Speech Problems Psychiatric: COMPLAINS OF: Confusion, DENIES: Depression (Concha Langston) Past Family Social History Coded Allergies: penicillin G (Unverified Allergy, Mild, Rash, 06/12/17) Past Medical History HTN Stage IV kidney disease eGFR typically runs around 14-17 per daughter Left renal artery stenosis S/P stent in 2009 Hyperlipidemia Benign colon mass Pulmonary edema Osteoarthritis Osteoporosis Gout Secondary hyperparathyroidism Anemia . Past Surgical History Hysterectomy Bilateral salpingo-oophorectomy Appendectomy Right carpal tunnel release Bilateral total knee arthroplasty Right hemicolectomy \\ . Reported Medications Active Simvastatin 40 Mg Tab 40 Mg PO HS Hydralazine HCl 50 Mg Tablet 50 Mg PO TID Reported Metoprolol Tartrate 25 Mg Tab 25 Mg PO BID Losartan (Losartan Potassium) 100 Mg Tab 100 Mg PO DAILY Amlodipine (Amlodipine Besylate) 2.5 Mg Tab 2.5 Mg PO DAILY Aspirin 81 Mg Chew 81 Mg CHEW DAILY Acyclovir 800 Mg Tab 800 Mg PO BID . Current Medications Medications (Trade) Dose Ordered Sig/Rafael Route Start Time Stop Time Status Last Admin (Zovirax) 800 mg BID PO 06/12/17 21:00 06/19/17 08:56 (Norvasc) 2.5 mg DAILY PO 06/13/17 09:00 Future Hold 06/13/17 07:47 (Cozaar) 100 mg DAILY PO 06/13/17 09:00 Future Hold 06/13/17 07:48 (Tylenol) 500 mg Q6H PRN PO 06/12/17 21:00 06/13/17 07:47 Levofloxacin/ Dextrose 50 ml @ 50 mls/hr Q48H IV 06/12/17 23:00 06/18/17 22:58 (Apresoline) 50 mg Q8HR PO 06/12/17 22:00 Future Hold 06/16/17 06:32 (Lipitor) 40 mg DAILY PO 06/13/17 09:00 06/19/17 08:56 Aztreonam 500 mg/ Sodium Chloride 100 ml @ 200 mls/hr Q8H IV 06/13/17 00:00 06/19/17 08:56 (Zofran Inj) 4 mg Q6H PRN IV 06/14/17 04:00 06/16/17 13:07 (Carafate Liq) 1 gm ACHS PO 06/16/17 08:00 06/19/17 10:25 (NS Flush) 2 ml UNSCH PRN IV FLUSH 06/16/17 15:15 (NS Flush) 2 ml BID IV FLUSH 06/16/17 21:00 06/19/17 08:57 Miscellaneous Information 1 Q361D XX 06/16/17 15:15 06/16/17 15:15 (Chlorhexidine 2% Cloth) 3 pack Taper DAILY@04 TOP 06/17/17 04:00 06/13/18 03:59 06/18/17 04:00 (Chlorhexidine 2% Cloth) 3 pack UNSCH PRN TOP 06/16/17 15:15 (Cindy-Colace) 1 tab BID PO 06/16/17 21:00 06/18/17 09:08 (Milk Of Magnesia Liq) 30 ml Q12H PRN PO 06/16/17 15:15 (Senokot) 17.2 mg Q12H PRN PO 06/16/17 15:15 (Dulcolax Supp) 10 mg DAILY PRN RECTAL 06/16/17 15:15 (Lactulose Liq) 30 ml DAILY PRN PO 06/16/17 15:15 (Peridex 0.12% Liq) 15 ml BID@08,20 MT 06/16/17 20:00 06/18/17 09:07 (D50w (Vial) Inj) 50 ml UNSCH PRN IV PUSH 06/16/17 17:45 (Glucagon Inj) 1 mg UNSCH PRN OTHER 06/16/17 17:45 (NovoLOG SUPPLEMENTAL SCALE) 1 ACHS SLIDING SCALE SQ 06/16/17 21:00 06/16/17 21:00 (Duoneb Neb) 1 ampule Q6HR NEB NEB 06/17/17 10:00 06/19/17 08:24 (Duoneb Neb) 1 ampule Q2HR NEB PRN NEB 06/17/17 07:00 (Protonix Inj) 40 mg BID IV PUSH 06/17/17 21:00 06/19/17 08:56 (Lopressor) 25 mg BID PO 06/19/17 08:51 06/19/17 08:56 . Family History Mother at 83 of heart disease. She also had rheumatoid arthritis and kidney disease. Father at 48 of a cerebral hemorrhage. A brother had a pacemaker and sister had aortic valve replacement. . Substance Use Tobacco: None reported. Alcohol: None reported. Prescription med abuse: None reported. Illicits: None reported. . 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 Recently in November of this year. Patient has three sons and one daughter. Spiritual/Cultural Factors Yazidism. . (Concha Langston) Health Care Surrogate(s): Daughter Kaela Nash is reported HCS, family to bring in copy of living will and HCS tomorrow . Ethical and Legal Issues None known. . (Concha Langston) Physical Exam Vital Signs Date Time Temp Pulse Resp B/P (MAP) Pulse Ox O2 Delivery O2 Flow Rate FiO2 06/19/17 10:05 97.9 103 14 110/55 100 06/19/17 10:00 103 06/19/17 09:47 98.1 110 14 119/56 100 06/19/17 08:25 100 Nasal Cannula 2.00 06/19/17 08:00 113 06/19/17 08:00 98.1 113 16 121/62 (81) 100 06/19/17 07:15 101 105/56 06/19/17 06:00 86 06/19/17 04:00 98.9 94 16 106/53 (70) 100 06/19/17 04:00 94 06/19/17 02:00 94 06/19/17 00:00 98.0 98 16 111/54 (73) 100 06/19/17 00:00 99 06/18/17 22:00 97 06/18/17 20:18 99 Nasal Cannula 2.00 06/18/17 20:00 86 06/18/17 20:00 97.9 86 18 120/55 (76) 100 Arterial Line 06/18/17 18:00 88 06/18/17 16:15 96 115/54 06/18/17 16:00 98.1 86 14 117/57 (77) 100 06/18/17 16:00 90 06/18/17 14:00 78 06/18/17 13:00 75 109/71 06/18/17 12:00 97.9 73 14 117/57 100 06/18/17 12:00 97.9 73 14 117/57 (77) 100 06/18/17 12:00 73 06/18/17 11:05 97.9 82 14 145/73 100 . Exam CONSTITUTIONAL/GENERAL: This is an elderly female patient, in no apparent distress, awake and alert, very pleasant. TUBES/LINES/DRAINS: PIV x 2, CVL RIJ SKIN: No jaundice, rashes, or lesions. Ecchymoses on upper extremities. No wounds seen anteriorly. Skin temperature appropriate. Not diaphoretic. HEAD: Atraumatic. Normocephalic. EYES: Pupils equal and round and reactive. Extraocular motions intact. No scleral icterus. No injection or drainage. Fundi not examined. ENT: Hearing grossly normal. Nose without bleeding or purulent drainage. NECK: Trachea midline. Supple, nontender. CARDIOVASCULAR: Regular rate and rhythm without murmurs, gallops, or rubs. No JVD. Peripheral pulses symmetric. RESPIRATORY/CHEST: Symmetric, unlabored respirations. Clear to auscultation. Breath sounds equal bilaterally. No wheezes, rales, or rhonchi. GASTROINTESTINAL: Abdomen soft, non-tender, nondistended. No guarding. Bowel sounds present. GENITOURINARY: Without palpable bladder distension. MUSCULOSKELETAL: Extremities without clubbing or cyanosis. 2+ edema in BUE. No mottling or clubbing. NEUROLOGICAL: Awake and alert. Motor and sensory grossly within normal limits. Follows commands. Cognitively sharp. Moves all extremities. PSYCHIATRIC: No obvious anxiety/depression. no apparent hallucinations or other psychotic thought process. . (Ivis,Concha Lagosnilton CYR) Diagnostic Tests Laboratory Laboratory Tests Test 06/16/17 15:35 06/16/17 17:36 06/16/17 19:20 06/16/17 23:25 White Blood Count 9.3 TH/MM3 (4.0-11.0) 14.6 TH/MM3 (4.0-11.0) Red Blood Count 3.22 MIL/MM3 (4.00-5.30) 3.27 MIL/MM3 (4.00-5.30) Hemoglobin 9.4 GM/DL (11.6-15.3) 9.6 GM/DL (11.6-15.3) Hematocrit 27.5 % (35.0-46.0) 27.8 % (35.0-46.0) Mean Corpuscular Volume 85.5 FL (80.0-100.0) 84.9 FL (80.0-100.0) Mean Corpuscular Hemoglobin 29.1 PG (27.0-34.0) 29.4 PG (27.0-34.0) Mean Corpuscular Hemoglobin Concent 34.0 % (32.0-36.0) 34.7 % (32.0-36.0) Red Cell Distribution Width 14.9 % (11.6-17.2) 15.3 % (11.6-17.2) Platelet Count 103 TH/MM3 (150-450) 121 TH/MM3 (150-450) Mean Platelet Volume 8.0 FL (7.0-11.0) 8.5 FL (7.0-11.0) Prothrombin Time 12.0 SEC (9.8-11.6) Prothromb Time International Ratio 1.1 RATIO Activated Partial Thromboplast Time 51.0 SEC (24.3-30.1) Blood Urea Nitrogen 70 MG/DL (7-18) Creatinine 2.58 MG/DL (0.50-1.00) Random Glucose 129 MG/DL (74-106) Total Protein 4.1 GM/DL (6.4-8.2) Calcium Level 7.3 MG/DL (8.5-10.1) Sodium Level 138 MEQ/L (136-145) Potassium Level 5.4 MEQ/L (3.5-5.1) Chloride Level 110 MEQ/L (98-107) Carbon Dioxide Level 16.7 MEQ/L (21.0-32.0) Anion Gap 11 MEQ/L (5-15) Estimat Glomerular Filtration Rate 18 ML/MIN (>89) Lactic Acid Level 1.5 mmol/L (0.4-2.0) Protein Corrected Calcium 9.1 MG/DL (8.5-10.1) Blood Gas Puncture Site ART LINE ART LINE Blood Gas Patient Temperature 98.6 98.6 Blood Gas HCO3 14 mmol/L (22-26) 18 mmol/L (22-26) Blood Gas Base Excess -11.1 mmol/L (-2-2) -5.8 mmol/L (-2-2) Blood Gas Oxygen Saturation 97 % (90-100) 98 % (90-100) Arterial Blood pH 7.32 (7.380-7.420) 7.39 (7.380-7.420) Arterial Blood Partial Pressure CO2 27 mmHg (38-42) 30 mmHg (38-42) Arterial Blood Partial Pressure O2 221 mmHg (61-120) 260 mmHg (61-120) Arterial Blood Oxygen Content 14.0 Vol % (12.0-20.0) 14.3 Vol % (12.0-20.0) Arterial Blood Carboxyhemoglobin 1.1 % (0-4) 1.2 % (0-4) Arterial Blood Methemoglobin 1.0 % (0-2) 0.9 % (0-2) Blood Gas Hemoglobin 9.8 G/DL (12.0-16.0) 9.9 G/DL (12.0-16.0) Oxygen Delivery Device VENTILATOR VENTILATOR Blood Gas Ventilator Setting AC 12/450/5+ 12/450/5PEEP Blood Gas Inspired Oxygen 50 % 50 % Neutrophils (%) (Auto) 80.8 % (16.0-70.0) Lymphocytes (%) (Auto) 8.4 % (9.0-44.0) Monocytes (%) (Auto) 10.7 % (0.0-8.0) Eosinophils (%) (Auto) 0.0 % (0.0-4.0) Basophils (%) (Auto) 0.1 % (0.0-2.0) Neutrophils # (Auto) 11.8 TH/MM3 (1.8-7.7) Lymphocytes # (Auto) 1.2 TH/MM3 (1.0-4.8) Monocytes # (Auto) 1.6 TH/MM3 (0-0.9) Eosinophils # (Auto) 0.0 TH/MM3 (0-0.4) Basophils # (Auto) 0.0 TH/MM3 (0-0.2) CBC Comment AUTO DIFF Differential Total Cells Counted 100 Neutrophils % (Manual) 91 % (16-70) Lymphocytes % 3 % (9-44) Monocytes % 4 % (0-8) Neutrophils # (Manual) 13.6 TH/MM3 (1.8-7.7) Metamyelocytes 2 % (0-1) Differential Comment FINAL DIFF MANUAL Platelet Estimate LOW (NORMAL) Platelet Morphology Comment NORMAL (NORMAL) Red Cell Morphology Comment NORMAL (NORMAL) Test 06/17/17 06:35 06/17/17 07:38 06/17/17 14:20 06/17/17 20:30 White Blood Count 13.9 TH/MM3 (4.0-11.0) Red Blood Count 3.01 MIL/MM3 (4.00-5.30) Hemoglobin 8.6 GM/DL (11.6-15.3) 7.8 GM/DL (11.6-15.3) 7.6 GM/DL (11.6-15.3) Hematocrit 25.3 % (35.0-46.0) 22.7 % (35.0-46.0) 22.3 % (35.0-46.0) Mean Corpuscular Volume 84.0 FL (80.0-100.0) Mean Corpuscular Hemoglobin 28.6 PG (27.0-34.0) Mean Corpuscular Hemoglobin Concent 34.1 % (32.0-36.0) Red Cell Distribution Width 15.3 % (11.6-17.2) Platelet Count 126 TH/MM3 (150-450) Mean Platelet Volume 8.5 FL (7.0-11.0) Neutrophils (%) (Auto) 72.7 % (16.0-70.0) Lymphocytes (%) (Auto) 12.9 % (9.0-44.0) Monocytes (%) (Auto) 13.8 % (0.0-8.0) Eosinophils (%) (Auto) 0.4 % (0.0-4.0) Basophils (%) (Auto) 0.2 % (0.0-2.0) Neutrophils # (Auto) 10.1 TH/MM3 (1.8-7.7) Lymphocytes # (Auto) 1.8 TH/MM3 (1.0-4.8) Monocytes # (Auto) 1.9 TH/MM3 (0-0.9) Eosinophils # (Auto) 0.1 TH/MM3 (0-0.4) Basophils # (Auto) 0.0 TH/MM3 (0-0.2) CBC Comment AUTO DIFF Differential Total Cells Counted 100 Neutrophils % (Manual) 75 % (16-70) Band Neutrophils % 5 % (0-6) Lymphocytes % 7 % (9-44) Monocytes % 11 % (0-8) Neutrophils # (Manual) 11.4 TH/MM3 (1.8-7.7) Metamyelocytes 2 % (0-1) Nucleated Red Blood Cells 1 /100 WBC (0-0) Differential Comment FINAL DIFF MANUAL Platelet Estimate LOW (NORMAL) Platelet Morphology Comment NORMAL (NORMAL) Ovalocytes 1+ (NORMAL) Blood Urea Nitrogen 86 MG/DL (7-18) Creatinine 2.76 MG/DL (0.50-1.00) Random Glucose 150 MG/DL (74-106) Total Protein 4.0 GM/DL (6.4-8.2) Calcium Level 7.3 MG/DL (8.5-10.1) Phosphorus Level 3.7 MG/DL (2.5-4.9) Magnesium Level 2.0 MG/DL (1.5-2.5) Sodium Level 141 MEQ/L (136-145) Potassium Level 4.2 MEQ/L (3.5-5.1) Chloride Level 110 MEQ/L (98-107) Carbon Dioxide Level 21.2 MEQ/L (21.0-32.0) Anion Gap 10 MEQ/L (5-15) Estimat Glomerular Filtration Rate 16 ML/MIN (>89) Protein Corrected Calcium 9.1 MG/DL (8.5-10.1) Blood Gas Puncture Site ART LINE Blood Gas Patient Temperature 98.6 Blood Gas HCO3 18 mmol/L (22-26) Blood Gas Base Excess -5.2 mmol/L (-2-2) Blood Gas Oxygen Saturation 97 % (90-100) Arterial Blood pH 7.45 (7.380-7.420) Arterial Blood Partial Pressure CO2 27 mmHg (38-42) Arterial Blood Partial Pressure O2 166 mmHg (61-120) Arterial Blood Oxygen Content 12.2 Vol % (12.0-20.0) Arterial Blood Carboxyhemoglobin 1.1 % (0-4) Arterial Blood Methemoglobin 0.9 % (0-2) Blood Gas Hemoglobin 8.6 G/DL (12.0-16.0) Oxygen Delivery Device VENTILATOR Blood Gas Ventilator Setting AC/12/450/PEEP5 Blood Gas Inspired Oxygen 40 % Test 06/18/17 00:45 06/18/17 05:30 06/18/17 05:40 06/18/17 16:00 Hemoglobin 7.4 GM/DL (11.6-15.3) 7.0 GM/DL (11.6-15.3) Hematocrit 21.7 % (35.0-46.0) 20.7 % (35.0-46.0) White Blood Count 16.8 TH/MM3 (4.0-11.0) Red Blood Count 2.41 MIL/MM3 (4.00-5.30) Mean Corpuscular Volume 85.8 FL (80.0-100.0) Mean Corpuscular Hemoglobin 29.2 PG (27.0-34.0) Mean Corpuscular Hemoglobin Concent 34.0 % (32.0-36.0) Red Cell Distribution Width 16.0 % (11.6-17.2) Platelet Count 123 TH/MM3 (150-450) Mean Platelet Volume 8.1 FL (7.0-11.0) Blood Urea Nitrogen 72 MG/DL (7-18) Creatinine 2.57 MG/DL (0.50-1.00) Random Glucose 170 MG/DL (74-106) Total Protein 4.1 GM/DL (6.4-8.2) Calcium Level 7.4 MG/DL (8.5-10.1) Phosphorus Level 2.7 MG/DL (2.5-4.9) Magnesium Level 1.8 MG/DL (1.5-2.5) Sodium Level 141 MEQ/L (136-145) Potassium Level 3.6 MEQ/L (3.5-5.1) Chloride Level 111 MEQ/L (98-107) Carbon Dioxide Level 19.1 MEQ/L (21.0-32.0) Anion Gap 11 MEQ/L (5-15) Estimat Glomerular Filtration Rate 18 ML/MIN (>89) Protein Corrected Calcium 9.2 MG/DL (8.5-10.1) Blood Gas Puncture Site ART LINE Blood Gas Patient Temperature 98.6 Blood Gas HCO3 16 mmol/L (22-26) Blood Gas Base Excess -8.6 mmol/L (-2-2) Blood Gas Oxygen Saturation 98 % (90-100) Arterial Blood pH 7.37 (7.380-7.420) Arterial Blood Partial Pressure CO2 28 mmHg (38-42) Arterial Blood Partial Pressure O2 179 mmHG (61-120) Arterial Blood Oxygen Content 13.7 Vol % (12.0-20.0) Arterial Blood Carboxyhemoglobin 0.6 % (0-4) Arterial Blood Methemoglobin 0.8 % (0-2) Blood Gas Hemoglobin 9.7 G/DL (12.0-16.0) Oxygen Delivery Device VENTILATOR Blood Gas Ventilator Setting 12/450/IT1.0/5PEEP Blood Gas Inspired Oxygen 40 % Nasal Screen MRSA (PCR) MRSA NOT DETECTED (NOT Test 06/18/17 17:00 06/19/17 05:05 Hemoglobin 7.7 GM/DL (11.6-15.3) 7.2 GM/DL (11.6-15.3) Hematocrit 22.5 % (35.0-46.0) 20.7 % (35.0-46.0) White Blood Count 10.6 TH/MM3 (4.0-11.0) Red Blood Count 2.45 MIL/MM3 (4.00-5.30) Mean Corpuscular Volume 84.5 FL (80.0-100.0) Mean Corpuscular Hemoglobin 29.5 PG (27.0-34.0) Mean Corpuscular Hemoglobin Concent 34.8 % (32.0-36.0) Red Cell Distribution Width 15.5 % (11.6-17.2) Platelet Count 104 TH/MM3 (150-450) Mean Platelet Volume 7.4 FL (7.0-11.0) Blood Urea Nitrogen 62 MG/DL (7-18) Creatinine 2.49 MG/DL (0.50-1.00) Random Glucose 77 MG/DL (74-106) Calcium Level 7.6 MG/DL (8.5-10.1) Phosphorus Level 3.3 MG/DL (2.5-4.9) Magnesium Level 1.8 MG/DL (1.5-2.5) Sodium Level 144 MEQ/L (136-145) Potassium Level 3.5 MEQ/L (3.5-5.1) Chloride Level 114 MEQ/L (98-107) Carbon Dioxide Level 21.4 MEQ/L (21.0-32.0) Anion Gap 9 MEQ/L (5-15) Estimat Glomerular Filtration Rate 18 ML/MIN (>89) Protein Corrected Calcium 9.8 MG/DL (8.5-10.1) Total Protein 4.0 GM/DL (6.4-8.2) . (Concha Lansgton) Result Diagram: 06/19/17 0505 06/19/17 050 Imaging Last 72 hours Impressions Chest X-Ray 06/19/17599 Signed Impressions: Service Date/Time: Monday, June 19, 2017 03:25 - CONCLUSION: No significant change bibasilar consolidation and small effusions. Patient has been extubated. Ebenezer Bejarano MD Chest X-Ray 06/18/17599 Signed Impressions: Service Date/Time: Sunday, June 18, 2017 04:45 - CONCLUSION: Bibasilar consolidation and small effusions again noted. Slight improvement on the left. Ebenezer Bejarano MD Chest X-Ray 06/17/17599 Signed Impressions: Service Date/Time: Saturday, June 17, 2017 04:01 - CONCLUSION: 1. Mild basilar airspace disease. No pneumothorax. Support apparatus in good position. Tristan Romero MD (Concha Langston) Patient/Family Conference Family Conference Location: Bedside Issues Discussed: * Palliative care role, purpose, approach * Additional medical, psychosocial, and spiritual history * Patients general health, functional status, and cognitive changes in the months leading up to the current hospitalization * Patient/family understanding of the current medical problems * Patients goals of care as best understood from advance directives and/or conversations and/or values * Code status * Current medical treatment options and benefits/burdens of those options * Questions answered to the best of my ability * Palliative care contact information provided (Concha Langston) Assessment and Plan Disease Oriented Problem List: (1) GI (gastrointestinal bleed) (2) Esophagitis (3) Syncope (4) Pneumonia, aspiration Symptom Scale: (1) Nausea Pertinent Non-Medical Issues Psychosocial: Spiritual: Yazidism. Legal: None known. Ethical issues impacting care: None known. . Important Contacts Kaela Nash (daughter): [phone] . Prognosis Prior to this hospitalization the patient was independent in all her ADLs and was able to ride her bicycle 3 miles approximately 3 times a week. The patient has been relatively healthy leading up to this hospitalization considering her advanced age. During this hospitalization she unfortunately had complications associated with an upper GI bleed and required mechanical ventilation. Due to her advanced age she is at risk for further set backs and complications. . Code Status: Full Code Plan * Legal decision maker: Patient currently capacitated to make her own decisions. She has previously completed written advanced directives and designated her daughter Kaela Nash as her HCS. Family will bring in a copy of written advanced directives tomorrow. * CODE STATUS: FULL CODE * GOALS:Aggressive. Discussed patient's current clinical status, documented care wishes from previously completed written advanced directives, and code status. Patient states she would like to remain a full code and is amenable to reintubation/CPR if necessary. Patient states she would not want to be maintained on artificial life support for an extended period of time or if there was no chance of a meaningful recovery. * SYMPTOM MANAGEMENT: --debility: Secondary to current bedbound status, recent extubation. Patient extubated yesterday afternoon. PT consulted and working with patient as appropriate. No recommendations at this time. --nausea: Patient reports no nausea or vomiting at this time. Ondansetron 4mg q 6 prn last dose 06/16/17, sucralfate 1gm ACHS PO ordered. No recommendations at this time. --malnutrition: Secondary to current clinical status, patient also reports decreased appetite and weight loss over the past year. Total protein:6.3, albumin:3.3 on 06/12. Patient could benefit from a meal supplement such as Nepro. Palliative care will continue to follow during hospital course as condition evolves, to assist patient/decision maker with understanding of medical conditions, weighing benefits/burdens of treatment options for clarification of goals of treatment. Additionally will assist with any symptoms of palliative concern. (Concha Langston) Thank you for the opportunity to participate in the care of Ms. Gaines. (Concha Langston) Attestation To help prompt me to consider important information that might be impacting today's encounter and assessment, information from prior notes written by myself or my colleagues may have been "brought forward" into today's note. My signature on this note, however, is an attestation that I personally performed the exam, history, and/or decision-making noted today, and, unless otherwise indicated, the interactions with patient, family, and staff as well as the review of records all occurred today. I also attest that the listed assessment and stated plan reflect my best clinical judgment today based on the combination of historical information, prior notes, and today's exam/ interactions. When time spent is documented, it refers only to time spent today by the signer, or if indicated, combined time spent today by collaborating physician/nurse practitioner. (Concha Langston) Collaborating MD Comments Chart reviewed. Case discussed with palliative care TALENT ACQUISITION LEAD. Above TALENT ACQUISITION LEAD note reviewed and I concur. . (Miah Calderón MD) Concha Langston Jun 19, 2017 11:59 Miah Calderón MD Jun 24, 2017 15:47
[2017-06-19 17:05] LABS: HEMATOCRIT 22.4 % (35.0-46.0); REVIEW FLAG FINAL
[2017-06-20] VITALS (15 sets, daily range): BP systolic 122–151; BP diastolic 58–72; PULSE 80–106; RESP 14–20; TEMP 97.4–98.3; O2SAT 98–100
[2017-06-20] MEDS: RESP: ALBUTEROL 2.5 MG/IPRATROPIUM 0.5 MG NEB (SCH) NEB ×4 (03:03→19:43)
[2017-06-20] MEDS: CHLORHEXIDINE GLUCONATE 2 % 1 PACK (2 CLOTHS) TOP SCH (04:00)
[2017-06-20 05:42] LABS: AUTOMATED NEUTROPHIL # 6.1 TH/MM3 (1.8-7.7); BASOPHIL % 0.3 % (0.0-2.0); EOSINOPHIL # 0.1 TH/MM3 (0-0.4); HEMATOCRIT 22.4 % (35.0-46.0); LYMPH % 8.6 % (9.0-44.0); LYMPHOCYTE # 0.7 TH/MM3 (1.0-4.8); MEAN CELL VOLUME 85.1 FL (80.0-100.0); MONO % 12.6 % (0.0-8.0); NEUT % 77.5 % (16.0-70.0); PLATELET COUNT 110 TH/MM3 (150-450); RED BLOOD COUNT 2.64 MIL/MM3 (4.00-5.30); RED CELL DISTRIBUTION WIDTH 15.5 % (11.6-17.2); WHITE BLOOD COUNT 7.9 TH/MM3 (4.0-11.0)
[2017-06-20 05:45] LABS: HEMO FLAGS AUTO DIFF
[2017-06-20 05:53] LABS: PROTHROMBIN TIME - PATIENT 11.2 SEC (9.8-11.6)
[2017-06-20 06:04] LABS: POTASSIUM 3.4 MEQ/L (3.5-5.1)
[2017-06-20] MEDS: INSULIN ASPART SUPPLEMENTAL SCALE SQ SCH ×4 (08:00→21:00)
[2017-06-20] MEDS: CHLORHEXIDINE 0.12% (ORAL KIT) 15 ML CUP MT SCH ×2 (08:00→20:00)
[2017-06-20] MEDS: SUCRALFATE 1 GM/10 ML CUP PO SCH ×4 (08:43→21:29)
[2017-06-20] MEDS: ATORVASTATIN 40 MG TAB PO SCH (08:43)
[2017-06-20] MEDS: AZTREONAM INJ 500 MG in SODIUM CHLORIDE 0.9% INJ 100 ML IV SCH ×2 (08:43→17:01)
[2017-06-20] MEDS: ACYCLOVIR 800 MG TAB PO SCH ×2 (08:43→21:29)
[2017-06-20] MEDS: METOPROLOL TARTRATE 25 MG TAB PO SCH ×2 (08:43→21:00)
[2017-06-20] MEDS: DOCUSATE SODIUM 50 MG/SENNA 8.6 MG TAB PO SCH ×2 (08:43→21:29)
--- NOTE | 2017-06-20 08:43 | HHI.PR ---
Subjective Remarks doing well. gennaro food. eager to get oob Objective Vitals heart reg lung cta abd s/nt ext no edema Vital Signs Date Time Temp Pulse Resp B/P (MAP) Pulse Ox O2 Delivery O2 Flow Rate FiO2 06/20/17 07:38 98 Nasal Cannula 2.00 06/20/17 06:00 91 06/20/17 04:00 95 06/20/17 04:00 98.3 95 17 122/58 (79) 98 06/20/17 03:05 98 Nasal Cannula 2.00 06/20/17 02:00 96 06/20/17 00:00 80 06/20/17 00:00 98.0 81 15 124/60 (81) 98 06/19/17 22:00 83 06/19/17 20:00 85 06/19/17 20:00 98.3 85 21 158/69 (98) 96 06/19/17 19:37 100 Nasal Cannula 2.00 06/19/17 18:00 87 06/19/17 16:00 89 06/19/17 16:00 98.1 89 15 115/58 (77) 99 06/19/17 14:00 92 06/19/17 12:00 93 06/19/17 12:00 97.9 93 15 118/57 (77) 99 06/19/17 11:03 98.0 95 14 103/54 100 06/19/17 10:05 97.9 103 14 110/55 100 06/19/17 10:00 103 06/19/17 09:47 98.1 110 14 119/56 100 Result Diagram: 06/20/17 0515 06/20/17 0520 Imaging Last Impressions Carotid Artery Ultrasound 06/14/17 0000 Signed Impressions: Service Date/Time: May 10:15 - CONCLUSION: Elevated peak systolic velocity of the proximal left internal carotid artery indicating possible high-grade stenosis. Recommend CTA carotids for further evaluation. Elevated right external carotid peak systolic velocity also noted. Jim Marrero MD Chest X-Ray 06/13/17 0000 Signed Impressions: Service Date/Time: Tuesday, June 13, 2017 12:50 - CONCLUSION: 1. Bibasilar parenchymal change worse on the right. This could be an early inflammatory process. 2. PA and lateral chest is suggested to follow. Charly Maldonado MD FACR Head CT 06/12/171912 Signed Impressions: Service Date/Time: Monday, June 12, 2017 19:45 - CONCLUSION: Negative noncontrast head CT. Ebenezer Bejarano MD Last Impressions Chest X-Ray 06/13/17 0000 Signed Impressions: Service Date/Time: Tuesday, June 13, 2017 12:50 - CONCLUSION: 1. Bibasilar parenchymal change worse on the right. This could be an early inflammatory process. 2. PA and lateral chest is suggested to follow. Charly Maldonado MD FACR Head CT 06/12/171912 Signed Impressions: Service Date/Time: Monday, June 12, 2017 19:45 - CONCLUSION: Negative noncontrast head CT. Ebenezer Bejarano MD Last Impressions Head CT 06/12/171912 Signed Impressions: Service Date/Time: Monday, June 12, 2017 19:45 - CONCLUSION: Negative noncontrast head CT. Ebenezer Bejarano MD Chest X-Ray 06/12/171912 Signed Impressions: Service Date/Time: Monday, June 12, 2017 20:00 - CONCLUSION: No evidence of acute cardiopulmonary disease. Ebenezer Bejarano MD Date of Insertion: Jun 16, 2017 Line: Central Venous Catheter Side: Right Location: Internal, Jugular A/P Problem List: (1) GI (gastrointestinal bleed) ICD Codes: K92.2 - Gastrointestinal hemorrhage, unspecified Status: Acute Plan: 1. ugib. acute blood loss anemia. severe esophagitis 2. aspiration pneumonia 3. afib/rvr 4. a/ckd 4 5. hypovolemic shock from blood loss 6. shingles right chest tolerating po increase PT and oob transfer to med/surg iv ppi cont abx/antivirals. ID following bp meds on hold cont bb for afib. (2) Pneumonia, aspiration ICD Codes: J69.0 - Pneumonitis due to inhalation of food and vomit Status: Acute Plan: Clinically improving. Likely occurred due to emesis when she had the syncopal episode. We'll continue Levaquin and Azactam. No longer on metronidazole. Infectious disease input appreciated. (3) Anemia ICD Codes: D64.9 - Anemia, unspecified Status: Acute Plan: Hemoglobin is relatively stable. Likely multifactorial associated with chronic kidney disease stage IV as well as the significant esophagitis and gastritis as noted. We'll continue to monitor. Vitals are stable. Can be followed further as outpatient. May benefit from Epogen as an outpatient. (4) Shingles ICD Codes: B02.9 - Zoster without complications Status: Acute Plan: Continue current therapy. Gabapentin has been discontinued. Pain seems relatively well controlled. (5) Esophagitis ICD Codes: K20.9 - Esophagitis, unspecified Status: Acute (6) Hypertension ICD Codes: I10 - Essential (primary) hypertension Status: Chronic Plan: Well-controlled. Continue current therapy. (7) CKD (chronic kidney disease) stage 4, GFR 15-29 ml/min ICD Codes: N18.4 - Chronic kidney disease, stage 4 (severe) Status: Chronic Plan: Renal indices improved a bit. Similar to her baseline. Continue to monitor. (8) GERD (gastroesophageal reflux disease) ICD Codes: K21.9 - Gastro-esophageal reflux disease without esophagitis Status: Chronic Plan: EGD revealed severe esophagitis, gastritis and duodenitis. Biopsies are pending. Continue Protonix. We'll add Carafate. 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
[2017-06-20] MEDS: SODIUM CHLORIDE 0.9% FLUSH 10 ML FLUSH IV FLUSH SCH ×2 (08:44→21:00)
[2017-06-20] MEDS ORDERED: POTASSIUM CHLORIDE 20 MEQ CONTROLLED RELEASE TAB PO ONE (08:45)
[2017-06-20] MEDS: PANTOPRAZOLE SODIUM 40 MG VIAL IV PUSH SCH ×2 (09:03→21:29)
[2017-06-20 10:27] LABS: PLATELET ESTIMATE SMEAR LOW (NORMAL); PLATELET MORPHOLOGY NORMAL (NORMAL); SCAN/DIFF AUTO DIFF CONFIRMED
--- NOTE | 2017-06-20 12:16 | HHI.HCPN ---
Reason for visit a. To assist with evaluation and management of symptoms including: nausea, debility, malnutrition b. To assist medical decision maker(s) with: better understanding of current medical conditions; weighing benefits/burdens of medical treatment options; making medical treatment decisions. . Subjective/Interval History Patient examined, family at bedside, daughter and two sons. Patient is sitting up in chair, denies any pain, nausea, or shortness of breath. Patient is awake, alert, oriented x3, very pleasant. She endorses her appetite has improved today and today she has ate more than any other day recently. Palliative care was consulted assist with goals of care to provide support/ guidance regarding medical treatment benefit/burden medical treatment options. Family/friend interactions Bedside conversations with patient's daughter and two sons. . Advance Directives Living Will: Copy in medical record Health Care Surrogate: Copy in medical record Advance Directive Specifics Date completed: 11/02/2011. . Health Care Surrogate(s): Daughter Kaela Nash is HCS, Juancarlos Gregg (son) alternate HCS. . Documented care wishes: Standard living will [place], patient indicated she would not want life prolonging measures if she was terminal or in a persistent vegetative state. Objective Vital Signs Date Time Temp Pulse Resp B/P (MAP) Pulse Ox O2 Delivery O2 Flow Rate FiO2 06/20/17 10:00 92 06/20/17 08:00 98 06/20/17 08:00 97.9 106 16 131/63 (85) 99 06/20/17 07:38 98 Nasal Cannula 2.00 06/20/17 06:00 91 06/20/17 04:00 95 06/20/17 04:00 98.3 95 17 122/58 (79) 98 06/20/17 03:05 98 Nasal Cannula 2.00 06/20/17 02:00 96 06/20/17 00:00 80 06/20/17 00:00 98.0 81 15 124/60 (81) 98 06/19/17 22:00 83 06/19/17 20:00 85 06/19/17 20:00 98.3 85 21 158/69 (98) 96 06/19/17 19:37 100 Nasal Cannula 2.00 06/19/17 18:00 87 06/19/17 16:00 89 06/19/17 16:00 98.1 89 15 115/58 (77) 99 06/19/17 14:00 92 Intake & Output 06/20/17 06/20/17 07:00 19:00 Intake Total 120 ml Balance 120 ml Intake Oral 120 ml # Voids 4 Physical Exam CONSTITUTIONAL/GENERAL: This is an elderly female patient, in no apparent distress, awake and alert, very pleasant. TUBES/LINES/DRAINS: PIV x 2, CVL RIJ SKIN: No jaundice, rashes, or lesions. Ecchymoses on upper extremities. No wounds seen anteriorly. Skin temperature appropriate. Not diaphoretic. EYES: Pupils equal and round and reactive. Extraocular motions intact. No scleral icterus. No injection or drainage. Fundi not examined. ENT: Hearing grossly normal. Nose without bleeding or purulent drainage. CARDIOVASCULAR: Regular rate and rhythm without murmurs, gallops, or rubs. No JVD. Peripheral pulses symmetric. RESPIRATORY/CHEST: Symmetric, unlabored respirations. Clear to auscultation. Breath sounds equal bilaterally. No wheezes, rales, or rhonchi. GASTROINTESTINAL: Abdomen soft, non-tender, nondistended. No guarding. Bowel sounds present. GENITOURINARY: Without palpable bladder distension. MUSCULOSKELETAL: Extremities without clubbing or cyanosis. 2+ edema in BUE. No mottling or clubbing. NEUROLOGICAL: Awake and alert. Motor and sensory grossly within normal limits. Follows commands. Cognitively sharp. Moves all extremities. PSYCHIATRIC: No obvious anxiety/depression. no apparent hallucinations or other psychotic thought process. . Diagnostic Tests Laboratory Laboratory Tests Test 06/17/17 14:20 06/17/17 20:30 06/18/17 00:45 06/18/17 05:30 Hemoglobin 7.8 GM/DL (11.6-15.3) 7.6 GM/DL (11.6-15.3) 7.4 GM/DL (11.6-15.3) 7.0 GM/DL (11.6-15.3) Hematocrit 22.7 % (35.0-46.0) 22.3 % (35.0-46.0) 21.7 % (35.0-46.0) 20.7 % (35.0-46.0) White Blood Count 16.8 TH/MM3 (4.0-11.0) Red Blood Count 2.41 MIL/MM3 (4.00-5.30) Mean Corpuscular Volume 85.8 FL (80.0-100.0) Mean Corpuscular Hemoglobin 29.2 PG (27.0-34.0) Mean Corpuscular Hemoglobin Concent 34.0 % (32.0-36.0) Red Cell Distribution Width 16.0 % (11.6-17.2) Platelet Count 123 TH/MM3 (150-450) Mean Platelet Volume 8.1 FL (7.0-11.0) Blood Urea Nitrogen 72 MG/DL (7-18) Creatinine 2.57 MG/DL (0.50-1.00) Random Glucose 170 MG/DL (74-106) Total Protein 4.1 GM/DL (6.4-8.2) Calcium Level 7.4 MG/DL (8.5-10.1) Phosphorus Level 2.7 MG/DL (2.5-4.9) Magnesium Level 1.8 MG/DL (1.5-2.5) Sodium Level 141 MEQ/L (136-145) Potassium Level 3.6 MEQ/L (3.5-5.1) Chloride Level 111 MEQ/L (98-107) Carbon Dioxide Level 19.1 MEQ/L (21.0-32.0) Anion Gap 11 MEQ/L (5-15) Estimat Glomerular Filtration Rate 18 ML/MIN (>89) Protein Corrected Calcium 9.2 MG/DL (8.5-10.1) Test 06/18/17 05:40 06/18/17 16:00 06/18/17 17:00 06/19/17 05:05 Blood Gas Puncture Site ART LINE Blood Gas Patient Temperature 98.6 Blood Gas HCO3 16 mmol/L (22-26) Blood Gas Base Excess -8.6 mmol/L (-2-2) Blood Gas Oxygen Saturation 98 % (90-100) Arterial Blood pH 7.37 (7.380-7.420) Arterial Blood Partial Pressure CO2 28 mmHg (38-42) Arterial Blood Partial Pressure O2 179 mmHG (61-120) Arterial Blood Oxygen Content 13.7 Vol % (12.0-20.0) Arterial Blood Carboxyhemoglobin 0.6 % (0-4) Arterial Blood Methemoglobin 0.8 % (0-2) Blood Gas Hemoglobin 9.7 G/DL (12.0-16.0) Oxygen Delivery Device VENTILATOR Blood Gas Ventilator Setting 12/450/IT1.0/5PEEP Blood Gas Inspired Oxygen 40 % Nasal Screen MRSA (PCR) MRSA NOT DETECTED (NOT Hemoglobin 7.7 GM/DL (11.6-15.3) 7.2 GM/DL (11.6-15.3) Hematocrit 22.5 % (35.0-46.0) 20.7 % (35.0-46.0) White Blood Count 10.6 TH/MM3 (4.0-11.0) Red Blood Count 2.45 MIL/MM3 (4.00-5.30) Mean Corpuscular Volume 84.5 FL (80.0-100.0) Mean Corpuscular Hemoglobin 29.5 PG (27.0-34.0) Mean Corpuscular Hemoglobin Concent 34.8 % (32.0-36.0) Red Cell Distribution Width 15.5 % (11.6-17.2) Platelet Count 104 TH/MM3 (150-450) Mean Platelet Volume 7.4 FL (7.0-11.0) Blood Urea Nitrogen 62 MG/DL (7-18) Creatinine 2.49 MG/DL (0.50-1.00) Random Glucose 77 MG/DL (74-106) Calcium Level 7.6 MG/DL (8.5-10.1) Phosphorus Level 3.3 MG/DL (2.5-4.9) Magnesium Level 1.8 MG/DL (1.5-2.5) Sodium Level 144 MEQ/L (136-145) Potassium Level 3.5 MEQ/L (3.5-5.1) Chloride Level 114 MEQ/L (98-107) Carbon Dioxide Level 21.4 MEQ/L (21.0-32.0) Anion Gap 9 MEQ/L (5-15) Estimat Glomerular Filtration Rate 18 ML/MIN (>89) Protein Corrected Calcium 9.8 MG/DL (8.5-10.1) Total Protein 4.0 GM/DL (6.4-8.2) Test 06/19/17 16:45 06/20/17 05:15 06/20/17 05:20 Hemoglobin 7.6 GM/DL (11.6-15.3) 7.6 GM/DL (11.6-15.3) Hematocrit 22.4 % (35.0-46.0) 22.4 % (35.0-46.0) White Blood Count 7.9 TH/MM3 (4.0-11.0) Red Blood Count 2.64 MIL/MM3 (4.00-5.30) Mean Corpuscular Volume 85.1 FL (80.0-100.0) Mean Corpuscular Hemoglobin 29.0 PG (27.0-34.0) Mean Corpuscular Hemoglobin Concent 34.0 % (32.0-36.0) Red Cell Distribution Width 15.5 % (11.6-17.2) Platelet Count 110 TH/MM3 (150-450) Mean Platelet Volume 7.4 FL (7.0-11.0) Neutrophils (%) (Auto) 77.5 % (16.0-70.0) Lymphocytes (%) (Auto) 8.6 % (9.0-44.0) Monocytes (%) (Auto) 12.6 % (0.0-8.0) Eosinophils (%) (Auto) 1.0 % (0.0-4.0) Basophils (%) (Auto) 0.3 % (0.0-2.0) Neutrophils # (Auto) 6.1 TH/MM3 (1.8-7.7) Lymphocytes # (Auto) 0.7 TH/MM3 (1.0-4.8) Monocytes # (Auto) 1.0 TH/MM3 (0-0.9) Eosinophils # (Auto) 0.1 TH/MM3 (0-0.4) Basophils # (Auto) 0.0 TH/MM3 (0-0.2) CBC Comment AUTO DIFF Differential Comment AUTO DIFF CONFIRMED Platelet Estimate LOW (NORMAL) Platelet Morphology Comment NORMAL (NORMAL) Prothrombin Time 11.2 SEC (9.8-11.6) Prothromb Time International Ratio 1.0 RATIO Blood Urea Nitrogen 51 MG/DL (7-18) Creatinine 2.28 MG/DL (0.50-1.00) Random Glucose 70 MG/DL (74-106) Calcium Level 7.8 MG/DL (8.5-10.1) Phosphorus Level 3.0 MG/DL (2.5-4.9) Magnesium Level 2.0 MG/DL (1.5-2.5) Sodium Level 146 MEQ/L (136-145) Potassium Level 3.4 MEQ/L (3.5-5.1) Chloride Level 115 MEQ/L (98-107) Carbon Dioxide Level 21.0 MEQ/L (21.0-32.0) Anion Gap 10 MEQ/L (5-15) Estimat Glomerular Filtration Rate 20 ML/MIN (>89) Result Diagram: 06/20/17 0515 06/20/17519 Imaging Last 72 hours Impressions Chest X-Ray 06/19/17599 Signed Impressions: Service Date/Time: Monday, June 19, 2017 03:25 - CONCLUSION: No significant change bibasilar consolidation and small effusions. Patient has been extubated. Ebenezer Bejarano MD Chest X-Ray 06/18/17599 Signed Impressions: Service Date/Time: Sunday, June 18, 2017 04:45 - CONCLUSION: Bibasilar consolidation and small effusions again noted. Slight improvement on the left. Ebenezer Bejarano MD Assessment and Plan Disease Oriented Problem List: (1) GI (gastrointestinal bleed) (2) Esophagitis (3) Syncope (4) Pneumonia, aspiration Symptom Scale: (1) Nausea Pertinent Non-Medical Issues Psychosocial: Spiritual: Faith. Legal: None known. Ethical issues impacting care: None known. . Important Contacts Kaela Nash (daughter): [phone] Juancarlos Thomson (son):[phone] . Prognosis Prior to this hospitalization the patient was independent in all her ADLs and was able to ride her bicycle 3 miles approximately 3 times a week. The patient has been relatively healthy leading up to this hospitalization considering her advanced age. During this hospitalization she unfortunately had complications associated with an upper GI bleed and required mechanical ventilation. Due to her advanced age she is at risk for further set backs and complications. . Code Status: Full Code Plan * Legal decision maker: Patient currently capacitated to make her own decisions. She has designated her daughter Kaela Nash as her HCS if she is unable to make any medical decisions on her own. * CODE STATUS: FULL CODE * GOALS:Aggressive. * SYMPTOM MANAGEMENT: --debility: Secondary to current bedbound status, recent extubation. Patient extubated yesterday afternoon. PT consulted and working with patient as appropriate. No recommendations at this time. --nausea: Patient reports no nausea or vomiting at this time. Ondansetron 4mg q 6 prn last dose 06/16/17, sucralfate 1gm ACHS PO ordered. No recommendations at this time. --malnutrition: Secondary to current clinical status, patient also reports decreased appetite and weight loss over the past year. Total protein:6.3, albumin:3.3 on 06/12. Patient could benefit from a meal supplement such as Nepro. Palliative care will continue to follow during hospital course as condition evolves, to assist patient/decision maker with understanding of medical conditions, weighing benefits/burdens of treatment options for clarification of goals of treatment. Additionally will assist with any symptoms of palliative concern. Attestation To help prompt me to consider important information that might be impacting today's encounter and assessment, information from prior notes written by myself or my colleagues may have been "brought forward" into today's note. My signature on this note, however, is an attestation that I personally performed the exam, history, and/or decision-making noted today, and, unless otherwise indicated, the interactions with patient, family, and staff as well as the review of records all occurred today. I also attest that the listed assessment and stated plan reflect my best clinical judgment today based on the combination of historical information, prior notes, and today's exam/ interactions. When time spent is documented, it refers only to time spent today by the signer, or if indicated, combined time spent today by collaborating physician/nurse practitioner. Concha Langston Jun 20, 2017 12:16
--- NOTE | 2017-06-20 14:56 | HHI.PR ---
Addendum to Inpatient Note Additional Information pt seen around 1230 full note to follow On exam OOB in [place] + generalyyses 2+ edema much better dw Lorri Asencio MD Jun 20, 2017 14:56
[2017-06-20] MEDS: LEVOFLOXACIN 250 MG PREMIX INJ 50 ML IV SCH (22:56)
--- NOTE | 2017-06-20 23:18 | HHI.IDPN ---
Subjective Subjective Remarks ID X cover for Dr Kimberly catalan entry pt seen around 1230 pt was transferred to main hospital ICU after she developped GI bleeding sp EGD: esophagitis pt is doing much better clinically afebrile extubated transfererd to floor Antibiotics levaquin azactam zovirax Allergies: Coded Allergies: penicillin G (Unverified Allergy, Mild, Rash, 06/12/17) Objective . Vital Signs Date Time Temp Pulse Resp B/P (MAP) Pulse Ox O2 Delivery O2 Flow Rate FiO2 06/20/17 19:43 100 Nasal Cannula 3.00 06/20/17 18:00 98 06/20/17 16:00 97.4 85 14 151/72 (98) 100 06/20/17 16:00 98 06/20/17 14:00 89 06/20/17 12:00 82 06/20/17 12:00 98.0 82 15 129/59 (82) 100 06/20/17 10:00 92 06/20/17 08:00 98 06/20/17 08:00 97.9 106 16 131/63 (85) 99 06/20/17 07:38 98 Nasal Cannula 2.00 06/20/17 06:00 91 06/20/17 04:00 95 06/20/17 04:00 98.3 95 17 122/58 (79) 98 06/20/17 03:05 98 Nasal Cannula 2.00 06/20/17 02:00 96 06/20/17 00:00 80 06/20/17 00:00 98.0 81 15 124/60 (81) 98 06/20/17 06/20/17 06/21/17 15:00 23:00 07:00 Intake Total 700 ml Output Total 850 ml Balance -150 ml Intake Oral 500 ml IV Total 200 ml Output Urine Total 850 ml # Bowel Movements 2 . Laboratory Tests Test 06/19/17 05:05 06/19/17 16:45 06/20/17 05:15 White Blood Count 10.6 TH/MM3 7.9 TH/MM3 Red Blood Count 2.45 MIL/MM3 2.64 MIL/MM3 Hemoglobin 7.2 GM/DL 7.6 GM/DL 7.6 GM/DL Hematocrit 20.7 % 22.4 % 22.4 % Mean Corpuscular Volume 84.5 FL 85.1 FL Mean Corpuscular Hemoglobin 29.5 PG 29.0 PG Mean Corpuscular Hemoglobin Concent 34.8 % 34.0 % Red Cell Distribution Width 15.5 % 15.5 % Platelet Count 104 TH/MM3 110 TH/MM3 Mean Platelet Volume 7.4 FL 7.4 FL Neutrophils (%) (Auto) 77.5 % Lymphocytes (%) (Auto) 8.6 % Monocytes (%) (Auto) 12.6 % Eosinophils (%) (Auto) 1.0 % Basophils (%) (Auto) 0.3 % Neutrophils # (Auto) 6.1 TH/MM3 Lymphocytes # (Auto) 0.7 TH/MM3 Monocytes # (Auto) 1.0 TH/MM3 Eosinophils # (Auto) 0.1 TH/MM3 Basophils # (Auto) 0.0 TH/MM3 CBC Comment AUTO DIFF Differential Comment AUTO DIFF CONFIRMED Platelet Estimate LOW Platelet Morphology Comment NORMAL Laboratory Tests Test 06/19/17 05:05 06/20/17 05:20 Blood Urea Nitrogen 62 MG/DL 51 MG/DL Creatinine 2.49 MG/DL 2.28 MG/DL Random Glucose 77 MG/DL 70 MG/DL Calcium Level 7.6 MG/DL 7.8 MG/DL Phosphorus Level 3.3 MG/DL 3.0 MG/DL Magnesium Level 1.8 MG/DL 2.0 MG/DL Sodium Level 144 MEQ/L 146 MEQ/L Potassium Level 3.5 MEQ/L 3.4 MEQ/L Chloride Level 114 MEQ/L 115 MEQ/L Carbon Dioxide Level 21.4 MEQ/L 21.0 MEQ/L Anion Gap 9 MEQ/L 10 MEQ/L Estimat Glomerular Filtration Rate 18 ML/MIN 20 ML/MIN Protein Corrected Calcium 9.8 MG/DL Total Protein 4.0 GM/DL Imaging Last Impressions Chest X-Ray 06/19/17 0600 Signed Impressions: Service Date/Time: Monday, June 19, 2017 03:25 - CONCLUSION: No significant change bibasilar consolidation and small effusions. Patient has been extubated. Ebenezer Bejarano MD Neck Magnetic Resonance Angiography 06/15/17 0000 Signed Impressions: Service Date/Time: Thursday, June 15, 2017 11:41 - CONCLUSION: Negative for hemodynamically significant stenosis. Charly Maldonado MD FACR Carotid Artery Ultrasound 06/14/17 0000 Signed Impressions: Service Date/Time: May 10:15 - CONCLUSION: Elevated peak systolic velocity of the proximal left internal carotid artery indicating possible high-grade stenosis. Recommend CTA carotids for further evaluation. Elevated right external carotid peak systolic velocity also noted. Jim Marrero MD Head CT 06/12/171912 Signed Impressions: Service Date/Time: Monday, June 12, 2017 19:45 - CONCLUSION: Negative noncontrast head CT. Ebenezer Bejarano MD Physical Exam GENERAL: OOB in a chair in no acute distress. She is awake, alert and oriented. HEENT: Extraocular movements are grossly intact, pupils reactive to light. No icterus. Oropharynx moist mucosa without lesions. NECK: Supple without adenopathy. LUNGS: scattred bilateral rhonchi at the bases. HEART: Regular S1-S2. 1/6 systolic murmur left sternal border. ABDOMEN: Bowel sounds present, soft, no tenderness. Not distended EXTREMITIES: No clubbing or cyanosis .+ generalysed 2+ edema SKIN: Right chest wall resolving shingles rash.posteriorly and anteriorly NEUROLOGIC: Awakwe and alert. No gross focal findings. RUE tremor, likley essential tremor PSYCH: The patient is calm and cooperative. Assessment & Plan Remarks IMPRESSION 1. Bilateral pneumonia ? aspiration - sp > 7 days of abx 2. Patient status post syncopal episode. 3. Acute on chronic kidney disease: creastinine better 4. R chest shingles - resolving 5. Leukocytosis - resolved 6. Low grade micrococcus bacteremia cw contaminant RECOMMENDATIONS 1. dc Azactam. 2. dc Levaquin. 3 complete 2 weeks of acyclovir 4. Monitor the white blood cell count 5. Monitor the temperature. Lorri Vital RN, MD Jun 20, 2017 23:18
[2017-06-21] VITALS (11 sets, daily range): BP systolic 123–154; BP diastolic 60–70; PULSE 82–96; RESP 16–27; TEMP 97.8–98.8; O2SAT 92–99
[2017-06-21] MEDS: RESP: ALBUTEROL 2.5 MG/IPRATROPIUM 0.5 MG NEB (SCH) NEB ×2 (02:53→08:37)
[2017-06-21] MEDS: CHLORHEXIDINE GLUCONATE 2 % 1 PACK (2 CLOTHS) TOP SCH (04:00)
[2017-06-21] MEDS: INSULIN ASPART SUPPLEMENTAL SCALE SQ SCH ×4 (08:00→20:46)
[2017-06-21] MEDS: CHLORHEXIDINE 0.12% (ORAL KIT) 15 ML CUP MT SCH ×2 (08:00→19:52)
[2017-06-21] MEDS: ACYCLOVIR 800 MG TAB PO SCH ×2 (09:09→20:00)
[2017-06-21] MEDS: PANTOPRAZOLE SODIUM 40 MG VIAL IV PUSH SCH ×2 (09:09→20:01)
[2017-06-21] MEDS: DOCUSATE SODIUM 50 MG/SENNA 8.6 MG TAB PO SCH ×3 (09:09→21:00)
[2017-06-21] MEDS: SODIUM CHLORIDE 0.9% FLUSH 10 ML FLUSH IV FLUSH SCH ×2 (09:10→20:00)
[2017-06-21] MEDS: METOPROLOL TARTRATE 25 MG TAB PO SCH ×2 (09:10→20:00)
[2017-06-21] MEDS: ATORVASTATIN 40 MG TAB PO SCH (09:10)
--- NOTE | 2017-06-21 10:01 | HHI.PR ---
Subjective Remarks no vomiting. a little nauseated earlier with food. no abdomen pain. Objective Vitals heart reg lung c abd s/nt ext no edema Vital Signs Date Time Temp Pulse Resp B/P (MAP) Pulse Ox O2 Delivery O2 Flow Rate FiO2 06/21/17 08:39 98 Nasal Cannula 2.00 06/21/17 06:00 83 06/21/17 04:00 96 06/21/17 04:00 98.1 92 16 154/70 (98) 96 06/21/17 02:00 85 06/21/17 00:00 90 06/21/17 00:00 98.0 93 18 141/65 (90) 99 06/20/17 22:00 92 06/20/17 20:00 98.3 92 20 127/59 (81) 98 06/20/17 20:00 94 06/20/17 19:43 100 Nasal Cannula 3.00 06/20/17 18:00 98 06/20/17 16:00 97.4 85 14 151/72 (98) 100 06/20/17 16:00 98 06/20/17 14:00 89 06/20/17 12:00 82 06/20/17 12:00 98.0 82 15 129/59 (82) 100 06/20/17 10:00 92 Result Diagram: 06/20/17 0515 06/20/17 0520 Imaging Last Impressions Carotid Artery Ultrasound 06/14/17 0000 Signed Impressions: Service Date/Time: May 10:15 - CONCLUSION: Elevated peak systolic velocity of the proximal left internal carotid artery indicating possible high-grade stenosis. Recommend CTA carotids for further evaluation. Elevated right external carotid peak systolic velocity also noted. Jim Marrero MD Chest X-Ray 06/13/17 0000 Signed Impressions: Service Date/Time: Tuesday, June 13, 2017 12:50 - CONCLUSION: 1. Bibasilar parenchymal change worse on the right. This could be an early inflammatory process. 2. PA and lateral chest is suggested to follow. Charly Maldonado MD FACR Head CT 06/12/17 1913 Signed Impressions: Service Date/Time: Monday, June 12, 2017 19:45 - CONCLUSION: Negative noncontrast head CT. Ebenezer Bejarano MD Last Impressions Chest X-Ray 06/13/17 0000 Signed Impressions: Service Date/Time: Tuesday, June 13, 2017 12:50 - CONCLUSION: 1. Bibasilar parenchymal change worse on the right. This could be an early inflammatory process. 2. PA and lateral chest is suggested to follow. Charly Maldonado MD FACR Head CT 06/12/171912 Signed Impressions: Service Date/Time: Monday, June 12, 2017 19:45 - CONCLUSION: Negative noncontrast head CT. Ebenezer Bejarano MD Last Impressions Head CT 06/12/171912 Signed Impressions: Service Date/Time: Monday, June 12, 2017 19:45 - CONCLUSION: Negative noncontrast head CT. Ebenezer Bejarano MD Chest X-Ray 06/12/171912 Signed Impressions: Service Date/Time: Monday, June 12, 2017 20:00 - CONCLUSION: No evidence of acute cardiopulmonary disease. Ebenezer Bejarano MD Date of Insertion: Jun 16, 2017 Line: Central Venous Catheter Side: Right Location: Internal, Jugular A/P Problem List: (1) GI (gastrointestinal bleed) ICD Codes: K92.2 - Gastrointestinal hemorrhage, unspecified Status: Acute Plan: 1. ugib. acute blood loss anemia. severe esophagitis 2. aspiration pneumonia 3. afib/rvr...currently nsr 4. a/ckd 4 5. hypovolemic shock from blood loss 6. shingles right chest 7. htn. mild elevation today. tolerating po increase PT and oob transfer to med/surg pending repeat bmp pending. iv ppi abx stopped for pna cont antivirals bp meds on hold. resume as needed cont bb for afib. family to decide snf vs hhc/pt (2) Pneumonia, aspiration ICD Codes: J69.0 - Pneumonitis due to inhalation of food and vomit Status: Acute Plan: Clinically improving. Likely occurred due to emesis when she had the syncopal episode. We'll continue Levaquin and Azactam. No longer on metronidazole. Infectious disease input appreciated. (3) Anemia ICD Codes: D64.9 - Anemia, unspecified Status: Acute Plan: Hemoglobin is relatively stable. Likely multifactorial associated with chronic kidney disease stage IV as well as the significant esophagitis and gastritis as noted. We'll continue to monitor. Vitals are stable. Can be followed further as outpatient. May benefit from Epogen as an outpatient. (4) Shingles ICD Codes: B02.9 - Zoster without complications Status: Acute Plan: Continue current therapy. Gabapentin has been discontinued. Pain seems relatively well controlled. (5) Esophagitis ICD Codes: K20.9 - Esophagitis, unspecified Status: Acute (6) Hypertension ICD Codes: I10 - Essential (primary) hypertension Status: Chronic Plan: Well-controlled. Continue current therapy. (7) CKD (chronic kidney disease) stage 4, GFR 15-29 ml/min ICD Codes: N18.4 - Chronic kidney disease, stage 4 (severe) Status: Chronic Plan: Renal indices improved a bit. Similar to her baseline. Continue to monitor. (8) GERD (gastroesophageal reflux disease) ICD Codes: K21.9 - Gastro-esophageal reflux disease without esophagitis Status: Chronic Plan: EGD revealed severe esophagitis, gastritis and duodenitis. Biopsies are pending. Continue Protonix. We'll add Carafate. Problem Qualifiers (1) Pneumonia, aspiration: (2) Anemia: Qualified Codes: N18.4 - Chronic kidney disease, stage 4 (severe); D63.1 - Anemia in chronic kidney disease (3) Hypertension: Qualified Codes: I10 - Essential (primary) hypertension (4) GERD (gastroesophageal reflux disease): Qualified Codes: K21.0 - Gastro-esophageal reflux disease with esophagitis Daniel Borrero MD Jun 21, 2017 10:01
[2017-06-21] MEDS ORDERED: PILL SPLITTER OTHER PRN (11:15)
[2017-06-21] MEDS ORDERED: amLODIPine BESYLATE 5 MG TAB PO ONE (12:00)
[2017-06-21] MEDS: SUCRALFATE 1 GM/10 ML CUP PO SCH ×4 (12:00→20:00)
[2017-06-21 22:15] LABS: BICARBONATE 23.4 MEQ/L (21.0-32.0); POTASSIUM 3.8 MEQ/L (3.5-5.1)
[2017-06-22] VITALS (9 sets, daily range): BP systolic 113–148; BP diastolic 57–77; PULSE 74–86; RESP 16–18; TEMP 96.5–98.3; O2SAT 92–100
[2017-06-22] MEDS: CHLORHEXIDINE GLUCONATE 2 % 1 PACK (2 CLOTHS) TOP SCH ×2 (04:00→23:47)
[2017-06-22] MEDS: CHLORHEXIDINE 0.12% (ORAL KIT) 15 ML CUP MT SCH ×2 (08:00→21:52)
[2017-06-22] MEDS: INSULIN ASPART SUPPLEMENTAL SCALE SQ SCH ×4 (08:00→21:52)
[2017-06-22] MEDS: DOCUSATE SODIUM 50 MG/SENNA 8.6 MG TAB PO SCH ×2 (09:00→21:52)
[2017-06-22] MEDS: SODIUM CHLORIDE 0.9% FLUSH 10 ML FLUSH IV FLUSH SCH ×2 (09:14→21:52)
[2017-06-22] MEDS: METOPROLOL TARTRATE 25 MG TAB PO SCH ×2 (09:14→21:51)
[2017-06-22] MEDS: ACYCLOVIR 800 MG TAB PO SCH ×2 (09:14→21:52)
[2017-06-22] MEDS: PANTOPRAZOLE SODIUM 40 MG VIAL IV PUSH SCH ×2 (09:14→21:51)
[2017-06-22] MEDS: amLODIPine BESYLATE 5 MG TAB PO SCH (09:14)
[2017-06-22] MEDS: ATORVASTATIN 40 MG TAB PO SCH (09:15)
[2017-06-22] MEDS: SUCRALFATE 1 GM/10 ML CUP PO SCH ×4 (09:17→21:51)
--- NOTE | 2017-06-22 14:18 | HHI.PR ---
Subjective Remarks Pt complains of loose stools the last two days, 3 BMs yesterday and two so far today No reported melena or BRBPR Denies any abd pain. Pt with poor appetite and is not eating much Objective Vitals Vital Signs Date Time Temp Pulse Resp B/P (MAP) Pulse Ox O2 Delivery O2 Flow Rate FiO2 06/22/17 10:23 100 06/22/17 08:00 97.4 74 18 138/69 (92) 100 06/22/17 04:00 98.2 82 16 148/74 (98) 98 06/22/17 04:00 98.2 82 16 148/74 (98) 98 06/22/17 00:00 97.3 81 17 141/77 (98) 96 06/21/17 21:51 98.8 82 16 127/67 (87) 92 06/21/17 20:00 98.3 94 16 142/66 (91) 95 06/21/17 20:00 86 06/21/17 19:50 93 Nasal Cannula 2.00 06/21/17 16:00 84 06/21/17 16:00 98.4 85 21 142/67 (92) 94 Result Diagram: 06/20/17 0515 06/21/172039 Other Results Laboratory Tests Test 06/21/17 20:40 Blood Urea Nitrogen 40 MG/DL Creatinine 2.02 MG/DL Random Glucose 127 MG/DL Calcium Level 8.3 MG/DL Sodium Level 144 MEQ/L Potassium Level 3.8 MEQ/L Chloride Level 114 MEQ/L Carbon Dioxide Level 23.4 MEQ/L Anion Gap 7 MEQ/L Estimat Glomerular Filtration Rate 23 ML/MIN Imaging Last Impressions Chest X-Ray 06/19/17 0600 Signed Impressions: Service Date/Time: Monday, June 19, 2017 03:25 - CONCLUSION: No significant change bibasilar consolidation and small effusions. Patient has been extubated. Ebenezer Bejarano MD Neck Magnetic Resonance Angiography 06/15/17 0000 Signed Impressions: Service Date/Time: Thursday, June 15, 2017 11:41 - CONCLUSION: Negative for hemodynamically significant stenosis. Charly Maldonado MD FACR Carotid Artery Ultrasound 06/14/17 0000 Signed Impressions: Service Date/Time: May 10:15 - CONCLUSION: Elevated peak systolic velocity of the proximal left internal carotid artery indicating possible high-grade stenosis. Recommend CTA carotids for further evaluation. Elevated right external carotid peak systolic velocity also noted. Jim Marrero MD Head CT 06/12/171912 Signed Impressions: Service Date/Time: Monday, June 12, 2017 19:45 - CONCLUSION: Negative noncontrast head CT. Ebenezer Bejarano MD Last Impressions Carotid Artery Ultrasound 06/14/17 0000 Signed Impressions: Service Date/Time: May 10:15 - CONCLUSION: Elevated peak systolic velocity of the proximal left internal carotid artery indicating possible high-grade stenosis. Recommend CTA carotids for further evaluation. Elevated right external carotid peak systolic velocity also noted. Jim Marrero MD Chest X-Ray 06/13/17 Signed Impressions: Service Date/Time: Tuesday, June 13, 2017 12:50 - CONCLUSION: 1. Bibasilar parenchymal change worse on the right. This could be an early inflammatory process. 2. PA and lateral chest is suggested to follow. Charly Maldonado MD FACR Head CT 06/12/171912 Signed Impressions: Service Date/Time: Monday, June 12, 2017 19:45 - CONCLUSION: Negative noncontrast head CT. Ebenezer Bejarano MD Last Impressions Chest X-Ray 06/13/17 0000 Signed Impressions: Service Date/Time: Tuesday, June 13, 2017 12:50 - CONCLUSION: 1. Bibasilar parenchymal change worse on the right. This could be an early inflammatory process. 2. PA and lateral chest is suggested to follow. Charly Maldonado MD FACR Head CT 06/12/171912 Signed Impressions: Service Date/Time: Monday, June 12, 2017 19:45 - CONCLUSION: Negative noncontrast head CT. Ebenezer Bejarano MD Last Impressions Head CT 06/12/171912 Signed Impressions: Service Date/Time: Monday, June 12, 2017 19:45 - CONCLUSION: Negative noncontrast head CT. Ebenezer Bejarano MD Chest X-Ray 06/12/171912 Signed Impressions: Service Date/Time: Monday, June 12, 2017 20:00 - CONCLUSION: No evidence of acute cardiopulmonary disease. Ebenezer Bejarano MD Objective Remarks General: NAD, AAOx3 Chest: CTA Cardiac: Regular Abd: +BS, soft ND/NT Ext: No edema Date of Insertion: Jun 16, 2017 Line: Central Venous Catheter Side: Right Location: Internal, Jugular A/P Problem List: (1) GI (gastrointestinal bleed) ICD Codes: K92.2 - Gastrointestinal hemorrhage, unspecified Status: Acute Plan: - Pt is an 87 y/o female that presented to the ED on 06/12/17 for evaluation of syncopal episode. - On 06/07/17 he was diagnosed with shingles affecting the right trunk and chest wall. Patient was seen by her primary care provider and started on gabapentin and acyclovir. Family has noted since starting the new medications she has been a little confused and off balance. On 06/12/17 the patient was found to be unresponsive sitting upright in her chair. Daughter reported that the pt coughed and then vomited. Patient was brought in to the ED at [facility]. After the episode of vomiting patient had increasing congested cough. - Following admission the patient had hematemesis, gastroenterology was consulted. Pt underwent evaluation with EGD on 06/15/17 which noted severe grade D esophagitis, severe duodenitis and gastritis, and multiple polyps in the body of the stomach one of them removed by snare. On 06/16 she had an episode of hematemesis of approximately 300 cc, PPI was increased. That same day she had subsequent bouts of hematemesis with a significant drop in hemoglobin to 7.0 and hypotension with systolic BP in the 60s70s. Pt was transferred to [facility] with CCM consultation. The patient was transfused 2 units of blood but continued to have hypotensive episodes, and was started on pressors. The patient was intubated for airway protection was noted blood around hypopharynx and epiglottis with confirmation of recent aspiration. - On 06/16/17 the patient underwent repeat EGD which noted Ssvere grade D esophagitis no active bleeding at this point, the stomach is full of clots and old blood most likely this is related to esophagitis - On 06/17 the patient went into A. fib with RVR, and was bolused with amiodarone followed by an amiodarone infusion. The arrhythmia resolved however the patient continued to be hypotensive and was continued on norepinephrine. Pt was transfused with 1 unit packed red blood cells in the setting of A. fib. - She was successfully extubated on 06/18. H/H was still less than 8.0 on 06/19 and she was transfused another 1 unit PRBCs. - BP started improving and stabilizing and BB was initiated on 06/19. - Pt has been tolerating po but not eating much. - She was able to be transferred out of ICU and has remained stable. - Increase PT and OOB - Cont. IV PPI - Pt complained of some diarrhea the last two days, check stools for C. diff. - Pts family at this point is wanting home with HHC/PT at discharge, stressed to the patient and family that she may benefit more from SNF placement for continued aggressive PT but at this point they are not interested. (2) Pneumonia, aspiration ICD Codes: J69.0 - Pneumonitis due to inhalation of food and vomit Status: Acute Plan: - Clinically improving. - Likely occurred due to emesis when she had the syncopal episode. - Levaquin and Azactam discontinued on 06/20 as she completed 7 days per ID - No longer on metronidazole. - Infectious disease input appreciated. (3) Anemia ICD Codes: D64.9 - Anemia, unspecified Status: Chronic Plan: - See above. - Pt with baseline chronic anemia, likely multifactorial associated with chronic kidney disease stage IV and now with acute GIB likely related to her significant esophagitis and gastritis as noted. - We'll continue to monitor. - Vitals are stable. (4) Shingles ICD Codes: B02.9 - Zoster without complications Status: Acute Plan: - Gabapentin has been discontinued. - Pain seems relatively well controlled. - ID has recommended 2 weeks of acyclovir, this was started on 06/07 so the two week treatment course has been completed. (5) Esophagitis ICD Codes: K20.9 - Esophagitis, unspecified Status: Acute Plan: - See above. (6) Hypertension ICD Codes: I10 - Essential (primary) hypertension Status: Chronic Plan: - Well-controlled. - Continue current therapy, Metoprolol and Norvasc (7) CKD (chronic kidney disease) stage 4, GFR 15-29 ml/min ICD Codes: N18.4 - Chronic kidney disease, stage 4 (severe) Status: Chronic Plan: Renal indices improved a bit. Similar to her baseline. Continue to monitor. (8) GERD (gastroesophageal reflux disease) ICD Codes: K21.9 - Gastro-esophageal reflux disease without esophagitis Status: Chronic Plan: - EGD revealed severe esophagitis, gastritis and duodenitis. - Biopsies noted acute esophagitis with ulceration. - Continue Protonix. (9) Syncope ICD Codes: R55 - Syncope and collapse Status: Acute Plan: - Etiology for her syncope is not completely clear at this point, possibly vasovagal syncope as the pt vomited and could have been nauseated prior to syncopal episode but does not remember the event, vs. hypotension related vs. medication effect vs. other. - Pt was seen by Neurology at admission. - Workup during this admission included: - Carotid US (06/14) --> Elevated peak systolic velocity of the proximal left internal carotid artery indicating possible high-grade stenosis. Recommend CTA carotids for further evaluation. Elevated right external carotid peak systolic velocity also noted - MRA Neck (06/15) --> Negative for hemodynamically significant stenosis. - Holter Monitor (06/14) --> Sinus rhythm with frequent episodes of sinus tachycardia up to 133bpm, no significant bradycardia was noted, rare PVCs and PACs which were unifocal. Assessment and Plan Patient examined. Assessment and plan formulated with Iveth Roman PA-C. I agree with the above. 1. ugib. acute blood loss anemia. severe esophagitis 2. aspiration pneumonia 3. afib/rvr...currently nsr 4. a/ckd 4 5. hypovolemic shock from blood loss 6. shingles right chest 7. htn. 8. abnormal u/s with carotid stenosis but mra negative 9. diarrhea. add back bp meds slowly as needed. avoid hypotension. send stool for c diff. if neg then immodium offered blood transfusion if symptomatic. pt not interested ensure family updated at length. refusing snf. they will go home this weekend with hhc/pt Problem Qualifiers (1) Pneumonia, aspiration: (2) Anemia: Qualified Codes: N18.4 - Chronic kidney disease, stage 4 (severe); D63.1 - Anemia in chronic kidney disease (3) Hypertension: Qualified Codes: I10 - Essential (primary) hypertension (4) GERD (gastroesophageal reflux disease): Qualified Codes: K21.0 - Gastro-esophageal reflux disease with esophagitis (5) Syncope: Qualified Codes: R55 - Syncope and collapse Iveth Roman Jun 22, 2017 14:18 Daniel Borrero MD Jun 22, 2017 16:03
--- NOTE | 2017-06-22 14:28 | HHI.HCPN ---
Reason for visit a. To assist with evaluation and management of symptoms including: nausea, debility, malnutrition b. To assist medical decision maker(s) with: better understanding of current medical conditions; weighing benefits/burdens of medical treatment options; making medical treatment decisions. . Subjective/Interval History Patient examined, sitting up in the chair, daughter and son in room during exam , updated accordingly. Patient is denies any pain, nausea, or shortness of breath. Patient is awake, alert, oriented x3, very pleasant. Patient states her appetite has not improved since our last encounter, she states she is looking forward to discharge and being able to eat food other than hospital food. Last available laboratory data from06/20: Hgb:7.6, Hct:22.4 (stable from previous values). 06/21: BUN:40, creatinine:2.02, eGFR:23 slightly improved from previous values. No new imaging available. Advance Directives Living Will: Copy in medical record Health Care Surrogate: Copy in medical record Advance Directive Specifics Date completed: 11/02/2011. . Health Care Surrogate(s): Daughter Kaela Nash is HCS, Juancarlos Gregg (son) alternate HCS. . Documented care wishes: Standard living will verbiage, patient indicated she would not want life prolonging measures if she was terminal or in a persistent vegetative state. Objective Vital Signs Date Time Temp Pulse Resp B/P (MAP) Pulse Ox O2 Delivery O2 Flow Rate FiO2 06/22/17 12:00 97.0 75 18 113/64 (80) 93 06/22/17 10:23 100 06/22/17 08:00 97.4 74 18 138/69 (92) 100 06/22/17 04:00 98.2 82 16 148/74 (98) 98 06/22/17 04:00 98.2 82 16 148/74 (98) 98 06/22/17 00:00 97.3 81 17 141/77 (98) 96 06/21/17 21:51 98.8 82 16 127/67 (87) 92 06/21/17 20:00 98.3 94 16 142/66 (91) 95 06/21/17 20:00 86 06/21/17 19:50 93 Nasal Cannula 2.00 06/21/17 16:00 84 06/21/17 16:00 98.4 85 21 142/67 (92) 94 Intake & Output 06/22/17 06/22/17 07:00 19:00 Intake Total 630 ml Balance 630 ml Intake Oral 480 ml IV Total 150 ml # Voids 3 # Bowel Movements 0 . Physical Exam CONSTITUTIONAL/GENERAL: This is an elderly female patient, in no apparent distress, awake and alert, very pleasant. TUBES/LINES/DRAINS: PIV x 2, CVL RIJ SKIN: No jaundice, rashes, or lesions. Ecchymoses on upper extremities. No wounds seen anteriorly. Skin temperature appropriate. Not diaphoretic. EYES: Pupils equal and round and reactive. Extraocular motions intact. No scleral icterus. No injection or drainage. Fundi not examined. ENT: Hearing grossly normal. Nose without bleeding or purulent drainage. CARDIOVASCULAR: Regular rate and rhythm without murmurs, gallops, or rubs. No JVD. Peripheral pulses symmetric. RESPIRATORY/CHEST: Symmetric, unlabored respirations. Clear to auscultation. Breath sounds equal bilaterally. No wheezes, rales, or rhonchi. GASTROINTESTINAL: Abdomen soft, non-tender, nondistended. No guarding. Bowel sounds present. GENITOURINARY: Without palpable bladder distension. MUSCULOSKELETAL: Extremities without clubbing or cyanosis. No mottling or clubbing. NEUROLOGICAL: Awake and alert. Motor and sensory grossly within normal limits. Follows commands. Cognitively sharp. Moves all extremities. PSYCHIATRIC: No obvious anxiety/depression. no apparent hallucinations or other psychotic thought process. . Diagnostic Tests Laboratory Laboratory Tests Test 06/19/17 16:45 06/20/17 05:15 06/20/17 05:20 06/21/17 20:40 Hemoglobin 7.6 GM/DL (11.6-15.3) 7.6 GM/DL (11.6-15.3) Hematocrit 22.4 % (35.0-46.0) 22.4 % (35.0-46.0) White Blood Count 7.9 TH/MM3 (4.0-11.0) Red Blood Count 2.64 MIL/MM3 (4.00-5.30) Mean Corpuscular Volume 85.1 FL (80.0-100.0) Mean Corpuscular Hemoglobin 29.0 PG (27.0-34.0) Mean Corpuscular Hemoglobin Concent 34.0 % (32.0-36.0) Red Cell Distribution Width 15.5 % (11.6-17.2) Platelet Count 110 TH/MM3 (150-450) Mean Platelet Volume 7.4 FL (7.0-11.0) Neutrophils (%) (Auto) 77.5 % (16.0-70.0) Lymphocytes (%) (Auto) 8.6 % (9.0-44.0) Monocytes (%) (Auto) 12.6 % (0.0-8.0) Eosinophils (%) (Auto) 1.0 % (0.0-4.0) Basophils (%) (Auto) 0.3 % (0.0-2.0) Neutrophils # (Auto) 6.1 TH/MM3 (1.8-7.7) Lymphocytes # (Auto) 0.7 TH/MM3 (1.0-4.8) Monocytes # (Auto) 1.0 TH/MM3 (0-0.9) Eosinophils # (Auto) 0.1 TH/MM3 (0-0.4) Basophils # (Auto) 0.0 TH/MM3 (0-0.2) CBC Comment AUTO DIFF Differential Comment AUTO DIFF CONFIRMED Platelet Estimate LOW (NORMAL) Platelet Morphology Comment NORMAL (NORMAL) Prothrombin Time 11.2 SEC (9.8-11.6) Prothromb Time International Ratio 1.0 RATIO Blood Urea Nitrogen 51 MG/DL (7-18) 40 MG/DL (7-18) Creatinine 2.28 MG/DL (0.50-1.00) 2.02 MG/DL (0.50-1.00) Random Glucose 70 MG/DL (74-106) 127 MG/DL (74-106) Calcium Level 7.8 MG/DL (8.5-10.1) 8.3 MG/DL (8.5-10.1) Phosphorus Level 3.0 MG/DL (2.5-4.9) Magnesium Level 2.0 MG/DL (1.5-2.5) Sodium Level 146 MEQ/L (136-145) 144 MEQ/L (136-145) Potassium Level 3.4 MEQ/L (3.5-5.1) 3.8 MEQ/L (3.5-5.1) Chloride Level 115 MEQ/L (98-107) 114 MEQ/L (98-107) Carbon Dioxide Level 21.0 MEQ/L (21.0-32.0) 23.4 MEQ/L (21.0-32.0) Anion Gap 10 MEQ/L (5-15) 7 MEQ/L (5-15) Estimat Glomerular Filtration Rate 20 ML/MIN (>89) 23 ML/MIN (>89) Result Diagram: 06/20/17 0515 06/21/172039 Assessment and Plan Disease Oriented Problem List: (1) GI (gastrointestinal bleed) (2) Esophagitis (3) Syncope (4) Pneumonia, aspiration Symptom Scale: (1) Nausea Pertinent Non-Medical Issues Psychosocial: Spiritual: Jain. Legal: None known. Ethical issues impacting care: None known. . Important Contacts Kaela Nash (daughter): [phone] Juancarlos Thomson (son):[phone] . Prognosis Prior to this hospitalization the patient was independent in all her ADLs and was able to ride her bicycle 3 miles approximately 3 times a week. The patient has been relatively healthy leading up to this hospitalization considering her advanced age. During this hospitalization she unfortunately had complications associated with an upper GI bleed and required mechanical ventilation. Due to her advanced age she is at risk for further set backs and complications. . Code Status: Full Code Plan * Legal decision maker: Patient currently capacitated to make her own decisions. She has designated her daughter Kaela Nash as her HCS if she is unable to make any medical decisions on her own. * CODE STATUS: FULL CODE * GOALS:Aggressive. Discharge pending family decision for SNF vs HHC/PT. Patient and family stated today they would like for her to be discharged home with HHC/PT. * SYMPTOM MANAGEMENT: --debility: Secondary to clinical condition, advanced age. PT consulted and working with patient as appropriate. No recommendations at this time. --nausea: Resolved. Ondansetron 4mg q 6 prn, sucralfate 1gm ACHS PO ordered. No recommendations at this time. --malnutrition: Secondary to current clinical status, patient still endorses a poor appetite. Patient could benefit from a meal supplement such as Nepro. Palliative care will continue to follow during hospital course as condition evolves, to assist patient/decision maker with understanding of medical conditions, weighing benefits/burdens of treatment options for clarification of goals of treatment. Additionally will assist with any symptoms of palliative concern. Attestation To help prompt me to consider important information that might be impacting today's encounter and assessment, information from prior notes written by myself or my colleagues may have been "brought forward" into today's note. My signature on this note, however, is an attestation that I personally performed the exam, history, and/or decision-making noted today, and, unless otherwise indicated, the interactions with patient, family, and staff as well as the review of records all occurred today. I also attest that the listed assessment and stated plan reflect my best clinical judgment today based on the combination of historical information, prior notes, and today's exam/ interactions. When time spent is documented, it refers only to time spent today by the signer, or if indicated, combined time spent today by collaborating physician/nurse practitioner. Concha Langston Jun 22, 2017 14:28
[2017-06-22 18:08] LABS: C. DIFF EPI 027 PRESUMPTIVE NEGATIVE (NEGATIVE)
[2017-06-23 03:21] VITALS: BP 109/58; PULSE 72; RESP 17; TEMP 98; O2SAT 96
[2017-06-23 08:00] VITALS: BP 147/77; PULSE 75; RESP 18; TEMP 98.1; O2SAT 94
[2017-06-23] MEDS: INSULIN ASPART SUPPLEMENTAL SCALE SQ SCH (08:00)
[2017-06-23] MEDS: CHLORHEXIDINE 0.12% (ORAL KIT) 15 ML CUP MT SCH (08:00)
[2017-06-23] MEDS: DOCUSATE SODIUM 50 MG/SENNA 8.6 MG TAB PO SCH (09:00)
[2017-06-23 09:04] VITALS: PULSE 67
[2017-06-23] MEDS: amLODIPine BESYLATE 5 MG TAB PO SCH (09:05)
[2017-06-23] MEDS: METOPROLOL TARTRATE 25 MG TAB PO SCH (09:06)
[2017-06-23] MEDS: SUCRALFATE 1 GM/10 ML CUP PO SCH ×2 (09:06→12:00)
[2017-06-23] MEDS: PANTOPRAZOLE SODIUM 40 MG VIAL IV PUSH SCH (09:06)
[2017-06-23] MEDS: ACYCLOVIR 800 MG TAB PO SCH (09:06)
[2017-06-23] MEDS: SODIUM CHLORIDE 0.9% FLUSH 10 ML FLUSH IV FLUSH SCH (09:07)
[2017-06-23] MEDS: ATORVASTATIN 40 MG TAB PO SCH (09:07)
[2017-06-23] MEDS ORDERED: SUCR1S PO (11:20)
[2017-06-23] MEDS ORDERED: PROT40TA PO (11:20)
--- NOTE | 2017-06-23 11:22 | HHI.FF ---
Face to Face Verification Diagnosis: (1) Syncope (2) Pneumonia, aspiration (3) GI (gastrointestinal bleed) (4) Anemia (5) GERD (gastroesophageal reflux disease) (6) Esophagitis (7) Nausea (8) CKD (chronic kidney disease) stage 4, GFR 15-29 ml/min (9) Hypertension (10) Shingles Physical Therapy Order: Evaluate and Treat, Improve ambulation, Strength and gait training Home Health Nursing Order: Medical education Nursing assessment with vital signs Instructions: Please check CBC and BMP on 06/25/17, with results to Dr. Manzo I have seen patient Allyson Gaines on 06/23/17. My clinical findings support the need for the requested home health care services because: Deconditioned w/ increased weakness High risk of falls I certify that my clinical findings support that this patient is homebound because: Unsteady gait/balance Iveth Roman Jun 23, 2017 11:22
--- NOTE | 2017-06-23 11:41 | HHI.DS ---
Discharge Summary Admission Date Jun 12, 2017 at 20:46 Discharge Date: Jun 23, 2017 Admitting Diagnosis syncope; poss aspiration pneumonitis; weakness (1) Syncope Diagnosis: Principal ICD Codes: R55 - Syncope and collapse Status: Acute (2) GI (gastrointestinal bleed) Diagnosis: Secondary ICD Codes: K92.2 - Gastrointestinal hemorrhage, unspecified Status: Acute (3) Pneumonia, aspiration Diagnosis: Secondary ICD Codes: J69.0 - Pneumonitis due to inhalation of food and vomit Status: Acute (4) Anemia Diagnosis: Secondary ICD Codes: D64.9 - Anemia, unspecified Status: Chronic (5) Shingles Diagnosis: Secondary ICD Codes: B02.9 - Zoster without complications Status: Acute (6) Esophagitis Diagnosis: Secondary ICD Codes: K20.9 - Esophagitis, unspecified Status: Acute (7) Hypertension Diagnosis: Secondary ICD Codes: I10 - Essential (primary) hypertension Status: Chronic (8) CKD (chronic kidney disease) stage 4, GFR 15-29 ml/min Diagnosis: Secondary ICD Codes: N18.4 - Chronic kidney disease, stage 4 (severe) Status: Chronic (9) GERD (gastroesophageal reflux disease) Diagnosis: Secondary ICD Codes: K21.9 - Gastro-esophageal reflux disease without esophagitis Status: Chronic Consultants Dr. William Guthrie/Dr. Kal Sesay - GI Dr. Tabatha Brewster - ID Dr. Jennifer Capellan - Neurology Dr. Miah Calderón - Palliative Care Procedures EGD on 06/15/17 which noted severe grade D esophagitis, severe duodenitis and gastritis, and multiple polyps in the body of the stomach one of them removed by snare EGD on 06/16/17 which noted severe grade D esophagitis no active bleeding at this point, the stomach is full of clots and old blood most likely this is related to esophagitis CBC/BMP: 06/20/17 0515 06/21/172039 Significant Findings Laboratory Tests Test 06/21/17 20:40 06/22/17 16:00 Blood Urea Nitrogen 40 MG/DL (7-18) Creatinine 2.02 MG/DL (0.50-1.00) Random Glucose 127 MG/DL (74-106) Calcium Level 8.3 MG/DL (8.5-10.1) Chloride Level 114 MEQ/L (98-107) Estimat Glomerular Filtration Rate 23 ML/MIN (>89) Imaging Last Impressions Chest X-Ray 06/19/17 0600 Signed Impressions: Service Date/Time: Monday, June 19, 2017 03:25 - CONCLUSION: No significant change bibasilar consolidation and small effusions. Patient has been extubated. Ebenezer Bejarano MD Neck Magnetic Resonance Angiography 06/15/17 0000 Signed Impressions: Service Date/Time: Thursday, June 15, 2017 11:41 - CONCLUSION: Negative for hemodynamically significant stenosis. Charly Maldonado MD FACR Carotid Artery Ultrasound 06/14/17 0000 Signed Impressions: Service Date/Time: May 10:15 - CONCLUSION: Elevated peak systolic velocity of the proximal left internal carotid artery indicating possible high-grade stenosis. Recommend CTA carotids for further evaluation. Elevated right external carotid peak systolic velocity also noted. Jim Marrero MD Head CT 06/12/17 1913 Signed Impressions: Service Date/Time: Monday, June 12, 2017 19:45 - CONCLUSION: Negative noncontrast head CT. Ebenezer Bejarano MD PE at Discharge General: NAD, AAOx3 Chest: CTA Cardiac: Regular Abd: +BS, soft ND/NT Ext: No edema Hospital Course Anemia/GIB Pt is an 87 y/o female with baseline chronic anemia, likely multifactorial associated with chronic kidney disease stage IV who presented to the ED on for evaluation of syncopal episode. On 06/07/17 she was diagnosed with shingles affecting the right trunk and chest wall. Patient was seen by her primary care provider and started on gabapentin and acyclovir. Family has noted since starting the new medications she has been a little confused and off balance. On 06/12/17 the patient was found to be unresponsive sitting upright in her chair. Daughter reported that the pt coughed and then vomited. Patient was brought in to the ED at [facility]. After the episode of vomiting patient had increasing congested cough. Following admission the patient had hematemesis, gastroenterology was consulted. Pt underwent evaluation with EGD on 06/15/17 which noted severe grade D esophagitis, severe duodenitis and gastritis, and multiple polyps in the body of the stomach one of them removed by snare. On she had an episode of hematemesis of approximately 300 cc, PPI was increased. That same day she had subsequent bouts of hematemesis with a significant drop in hemoglobin to 7.0 and hypotension with systolic BP in the 60s-70s. Pt was transferred to [facility] with [facility] consultation. The patient was transfused 2 units of blood but continued to have hypotensive episodes, and was started on pressors. The patient was intubated for airway protection was noted blood around hypopharynx and epiglottis with confirmation of recent aspiration. On 06/16/17 the patient underwent repeat EGD which noted severe grade D esophagitis no active bleeding at this point, the stomach is full of clots and old blood most likely this is related to esophagitis On 06/17 the patient went into A. fib with RVR, and was bolused with amiodarone followed by an amiodarone infusion. The arrhythmia resolved however the patient continued to be hypotensive and was continued on norepinephrine. Pt was transfused with 1 unit packed red blood cells in the setting of A. fib. She was successfully extubated on 06/18. H/H was still less than 8.0 on 06/19 and she was transfused another 1 unit PRBCs. BP started improving and stabilizing and BB was initiated on 06/19. Pt has been tolerating po but not eating much. She was able to be transferred out of ICU and has remained stable. She was continued on IV PPI and Carafate. Pt complained of some diarrhea on 06/21 and 06/22, stools were negative for C. diff. Pt reported that she did not want any further blood transfusions toward the end of the admission. Her last H/H was checked on 06/20 which noted Hgb 7.6/Hct 22.4. Pts family at this point is wanting home with HHC/PT at discharge, stressed to the patient and family that she may benefit more from SNF placement for continued aggressive PT but at this point they are not interested. Pt will be continued on Protonix 40mg po BID and Carafate Liquid 1 gram po TID. She will followup with GI in 2 weeks Her ASA will be held at discharge, GI to determine resuming the ASA. We will recheck her CBC on Sunday06/25/17 with results to her PCP, Dr. Manzo Pt will need to followup with Dr. Manzo within 1 week. Syncope Etiology for her syncope is not completely clear at this point, possibly vasovagal syncope as the pt vomited and could have been nauseated prior to syncopal episode but does not remember the event, vs. hypotension vs. medication effect vs. other. Pt was seen by Neurology at admission. Workup during this admission included: Carotid US (06/14) --> Elevated peak systolic velocity of the proximal left internal carotid artery indicating possible high- grade stenosis. Recommend CTA carotids for further evaluation. Elevated right external carotid peak systolic velocity also noted. MRA Neck (06/15) --> Negative for hemodynamically significant stenosis. Holter Monitor (06/14) --> Sinus rhythm with frequent episodes of sinus tachycardia up to 133bpm, no significant bradycardia was noted, rare PVCs and PACs which were unifocal. Pneumonia, aspiration Likely occurred due to emesis when she had the syncopal episode. Pt was treated with Levaquin and Azactam discontinued on 06/20 as she completed treatment per ID. A. fib with RVR Pt developed A. fib RVR during her ICU admission. She converted with V Amio and was resumed on her BB. She has remained in NSR. Shingles Gabapentin has been discontinued. Pain seems relatively well controlled. ID recommended 2 weeks of acyclovir, this was started on 06/07 so the two week treatment course has been completed. The Acyclovir will not be continued at discharge. Hypertension Well-controlled currently. Her medication regimen has been decreased during this admission. She will be continued on Metoprolol 25mg po BID and Norvasc 2.5mg po Daily. Her Losartan and Hydralazine will not be resumed. [facility] will monitor her BP as these medications may need to be resumed the further out from this hospitalization she gets. Pt Condition on Discharge: Stable Discharge Disposition: Disch w/ Home Health Serv Discharge Instructions DIET: Follow Instructions for: Heart Healthy Diet Activities you can perform: Regular-No Restrictions Follow up Referrals: Gastroenterology - 2 Weeks with Kal Sesay MD PCP Follow-up - [address] Manzo [facility]/ with [facility] New Medications: Pantoprazole (Protonix) 40 Mg Tab 40 MG PO BID for Reflux, #60 TAB 0 Refills Sucralfate Liq (Sucralfate Liq) 1 Gram/10 Ml Jimena 1 GM PO ACHS for esophagitis for 30 Days, BOTTLE Continued Medications: Amlodipine (Amlodipine) 2.5 Mg Tab 2.5 MG PO DAILY for Blood Pressure Management, #30 TAB 0 Refills Metoprolol Tartrate (Metoprolol Tartrate) 25 Mg Tab 25 MG PO BID, #60 TAB 0 Refills Simvastatin (Simvastatin) 40 Mg Tab 40 MG PO HS for Cholesterol Management, #30 TAB 0 Refills Discontinued Medications: Acyclovir (Acyclovir) 800 Mg Tab 800 MG PO BID for Mgmt Viral Infection, TAB 0 Refills Aspirin (Aspirin) 81 Mg Chew 81 MG CHEW DAILY, TAB 0 Refills Hydralazine HCl (Hydralazine HCl) 50 Mg Tablet 50 MG PO TID for Hypertension, #30 TAB 0 Refills Losartan (Losartan) 100 Mg Tab 100 MG PO DAILY for Blood Pressure Management, #30 TAB 0 Refills Iveth Roman Jun 23, 2017 11:41 Daniel Borrero MD Jun 23, 2017 12:43
[2017-06-23 12:00] VITALS: BP 137/68; PULSE 82; RESP 18; TEMP 96.2; O2SAT 93
[2017-06-23] MEDS ORDERED: WALKER WHEELS/F1 MIS (12:23)
== END 2017-06-23 16:23 | disposition home health service (06) | DRG 208 ==
LOC: PHED 18:08 → PHEDA 20:46 → PH3A 23:32 → PH5A 06-13 06:51 → PHICU 06-16 09:47 → N03B 06-16 15:13 → N03A 06-17 01:31 → N06B 06-21 21:21
PROVIDERS: ADMIT Anesthesiology; ATTEND Anesthesiology
PROC: 0DB38ZX Excision of Lower Esophagus, Via Natural or Artificial Opening Endoscopic, Diagnostic (ICD-10-PCS; 2017-06-15)
PROC: 0DB68ZX Excision of Stomach, Via Natural or Artificial Opening Endoscopic, Diagnostic (ICD-10-PCS; 2017-06-15)
PROC: 03HY32Z Insertion of Monitoring Device into Upper Artery, Percutaneous Approach (ICD-10-PCS; 2017-06-16)
PROC: 0DJ08ZZ Inspection of Upper Intestinal Tract, Via Natural or Artificial Opening Endoscopic (ICD-10-PCS; 2017-06-16)
PROC: 0BH17EZ Insertion of Endotracheal Airway into Trachea, Via Natural or Artificial Opening (ICD-10-PCS; 2017-06-16)
PROC: 02HV33Z Insertion of Infusion Device into Superior Vena Cava, Percutaneous Approach (ICD-10-PCS; 2017-06-16)
PROC: 30233N1 Transfusion of Nonautologous Red Blood Cells into Peripheral Vein, Percutaneous Approach (ICD-10-PCS; 2017-06-16)
PROC: 5A1945Z Respiratory Ventilation, 24-96 Consecutive Hours (ICD-10-PCS; principal; 2017-06-16 17:54)
DX: J69.0 Pneumonitis due to inhalation of food and vomit (principal); R57.1 Hypovolemic shock; J96.90 Respiratory failure, unspecified, unspecified whether with hypoxia or hypercapnia; E46 Unspecified protein-calorie malnutrition; N18.4 Chronic kidney disease, stage 4 (severe); N17.9 Acute kidney failure, unspecified; D69.6 Thrombocytopenia, unspecified; I48.91 Unspecified atrial fibrillation; D62 Acute posthemorrhagic anemia; D63.1 Anemia in chronic kidney disease; N25.81 Secondary hyperparathyroidism of renal origin; B02.9 Zoster without complications; K29.80 Duodenitis without bleeding; K29.70 Gastritis, unspecified, without bleeding; I12.9 Hypertensive chronic kidney disease with stage 1 through stage 4 chronic kidney disease, or unspecified chronic kidney disease; E78.5 Hyperlipidemia, unspecified; M10.9 Gout, unspecified; G25.0 Essential tremor; K31.7 Polyp of stomach and duodenum; I25.10 Atherosclerotic heart disease of native coronary artery without angina pectoris; Z51.5 Encounter for palliative care; R55 Syncope and collapse; M81.0 Age-related osteoporosis without current pathological fracture; K21.0 Gastro-esophageal reflux disease with esophagitis; R73.9 Hyperglycemia, unspecified; M19.90 Unspecified osteoarthritis, unspecified site; R19.7 Diarrhea, unspecified; Z74.01 Bed confinement status; W19.XXXA Unspecified fall, initial encounter; R29.6 Repeated falls; Z95.5 Presence of coronary angioplasty implant and graft; Z96.653 Presence of artificial knee joint, bilateral; Z86.010 Personal history of colon polyps; Z87.11 Personal history of peptic ulcer disease
CPT/HCPCS: 31500; 36430; 36556; 70450; 70547; 71010; 71020; 76937; 80048; 80053; 81001; 82550; 82552; 82805; 82948; 83605; 83735; 83880; 84100; 84155; 84484; 85007; 85014; 85018; 85025; 85027; 85610; 85730; 86850; 86900; 86901; 86920; 87040; 87205; 87493; 87641; 88305; 88312; 93005; 93225; 93226; 93880; 94002; 94003; 94150; 94640; 94664; 95819; 99285; C9113; J0282; J0330; J1815; J1956; J2405; J2550; J3010; J7030; J7040; J7060; J7120; P9016; P9040

== ENCOUNTER 2017-09-23 09:11 | Inpatient (IN) | payer MEDICARE, OTHER ==
[~2017-09-23] VITALS: Ht 144.8 cm; Wt 64.0 kg
[~2017-09-23 09:11] MED LIST changes: -ALLO100 PO; +AMLO2.5T PO; -ASPI325T PO; -CALC600T34 PO; -CLOP75 PO; -DYAZ37.52 PO; -LORT7.5T3 PO; +METO25TA3 PO; -METO50TA PO; -MEVA40TA6 PO; -POTA-243 PO; -PRIN5TAB PO; +PROT40TA PO; +SIMV40TA PO; -SPIR25 PO; +SUCR1S PO; -VITA500T10 PO; +WALKER WHEELS/F1 MIS
[2017-09-23 09:23] VITALS: BP 165/77; PULSE 67; RESP 18; TEMP 98.2; O2SAT 98
[2017-09-23] MEDS ORDERED: ACETAMINOPHEN/HYDROcodone 325 MG/5 MG TAB PO ONE (09:30)
[2017-09-23 09:31] VITALS: BP 165/77; PULSE 65; RESP 18; TEMP 98.2; O2SAT 99
--- NOTE | 2017-09-23 10:10 | RADRPT ---
EXAM DATE/TIME: 09/23/2017 09:48 [facility] COMPARISON: No previous studies available for comparison. INDICATIONS : Pain without trauma. MEDICAL HISTORY : None. SURGICAL HISTORY : None. ENCOUNTER: Initial ACUITY: 3 days PAIN SCORE: 7/10 LOCATION: Right hip. FINDINGS: Degenerative changes and scoliosis of the lower lumbar spine are noted. There is no acute fracture or dislocation of either hip. Mild degenerative changes are noted involving the hip joints bilaterally. CONCLUSION: 1. No acute fracture or dislocation. 2. Mild degenerative changes involving the hip joints bilaterally. 3. Degenerative changes and scoliosis of the lower lumbar spine. Juancarlos Bellamy MD on September 23, 2017 at 10:07 Board Certified Radiologist. This report was verified electronically.
--- NOTE | 2017-09-23 11:09 | PD ---
HPI Chief Complaint: Hip Injury Time Seen by Provider: 09:27 Travel History International Travel<30 days: No Contact w/Intl Traveler<30days: No Traveled to known affect area: No History of Present Illness HPI 87-year-old female came to the emergency room with history of right hip pain and unable to sit up or stand because of the pain since yesterday. Patient was brought in by EMS but most of the history was obtained from her daughter and son who later on came to the emergency room to be with her. No history of trauma. As per the daughter she has been very active up until one month ago when she was diagnosed with shingles. Currently her primary care is trying to treat postherpetic neuralgia for her with gabapentin. However as per the family patient has been getting the gabapentin like she supposed to which is 100 mg twice a day but since yesterday the pain has been so severe that she has not been able to be ambulatory at all. They're having difficulty taking care of her at home like this and hence brought her in to figure out what's going on. Patient is very frail but awake and answering questions appropriately. She says when she lays still the pain is okay but when she moves the pain starts to come back. PFSH Past Medical History Narrative Medical List of her past medical, surgical, social and family history is reviewed from the nursing note. Arthritis: Yes Autoimmune Disease: No Blood Disorders: No Heart Rhythm Problems: No Cancer: No Cardiovascular Problems: Yes High Cholesterol: Yes Chest Pain: No Congestive Heart Failure: No Cerebrovascular Accident: No Diabetes: No Endocrine: No Gastrointestinal Disorders: Yes (POLYP) Gout: Yes Genitourinary: No Headaches: Yes Hypertension: Yes Immune Disorder: No Implanted Vascular Access Dvce: Yes Musculoskeletal: Yes Neurologic: Yes Psychiatric: No Reproductive: No Respiratory: No Myocardial Infarction: No Seizures: No Tetanus Vaccination: Unknown Influenza Vaccination: Yes ?: Not Menopausal: Yes Past Surgical History Abdominal Surgery: Yes (APPY, COLON RESECTION) AICD: No Appendectomy: Yes Gynecologic Surgery: Yes (TAHBSO) Hysterectomy: Yes Joint Replacement: Yes (UMANG. KNEES) Oral Surgery: Yes (T & A) Pacemaker: No Tonsillectomy: Yes Other Surgery: Yes (STENTS) Social History Alcohol Use: No Tobacco Use: No Substance Use: No Allergies-Medications (Allergen,Severity, Reaction): Coded Allergies: penicillin G (Unverified Allergy, Mild, Rash, 06/12/17) Comments List of her allergies reviewed from the nursing note. Reported Meds & Prescriptions Reported Meds & Active Scripts Active Walker with Front Wheels (Device) 1 Mis Mis Ea .ROUTE DIRECTED Reported Oxycodone-Acetaminophen 5-325 (Oxycodone HCl/Acetaminophen) 5 Mg-325 Mg Tablet Q6HR PRN Bumetanide 1 Mg Tab 1 Mg PO DAILY Narrative Medication List of her home medications reviewed from the nursing note. Review of Systems Except as stated in HPI: all other systems reviewed are Neg Musculoskeletal: Positive: Pain Physical Exam Narrative GENERAL: Awake, alert, moderate distress, elderly and frail SKIN: Focused skin assessment warm/dry. HEAD: Atraumatic. Normocephalic. EYES: Pupils equal and round. No scleral icterus. No injection or drainage. ENT: No nasal bleeding or discharge. Mucous membranes pink and moist. NECK: Trachea midline. No JVD. CARDIOVASCULAR: Regular rate and rhythm. No murmur appreciated. RESPIRATORY: No accessory muscle use. Clear to auscultation. Breath sounds equal bilaterally. GASTROINTESTINAL: Abdomen soft, non-tender, nondistended. Hepatic and splenic margins not palpable. MUSCULOSKELETAL: No obvious deformities. No clubbing. No cyanosis. No edema. Right leg slightly shorter than the left. Good range of motion at the knee and hip joints bilaterally. NEUROLOGICAL: Awake and alert. No obvious cranial nerve deficits. Motor grossly within normal limits. Normal speech. PSYCHIATRIC: Appropriate mood and affect; insight and judgment normal. Data Data Last Documented VS Vital Signs Date Time Temp Pulse Resp B/P (MAP) Pulse Ox O2 Delivery O2 Flow Rate FiO2 09/23/17 12:30 98.2 69 18 147/78 (101) 99 Room Air Orders Orders Hip, Uni(Ap&Lat) W Ap Pelvis (09/23/17 ) Acetamin-Hydrocod 325-5 Mg ([place] 5-325 (09/23/17 09:30) Ct Lumb Spine W/O Contrast (09/23/17 ) Ct Pelvis W/O Iv Contrast (09/23/17 ) Complete Blood Count With Diff (09/23/17 12:09) Comprehensive Metabolic Panel (09/23/17 12:09) ^ Saline Lock (09/23/17 12:09) Admit Order (Ed Use Only) (09/23/17 12:50) Labs Laboratory Tests Test 09/23/17 12:16 09/23/17 12:50 White Blood Count 6.6 TH/MM3 Red Blood Count 3.22 MIL/MM3 Hemoglobin 9.3 GM/DL Hematocrit 27.5 % Mean Corpuscular Volume 85.2 FL Mean Corpuscular Hemoglobin 29.0 PG Mean Corpuscular Hemoglobin Concent 34.0 % Red Cell Distribution Width 14.3 % Platelet Count 165 TH/MM3 Mean Platelet Volume 8.4 FL Neutrophils (%) (Auto) 52.7 % Lymphocytes (%) (Auto) 19.7 % Monocytes (%) (Auto) 21.1 % Eosinophils (%) (Auto) 5.6 % Basophils (%) (Auto) 0.9 % Neutrophils # (Auto) 3.5 TH/MM3 Lymphocytes # (Auto) 1.3 TH/MM3 Monocytes # (Auto) 1.4 TH/MM3 Eosinophils # (Auto) 0.4 TH/MM3 Basophils # (Auto) 0.1 TH/MM3 CBC Comment DIFF FINAL Differential Comment Blood Urea Nitrogen 74 MG/DL Creatinine 4.53 MG/DL Random Glucose 78 MG/DL Total Protein 6.0 GM/DL Albumin 2.8 GM/DL Calcium Level 13.2 MG/DL Alkaline Phosphatase 87 U/L Aspartate Amino Transf (AST/SGOT) 31 U/L Alanine Aminotransferase (ALT/SGPT) 20 U/L Total Bilirubin 0.3 MG/DL Sodium Level 142 MEQ/L Potassium Level 4.4 MEQ/L Chloride Level 105 MEQ/L Carbon Dioxide Level 31.8 MEQ/L Anion Gap 5 MEQ/L Estimat Glomerular Filtration Rate 9 ML/MIN Protein Corrected Calcium MG/DL [facility] Medical Decision Making Medical Screen Exam Complete: Yes Emergency Medical Condition: Yes Medical Record Reviewed: Yes Differential Diagnosis Hip arthritis, hip fracture, lumbar radiculopathy Narrative Course 1 PM the x-ray that was done initially did not show any fracture or significant arthritis and hence the cause of her pain. The patient was medicated with pain pills which she said seemed to take the edge off but once again anytime she tried to move the pain would come back. Her daughter and son were really concerned since their mother went from a fully functional independent person to bedridden in just a matter of a few weeks. At this point based on this concern a CT scan of the lumbar spine and pelvis was ordered by me. As per the radiologist the bony pelvis and the lumbar vertebrae is full of lytic lesions which could be metastatic bone disease or multiple myeloma. I had given the option to the family of hospice care given patient's age and frailness which would probably not go well with any treatment if offered by oncology for the cancer versus hospitalization and workup for the cancer. After they discussed with their brother who is a radiologist who lives in [place] they have chosen to admit the patient for now and initiate the workup and possibly get palliative care in another couple days. I discussed the case with the hospitalist who has accepted the patient. 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
--- NOTE | 2017-09-23 11:51 | RADRPT ---
EXAM DATE/TIME: 09/23/2017 10:43 [facility] COMPARISON: No previous studies available for comparison. INDICATIONS : Right hip and lower back pain today. RADIATION DOSE: 18.7 CTDIvol (mGy) ; Combined studies MEDICAL HISTORY : Cardiovascular disease. SURGICAL HISTORY : Hysterectomy. Colon resection. Appendectomy. ENCOUNTER: Initial ACUITY: 1 day PAIN SCALE: 6/10 LOCATION: Bilateral lower back TECHNIQUE: Volumetric scanning of the lumbar spine was performed. Multiplanar reconstructions in the sagittal, coronal and oblique axial planes were performed. Using automated exposure control and adjustment of the mA and/or kV according to patient size, radiation dose was kept as low as reasonably achievable t o obtain optimal diagnostic quality images. DICOM format image data is available electronically for review and comparison. FINDINGS: Lytic destructive lesions are noted throughout the lumbar spine, sacrum and visualized portions of th e iliac bones consistent with metastatic disease or multiple myeloma until proven otherwise. Most sig nificant lesion is noted at the L2 level and results in almost complete destruction of the L2 vertebr al body. Degenerative changes and scoliosis of the lumbar spine are noted. Multilevel spinal stenoses are noted within the lumbar spine. There is grade I anterolisthesis of L5 in relation to S1. Signifi cant bilateral foraminal narrowing is noted at all levels within the lumbar spine. MRI of lumbar spin e may be helpful for further evaluation of these findings if clinical indicated. CONCLUSION: 1. Lytic destructive lesions are noted throughout the lumbar spine, sacrum and visualized portions of the iliac bones consistent with metastatic disease or multiple myeloma until proven otherwise. Most significant lesion is noted at the L2 level and results in almost complete destruction of the L2 vert ebral body. 2. Degenerative changes and scoliosis of the lumbar spine are noted. 3. Multilevel spinal stenoses are noted within the lumbar spine. 4. Grade I anterolisthesis of L5 in relation to S1. 5. Significant bilateral foraminal narrowing is noted at all levels within the lumbar spine. 6. MRI of lumbar spine may be helpful for further evaluation of these findings if clinical indicated. Juancarlos Bellamy MD on September 23, 2017 at 11:43 Board Certified Radiologist. This report was verified electronically.
--- NOTE | 2017-09-23 12:00 | RADRPT ---
EXAM DATE/TIME: 09/23/2017 10:43 [facility] COMPARISON: No previous studies available for comparison. INDICATIONS : Right hip and lower back pain today. ORAL CONTRAST: No oral contrast ingested. RADIATION DOSE: 18.7 CTDIvol (mGy) ; Combined studies MEDICAL HISTORY : Cardiovascular disease. SURGICAL HISTORY : Hysterectomy. Colon resection.Appendectomy. ENCOUNTER: Initial ACUITY: 1 day PAIN SCALE: 6/10 LOCATION: Right hip TECHNIQUE: Volumetric scanning of the pelvis was performed. Using automated exposure control and adjustment of the mA and/or kV according to patient size, radiation dose was kept as low as reasonably achievable t o obtain optimal diagnostic quality images. DICOM format image data is available electronically for review and comparison. FINDINGS: Scattered lytic destructive lesions are noted involving the bilateral iliac bones and sacrum suggesti ve of metastatic disease or multiple myeloma. Clinical correlation is recommended. No acute fracture or dislocation is noted. Degenerative changes, scoliosis and multiple lytic lesions are also noted wi thin the lumbar spine. The urinary bladder is unremarkable. No focal bowel abnormality is identified within the pelvis. No s ignificant lymphadenopathy is noted. No ascites is noted. CONCLUSION: 1. Scattered lytic destructive lesions throughout the bony pelvis and lumbar spine with metastatic di sease or multiple myeloma. Clinical correlation is recommended. 2. Degenerative changes and scoliosis of lumbar spine. 3. No acute fracture or dislocation. Juancarlos Bellamy MD on September 23, 2017 at 11:54 Board Certified Radiologist. This report was verified electronically.
[2017-09-23 12:30] VITALS: BP 147/78; PULSE 69; RESP 18; TEMP 98.2; O2SAT 99
[2017-09-23] MEDS ORDERED: ONDANSETRON HCL 4 MG/2 ML VIAL IVP PRN (13:00)
[2017-09-23] MEDS ORDERED: SODIUM CHLORIDE 0.9% FLUSH 10 ML FLUSH IV FLUSH PRN (13:00)
[2017-09-23] MEDS ORDERED: ACETAMINOPHEN 325 MG TAB PO PRN (13:00)
[2017-09-23] MEDS ORDERED: NALOXONE HCL 0.4 MG/ML AMP IV PUSH PRN (13:00)
[2017-09-23] MEDS ORDERED: MAGNESIUM HYDROXIDE SUSP 30 ML CUP PO PRN (13:00)
--- NOTE | 2017-09-23 13:03 | HHI.HP ---
HPI Service [facility] Hospitalists Primary Care Physician Estrella Mauricio M.D. Admission Diagnosis bony metastases, intractable pain Chief Complaint: hip pain Travel History International Travel<30 Days: No Contact w/Intl Traveler <30 Da: No Traveled to Known Affected Are: No History of Present Illness This is 87-year-old female with a past mental history which includes arthritis, hypertension, dyslipidemia, chronic kidney disease stage IV status post renal artery stent, pulmonary edema. Patient has had a recent lengthy hospital stay requiring ICU treatment, admission was from the 06/16/2017 2 06/23/2017 secondary to syncope GI bleed aspiration pneumonia. Patient presented to the emergency department today with complaints of right-sided hip pain causing a shift to be unable to bear weight or ambulate. Right hip and pelvis x-ray reviewed and reveals no acute fracture dislocation. Mild degenerative changes involving the hip joints bilaterally. Degenerative changes in scoliosis of the lower lumbar spine. CT lumbar spine reviewed and revealed metastatic distractive lesions are noted throughout the lumbar spine, sacrum and the visualized portions of the iliac bones consistent with metastatic disease or multiple myeloma until proven otherwise. Most significant lesion is noted at the L2 level and results are also noticed almost complete discharge of the L2 vertebral body. Degenerative changes and scoliosis of the lumbar spine are noted. Multilevel spinal stenosis are noted within the lumbar spine. Grade 1 anterolisthesis of L5 in relation to S1. Significant bilateral foraminal narrowing is noted at all levels within the lumbar spine. MRI of lumbar spine may be helpful for further evaluation of these findings if clinically indicated. CT pelvis reviewed and reveals scattered lytic distractive lesions throughout the bony pelvis and lumbar spine with metastatic disease or multiple myeloma. No acute fracture or dislocation. Review of Systems Constitutional: DENIES: Fatigue, Fever, Chills Eyes: DENIES: Blurred vision, Diplopia, Vision loss Respiratory: DENIES: Cough, Sputum production, Shortness of breath Cardiovascular: DENIES: Chest pain, Palpitations, Dyspnea on Exertion Gastrointestinal: DENIES: Abdominal pain, Constipation, Diarrhea, Nausea, Vomiting Musculoskeletal: COMPLAINS OF: Joint pain, Stiffness Neurologic: COMPLAINS OF: Abnormal gait, Localized weakness, DENIES: Headache, Speech Problems Psychiatric: DENIES: Anxiety, Confusion, Depression Past Family Social History Past Medical History arthritis, hypertension, dyslipidemia, chronic kidney disease stage IV status post renal artery stent, pulmonary edema. Past Surgical History Surgical history includes colon resection with colostomy, appendectomy, ALBA/BSO , bilateral knee replacements, tonsils and adenoids removed, cardiac stents Reported Medications Sucralfate Liq (Sucralfate) 1 Gram/10 Ml Jimena 1 Gm PO ACHS 30 Days Protonix (Pantoprazole Sodium) 40 Mg Tab 40 Mg PO BID Simvastatin 40 Mg Tab 40 Mg PO HS Metoprolol Tartrate 25 Mg Tab 25 Mg PO BID Amlodipine (Amlodipine Besylate) 2.5 Mg Tab 2.5 Mg PO DAILY Allergies: Coded Allergies: penicillin G (Unverified Allergy, Mild, Rash, 06/12/17) Family History Reviewed and noncontributory Social History Social history patient denies EtOH use tobacco use or illicit drug use Physical Exam Vital Signs Vital Signs Date Time Temp Pulse Resp B/P (MAP) Pulse Ox O2 Delivery O2 Flow Rate FiO2 09/23/17 10:35 18 09/23/17 09:31 98.2 65 18 165/77 (106) 99 Room Air 09/23/17 09:31 18 99 Room Air 09/23/17 09:23 98.2 67 18 165/77 (106) 98 Physical Exam GENERAL: This is an elderly 87-year-old female patient SKIN: No rashes, ecchymoses or lesions. Cool and dry. HEAD: Atraumatic. Normocephalic. No temporal or scalp tenderness. EYES: Extraocular motions intact. No scleral icterus. No injection or drainage. CARDIOVASCULAR: Regular rate and rhythm RESPIRATORY: Diminished throughout GASTROINTESTINAL: Abdomen soft, non-tender, nondistended. MUSCULOSKELETAL: Extremities without clubbing, cyanosis, or edema. No joint tenderness, effusion, or edema noted. No calf tenderness. Negative Homans sign bilaterally. NEUROLOGICAL: Awake and alert. Motor and sensory grossly within normal limits. 3-4 out of 5 muscle strength in all muscle groups. Normal speech. Imaging Last Impressions Pelvis CT 09/23/17 0000 Signed Impressions: Service Date/Time: Saturday, September 23, 2017 10:43 - CONCLUSION: 1. Scattered lytic destructive lesions throughout the bony pelvis and lumbar spine with metastatic disease or multiple myeloma. Clinical correlation is recommended. 2. Degenerative changes and scoliosis of lumbar spine. 3. No acute fracture or dislocation. Juancarlos Bellamy MD Lumbar Spine CT 09/23/17 0000 Signed Impressions: Service Date/Time: Saturday, September 23, 2017 10:43 - CONCLUSION: 1. Lytic destructive lesions are noted throughout the lumbar spine, sacrum and visualized portions of the iliac bones consistent with metastatic disease or multiple myeloma until proven otherwise. Most significant lesion is noted at the L2 level and results in almost complete destruction of the L2 vertebral body. 2. Degenerative changes and scoliosis of the lumbar spine are noted. 3. Multilevel spinal stenoses are noted within the lumbar spine. 4. Grade I anterolisthesis of L5 in relation to S1. 5. Significant bilateral foraminal narrowing is noted at all levels within the lumbar spine. 6. MRI of lumbar spine may be helpful for further evaluation of these findings if clinical indicated. Juancarlos Bellamy MD Hip and Pelvis X-Ray 09/23/17 0000 Signed Impressions: Service Date/Time: Saturday, September 23, 2017 09:48 - CONCLUSION: 1. No acute fracture or dislocation. 2. Mild degenerative changes involving the hip joints bilaterally. 3. Degenerative changes and scoliosis of the lower lumbar spine. Juancarlos Bellamy MD [facility] VTE Risk Assessment Caprini VTE Risk Assessment: Mod/High Risk (score >= 2) Caprini Risk Assessment Model Point Value = 1 Point Value = 2 Point Value = 3 Point Value = 5 Age 41-60 Minor surgery BMI > 25 kg/m2 Swollen legs Varicose veins or History of unexplained or recurrent spontaneous Oral contraceptives or hormone replacement Sepsis (< 1 month) Serious lung disease, including pneumonia (< 1 month) Abnormal pulmonary function Acute myocardial infarction Congestive heart failure (< 1 month) History of inflammatory bowel disease Medical patient at bed rest Age 61-74 Arthroscopic surgery Major open surgery (> 45 min) Laparoscopic surgery (> 45 min) Malignancy Confined to bed (> 72 hours) Immobilizing plaster cast Central venous access Age >= 75 History of VTE Family history of VTE Factor V Leiden Prothrombin [id number] Lupus anticoagulant Anticardiolipin antibodies Elevated serum homocysteine Heparin-induced thrombocytopenia Other congenital or acquired thrombophilia Stroke (< 1 month) Elective arthroplasty Hip, pelvis, or leg fracture Acute spinal cord injury (< 1 month) Prophylaxis Regimen Total Risk Factor Score Risk Level Prophylaxis Regimen 0-1 Low Early ambulation 2 Moderate Order ONE of the following: *Sequential Compression Device (SCD) *Heparin 5000 units SQ BID 3-4 Higher Order ONE of the following medications: *Heparin 5000 units SQ TID *Enoxaparin/Lovenox 40 mg SQ daily (WT < 150 kg, CrCl > 30 mL/min) *Enoxaparin/Lovenox 30 mg SQ daily (WT < 150 kg, CrCl > 10-29 mL/min) *Enoxaparin/Lovenox 30 mg SQ BID (WT < 150 kg, CrCl > 30 mL/min) AND/OR *Sequential Compression Device (SCD) 5 or more Highest Order ONE of the following medications: *Heparin 5000 units SQ TID (Preferred with Epidurals) *Enoxaparin/Lovenox 40 mg SQ daily (WT < 150 kg, CrCl > 30 mL/min) *Enoxaparin/Lovenox 30 mg SQ daily (WT < 150 kg, CrCl > 10-29 mL/min) *Enoxaparin/Lovenox 30 mg SQ BID (WT < 150 kg, CrCl > 30 mL/min) AND *Sequential Compression Device (SCD) Assessment and Plan Problem List: (1) Hip pain ICD Codes: M25.559 - Pain in unspecified hip Status: Acute Plan: This is 87-year-old female with a past mental history which includes arthritis, hypertension, dyslipidemia, chronic kidney disease stage IV status post renal artery stent, pulmonary edema. Patient has had a recent lengthy hospital stay requiring ICU treatment, admission was from the 06/16/2017 2 2016 secondary to syncope GI bleed aspiration pneumonia. Patient presented to the emergency department today with complaints of right-sided hip pain causing a shift to be unable to bear weight or ambulate. -Right hip and pelvis x-ray reviewed and reveals no acute fracture dislocation. Mild degenerative changes involving the hip joints bilaterally. Degenerative changes in scoliosis of the lower lumbar spine. -CT lumbar spine reviewed and revealed metastatic distractive lesions are noted throughout the lumbar spine, sacrum and the visualized portions of the iliac bones consistent with metastatic disease or multiple myeloma until proven otherwise. Most significant lesion is noted at the L2 level and results are also noticed almost complete discharge of the L2 vertebral body. Degenerative changes and scoliosis of the lumbar spine are noted. Multilevel spinal stenosis are noted within the lumbar spine. Grade 1 anterolisthesis of L5 in relation to S1. Significant bilateral foraminal narrowing is noted at all levels within the lumbar spine. MRI of lumbar spine may be helpful for further evaluation of these findings if clinically indicated. -CT pelvis reviewed and reveals scattered lytic distractive lesions throughout the bony pelvis and lumbar spine with metastatic disease or multiple myeloma. No acute fracture or dislocation. IV fluid pain control Morphine SR 15 BID with Frazer for breakthrough pain CT chest/abdomen/pelvis skull series Urine protein electrophoresis serum protein electrophoresis Consult oncology palliative medicine PT requested (2) Hypertension ICD Codes: I10 - Essential (primary) hypertension Status: Chronic Plan: Continue home amlodipine Monitor BP (3) GERD (gastroesophageal reflux disease) ICD Codes: K21.9 - Gastro-esophageal reflux disease without esophagitis Status: Chronic Plan: Continue Protonix (4) Acute kidney injury superimposed on chronic kidney disease ICD Codes: N17.9 - Acute kidney failure, unspecified; N18.9 - Chronic kidney disease, unspecified Status: Acute Plan: IV fluids consult nephrology (5) Hypercalcemia ICD Codes: E83.52 - Hypercalcemia Status: Acute Plan: IV fluids would like to use Zometa given patient's ARTIE will defer to nephrology Assessment and Plan Patient examined. Assessment and plan formulated with Jonna Devlin PA-C. I agree with the above. Problem Qualifiers (1) Hypertension: Qualified Codes: I10 - Essential (primary) hypertension Jonna Devlin Sep 23, 2017 13:03 Cheng Nelson DO Sep 27, 2017 01:14
[2017-09-23 13:14] LABS: AUTOMATED NEUTROPHIL # 3.5 TH/MM3 (1.8-7.7); BASOPHIL # 0.1 TH/MM3 (0-0.2); BASOPHIL % 0.9 % (0.0-2.0); EOSINOPHIL # 0.4 TH/MM3 (0-0.4); EOSINOPHIL % 5.6 % (0.0-4.0); HEMATOCRIT 27.5 % (35.0-46.0); HEMOGLOBIN 9.3 GM/DL (11.6-15.3); LYMPH % 19.7 % (9.0-44.0); LYMPHOCYTE # 1.3 TH/MM3 (1.0-4.8); MEAN CELL VOLUME 85.2 FL (80.0-100.0); MEAN PLATELET VOLUME 8.4 FL (7.0-11.0); MONO % 21.1 % (0.0-8.0); MONOCYTE # 1.4 TH/MM3 (0-0.9); NEUT % 52.7 % (16.0-70.0); PLATELET COUNT 165 TH/MM3 (150-450); RED BLOOD COUNT 3.22 MIL/MM3 (4.00-5.30); RED CELL DISTRIBUTION WIDTH 14.3 % (11.6-17.2); WHITE BLOOD COUNT 6.6 TH/MM3 (4.0-11.0)
[2017-09-23] MEDS ORDERED: HYDROmorphone HCL PF 2 MG/ML VIAL IV PUSH PRN (13:15)
[2017-09-23] MEDS ORDERED: ACETAMINOPHEN/HYDROcodone 325 MG/5 MG TAB PO PRN (13:15)
[2017-09-23] MEDS: PANTOPRAZOLE SOD 40 MG DELAYED RELEASE TAB PO SCH ×2 (13:15→22:53)
[2017-09-23] MEDS ORDERED: amLODIPine BESYLATE 5 MG TAB PO SCH (13:15)
[2017-09-23] MEDS ORDERED: 1/2 NS + KCL 20 MEQ INJ 1,000 ML IV SCH (13:15)
[2017-09-23] MEDS ORDERED: METOPROLOL TARTRATE 25 MG TAB PO SCH (13:15)
[2017-09-23] MEDS ORDERED: PILL SPLITTER OTHER PRN (13:30)
[2017-09-23 13:42] LABS: ALBUMIN 2.8 GM/DL (3.4-5.0); BICARBONATE 31.8 MEQ/L (21.0-32.0); CREATININE 4.53 MG/DL (0.50-1.00); TOTAL BILIRUBIN ADULT 0.3 MG/DL (0.2-1.0)
[2017-09-23] MEDS ORDERED: DIATRIZOATE MEGLUM/DIATRIZOATE SOD 9 ML CUP PO ONE (13:45)
[2017-09-23 13:48] LABS: CALCIUM 13.2 MG/DL (8.5-10.1)
--- NOTE | 2017-09-23 13:56 | RADRPT ---
EXAM DATE/TIME: 09/23/2017 13:14 [facility] COMPARISON: CHEST SINGLE AP, June 19, 2017, 3:25. INDICATIONS : Cough. MEDICAL HISTORY : None. SURGICAL HISTORY : None. ENCOUNTER: Initial ACUITY: 1 day PAIN SCORE: 0/10 LOCATION: Bilateral chest FINDINGS: The cardiac silhouette is enlarged in transverse diameter. There is left lower lobe atelectasis versu s pneumonia. A small left sided effusion is present. The right lung is free of acute parenchymal opac ity. CONCLUSION: 1. Left lower lobe atelectasis versus pneumonia. Small left effusion Sha Hunt MD on September 23, 2017 at 13:53 Board Certified Radiologist. This report was verified electronically.
[2017-09-23] MEDS ORDERED: BUME1TAB PO (14:11)
[2017-09-23] MEDS ORDERED: GABA100C4 PO (14:11)
[2017-09-23] MEDS ORDERED: OXYC1TAB63 (14:14)
[2017-09-23] MEDS ORDERED: ACYC5OIN4 TOPICAL (14:14)
[2017-09-23] MEDS ORDERED: CARA1SUS3 PO (14:14)
[2017-09-23 14:15] VITALS: BP 138/60; PULSE 64; RESP 18; TEMP 97; O2SAT 98
[2017-09-23] MEDS ORDERED: ZOLEDRONIC ACID INJ 4 MG in SODIUM CHLOR 0.9% 250 ML INJ 150 ML IV ONE (14:45)
[2017-09-23] MEDS: ACYCLOVIR 5% OINT 15 APPLIC/15 GM TUBE TOPICAL SCH ×3 (14:58→23:00)
[2017-09-23] MEDS: SODIUM CHLOR 0.45% 1000 ML INJ 1,000 ML IV SCH (15:15)
--- NOTE | 2017-09-23 16:05 | PD.CONS ---
HPI Service Nephrology Consult Requested By Dr. Nelson Reason for Consult Acute and chronic kidney disease with hypercalcemia Primary Care Physician Estrella Mauricio M.D. History of Present Illness Patient is a 87-year-old female with history of CK D stage IV she follows with Dr. EDEN, she has a left renal artery stents about 7 years ago for renal artery stenosis, she has prolonged hospitalization last year and maintained her kidney functions at stage IV level, she came in with right hip pain and CT of the lumbar spine showed lytic lesions with metastatic disease worrisome for multiple myeloma or other malignancy, her calcium also is 13.2, she is feeling tired and weak. She didn't have loss of weight present. Review of Systems Constitutional: COMPLAINS OF: Fatigue, Weight loss Respiratory: COMPLAINS OF: Shortness of breath Gastrointestinal: COMPLAINS OF: Constipation, Nausea Musculoskeletal: COMPLAINS OF: Joint pain, Muscle aches, Stiffness, Back pain Neurologic: COMPLAINS OF: Abnormal gait Past Family Social History Allergies: Coded Allergies: penicillin G (Unverified Allergy, Mild, Rash, 06/12/17) Past Medical History arthritis, hypertension, dyslipidemia, chronic kidney disease stage IV status post renal artery stent, pulmonary edema. Past Surgical History Surgical history includes colon appendectomy ALBA/BSO bilateral knee replacements tonsils and adenoids removed cardiac stents Renal artery stent Reported Medications Reported Meds & Active Scripts Active Walker with Front Wheels (Device) 1 Mis Mis Ea .ROUTE DIRECTED Sucralfate Liq (Sucralfate) 1 Gram/10 Ml Jimena 1 Gm PO ACHS 30 Days Protonix (Pantoprazole Sodium) 40 Mg Tab 40 Mg PO BID Simvastatin 40 Mg Tab 40 Mg PO HS Reported Acyclovir Topical (Acyclovir) 5% Oint 1 Applic TOPICAL Q3HR Oxycodone-Acetaminophen 5-325 (Oxycodone HCl/Acetaminophen) 5 Mg-325 Mg Tablet Q6HR PRN Bumetanide 1 Mg Tab 1 Mg PO DAILY Gabapentin 100 Mg Cap 100 Mg PO BID Active Ordered Medications Current Medications Medications (Trade) Dose Ordered Sig/Rafael Route Start Time Stop Time Status Last Admin (NS Flush) 2 ml UNSCH PRN IV FLUSH 09/23/17 13:00 (NS Flush) 2 ml BID IV FLUSH 09/23/17 21:00 (Tylenol) 650 mg Q4H PRN PO 09/23/17 13:00 (Zofran Inj) 4 mg Q6H PRN IVP 09/23/17 13:00 (Narcan Inj) 0.4 mg UNSCH PRN IV PUSH 09/23/17 13:00 (Milk Of Magnesia Liq) 30 ml Q12H PRN PO 09/23/17 13:00 ([place] 5-325 Mg) 1 tab Q6H PRN PO 09/23/17 13:15 (Dilaudid Pf Inj) 0.5 mg Q6H PRN IV PUSH 09/23/17 13:15 (Protonix) 40 mg BID PO 09/23/17 13:15 (Carafate Liq) 1 gm ACHS PO 09/23/17 17:00 (Pill Splitter) 1 ea UNSCH PRN OTHER 09/23/17 13:30 (Oramorph Sr) 15 mg Q12HR PO 09/23/17 21:00 (Zovirax 5% Oint (15 Gm)) 1 applic Q3HR TOPICAL 09/23/17 17:00 (Neurontin) 100 mg BID PO 09/23/17 21:00 Sodium Chloride 1,000 ml @ 84 mls/hr [id number] IV 09/23/17 15:15 Family History Noncontributory Social History Denies smoking no alcohol use Physical Exam Vital Signs Vital Signs Date Time Temp Pulse Resp B/P (MAP) Pulse Ox O2 Delivery O2 Flow Rate FiO2 09/23/17 14:15 97.0 64 18 138/60 (86) 98 09/23/17 13:44 09/23/17 12:30 98.2 69 18 147/78 (101) 99 Room Air 09/23/17 10:35 18 09/23/17 09:31 98.2 65 18 165/77 (106) 99 Room Air 09/23/17 09:31 18 99 Room Air 09/23/17 09:23 98.2 67 18 165/77 (106) 98 Physical Exam GENERAL: mal-nourished, well-developed patient. SKIN: Warm and dry. HEAD: Normocephalic. EYES: No scleral icterus. No injection or drainage. NECK: Supple, trachea midline. No JVD or lymphadenopathy. CARDIOVASCULAR: Regular rate and rhythm without murmurs, gallops, or rubs. RESPIRATORY: Breath sounds diminished at bases GASTROINTESTINAL: Abdomen soft, non-tender, nondistended. EXTREMITIES: No cyanosis, or edema. NEUROLOGICAL: Awake, alert, and oriented x 3. Non-focal. Laboratory Laboratory Tests Test 09/23/17 12:16 09/23/17 12:50 White Blood Count 6.6 Red Blood Count 3.22 Hemoglobin 9.3 Hematocrit 27.5 Mean Corpuscular Volume 85.2 Mean Corpuscular Hemoglobin 29.0 Mean Corpuscular Hemoglobin Concent 34.0 Red Cell Distribution Width 14.3 Platelet Count 165 Mean Platelet Volume 8.4 Neutrophils (%) (Auto) 52.7 Lymphocytes (%) (Auto) 19.7 Monocytes (%) (Auto) 21.1 Eosinophils (%) (Auto) 5.6 Basophils (%) (Auto) 0.9 Neutrophils # (Auto) 3.5 Lymphocytes # (Auto) 1.3 Monocytes # (Auto) 1.4 Eosinophils # (Auto) 0.4 Basophils # (Auto) 0.1 CBC Comment DIFF FINAL Differential Comment Blood Urea Nitrogen 74 Creatinine 4.53 Random Glucose 78 Total Protein 6.0 Albumin 2.8 Calcium Level 13.2 Alkaline Phosphatase 87 Aspartate Amino Transf (AST/SGOT) 31 Alanine Aminotransferase (ALT/SGPT) 20 Total Bilirubin 0.3 Sodium Level 142 Potassium Level 4.4 Chloride Level 105 Carbon Dioxide Level 31.8 Anion Gap 5 Estimat Glomerular Filtration Rate 9 Protein Corrected Calcium Result Diagram: 09/23/17 1216 09/23/17 1250 Imaging Last Impressions Chest X-Ray 09/23/17 1253 Signed Impressions: Service Date/Time: Saturday, September 23, 2017 13:14 - CONCLUSION: 1. Left lower lobe atelectasis versus pneumonia. Small left effusion Sha Hunt MD Pelvis CT 09/23/17 0000 Signed Impressions: Service Date/Time: Saturday, September 23, 2017 10:43 - CONCLUSION: 1. Scattered lytic destructive lesions throughout the bony pelvis and lumbar spine with metastatic disease or multiple myeloma. Clinical correlation is recommended. 2. Degenerative changes and scoliosis of lumbar spine. 3. No acute fracture or dislocation. Juancarlos Bellamy MD Lumbar Spine CT 09/23/17 0000 Signed Impressions: Service Date/Time: Saturday, September 23, 2017 10:43 - CONCLUSION: 1. Lytic destructive lesions are noted throughout the lumbar spine, sacrum and visualized portions of the iliac bones consistent with metastatic disease or multiple myeloma until proven otherwise. Most significant lesion is noted at the L2 level and results in almost complete destruction of the L2 vertebral body. 2. Degenerative changes and scoliosis of the lumbar spine are noted. 3. Multilevel spinal stenoses are noted within the lumbar spine. 4. Grade I anterolisthesis of L5 in relation to S1. 5. Significant bilateral foraminal narrowing is noted at all levels within the lumbar spine. 6. MRI of lumbar spine may be helpful for further evaluation of these findings if clinical indicated. Juancarlos Bellamy MD Hip and Pelvis X-Ray 09/23/17 0000 Signed Impressions: Service Date/Time: Saturday, September 23, 2017 09:48 - CONCLUSION: 1. No acute fracture or dislocation. 2. Mild degenerative changes involving the hip joints bilaterally. 3. Degenerative changes and scoliosis of the lower lumbar spine. Juancarlos Bellamy MD Assessment and Plan Problem List: (1) Acute kidney injury superimposed on chronic kidney disease ICD Codes: N17.9 - Acute kidney failure, unspecified; N18.9 - Chronic kidney disease, unspecified Plan: Patient has evidence for lytic lesions differential includes multiple myeloma workup is pending oncology has been consulted I will give her pamidronate 60 mg for hypercalcemia Continue monitor renal functions Discussed with the family (2) Hypercalcemia ICD Codes: E83.52 - Hypercalcemia Plan: Pamidronate ordered PTH, PTH related peptide, phosphorus and vitamin D1 25 ordered (3) Hypertension ICD Codes: I10 - Essential (primary) hypertension Status: Chronic Plan: Continue to monitor (4) Bone cancer ICD Codes: C41.9 - Malignant neoplasm of bone and articular cartilage, unspecified Status: Acute Plan: Await further studies continue to monitor Problem Qualifiers (1) Hypertension: Qualified Codes: I10 - Essential (primary) hypertension (2) Bone cancer: Qualified Codes: C41.4 - Malignant neoplasm of pelvic bones, sacrum and coccyx Franki Casanova MD Sep 23, 2017 16:05
[2017-09-23] MEDS ORDERED: PAMIDRONATE INJ 60 MG in SODIUM CHLORID 0.9% 500 ML INJ 500 ML IV ONE (17:00)
[2017-09-23] MEDS: SUCRALFATE 1 GM/10 ML CUP PO SCH ×2 (17:00→22:54)
--- NOTE | 2017-09-23 17:26 | RADRPT ---
EXAM DATE/TIME: 09/23/2017 16:33 [facility] COMPARISON: No previous studies available for comparison. INDICATIONS : Lytic lesions, staging. ORAL CONTRAST: Prescribed oral contrast ingested. RADIATION DOSE: 13.24 CTDIvol (mGy) ; Combined studies - Thorax/Abdomen/Pelvis MEDICAL HISTORY : Hypertension. Hypercholesterolemia. Polyps, shingles SURGICAL HISTORY : Tonsillectomy. Cholecystectomy.Appendectomy. ENCOUNTER: Initial ACUITY: 1 day PAIN SCALE: 6/10 LOCATION: abd pelvis TECHNIQUE: Volumetric scanning of the abdomen and pelvis was performed. Using automated exposure control and adjustment of the mA and/or kV according to patient size, radiation dose was kept as low as reasonably achievable to obtain optimal diagnostic quality images. DICOM format image data is av ailable electronically for review and comparison. FINDINGS: Small bilateral pleural effusions are identified. The liver is normal in size and free of focal defec ts. The spleen is enlarged. The gallbladder and pancreas are unremarkable. No intrahepatic or extrahe patic ductal dilatation is seen. The adrenal glands are unremarkable. Kidneys are small and atrophic bilaterally. No free fluid is identified. Examination of the pelvis demonstrates no evidence of free fluid or pelvic mass. No abnormally enlarg ed inguinal or retroperitoneal lymph nodes are present. The bladder is unremarkable. Moderate scoliotic deformity is present to the left with a rotatory component with the apex at L2. Th ere is bony destruction throughout the lumbar spine with near-complete destruction of the L2 vertebra l body. There is a paraspinal soft tissue component and the degree of epidural tumor cannot be determ ined. MRI is recommended for further evaluation if clinically indicated. Lytic lesions are also ident ified involving the left ilium and left inferior pubic ramus. CONCLUSION: 1. Splenomegaly 2. Bony destruction throughout the lumbar spine with near-complete destruction at L2. MRI is recommen ded to characterize the soft tissue component and to evaluate for epidural tumor Sha Hunt MD on September 23, 2017 at 17:18 Board Certified Radiologist. This report was verified electronically.
--- NOTE | 2017-09-23 17:29 | RADRPT ---
EXAM DATE/TIME: 09/23/2017 16:33 [facility] COMPARISON: No previous studies available for comparison. INDICATIONS : Lytic lesions, staging. RADIATION DOSE: 13.24 CTDIvol (mGy) ; Combined studies - Thorax/Abdomen/Pelvis MEDICAL HISTORY : Cardiovascular disease. Hypercholesterolemia. Hypertension. Ployp, shingles SURGICAL HISTORY : Cholecystectomy. Tonsillectomy.Appendectomy. ENCOUNTER: Initial ACUITY: 1 day PAIN SCALE: 6/10 LOCATION: chest TECHNIQUE: Volumetric scanning of the chest was performed. Using automated exposure control and adjustment of t he mA and/or kV according to patient size, radiation dose was kept as low as reasonably achievable to obtain optimal diagnostic quality images. DICOM format image data is available electronically for r eview and comparison. Follow-up recommendations for detected pulmonary nodules are based at a minimum on nodule size and pa tient risk factors according to Fleischner Society Guidelines. FINDINGS: There are pulmonary nodules in both lower lobes characteristic of metastatic disease the largest mikie uring approximately 15 mm in diameter in the right base. Small bilateral pleural effusions are identi fied. Examination of the mediastinum demonstrates no abnormally enlarged lymph nodes by CT criteria. No axi llary or hilar abnormalities are identified. Coronary artery calcifications are present. A moderate s ize hiatal hernia is present. There are multiple areas of lytic destruction involving the thoracic spine most prominent in the midt horacic region with disruption of the anterior half of one of the thoracic vertebral bodies. No epidu ral tumor is identified. MRI is recommended for further evaluation if clinically indicated. No signif icant vertebral body height loss is identified. CONCLUSION: 1. Multiple lytic areas of bone destruction of thoracic spine characteristic of metastatic disease wi thout evidence of epidural tumor. 2. Bilateral pulmonary nodules characteristic of metastatic disease Sha Hunt MD on September 23, 2017 at 17:23 Board Certified Radiologist. This report was verified electronically.
--- NOTE | 2017-09-23 17:45 | RADRPT ---
EXAM DATE/TIME: 09/23/2017 16:23 [facility] COMPARISON: CT BRAIN W/O CONTRAST, June 12, 2017, 19:45. INDICATIONS : Evaluate for lytic lesions. MEDICAL HISTORY : Cardiovascular disease. SURGICAL HISTORY : Hysterectomy. Colon resection. ENCOUNTER: Initial ACUITY: 1 day PAIN SCORE: 0/10 LOCATION: Bilateral cranial FINDINGS: There is lucency on the AP view measuring 8 mm in diameter just to the left of the midline not seen o n the left lateral view. Metastatic disease is not excluded. The other lucencies in the skull are rafael ous in nature. CONCLUSION: 1. 8mm lucency on the AP view may reflect metastatic disease Sha Hunt MD on September 23, 2017 at 17:40 Board Certified Radiologist. This report was verified electronically.
[2017-09-23 19:10] VITALS: BP 125/64; PULSE 63; RESP 17; TEMP 97.3; O2SAT 96
[2017-09-23] MEDS: MORPHINE SULFATE 15 MG CONTROLLED RELEASE TAB PO SCH (20:39)
[2017-09-23] MEDS: GABAPENTIN 100 MG CAP PO SCH (22:53)
[2017-09-23] MEDS: SODIUM CHLORIDE 0.9% FLUSH 10 ML FLUSH IV FLUSH SCH (23:03)
[2017-09-23 23:30] VITALS: BP 96/55; PULSE 85; RESP 18; TEMP 97.6; O2SAT 95
[2017-09-24] VITALS (8 sets, daily range): BP systolic 99–145; BP diastolic 51–68; PULSE 74–100; RESP 16–18; TEMP 96.6–100.2; O2SAT 93–97
[2017-09-24] MEDS: ACYCLOVIR 5% OINT 15 APPLIC/15 GM TUBE TOPICAL SCH ×9 (02:00→21:50)
[2017-09-24] MEDS: SODIUM CHLOR 0.45% 1000 ML INJ 1,000 ML IV SCH (03:10)
[2017-09-24 05:33] LABS: BASOPHIL # 0.1 TH/MM3 (0-0.2); BASOPHIL % 0.9 % (0.0-2.0); EOSINOPHIL # 0.4 TH/MM3 (0-0.4); EOSINOPHIL % 5.3 % (0.0-4.0); HEMATOCRIT 27.3 % (35.0-46.0); HEMOGLOBIN 8.9 GM/DL (11.6-15.3); LYMPH % 16.3 % (9.0-44.0); LYMPHOCYTE # 1.1 TH/MM3 (1.0-4.8); MEAN CELL VOLUME 85.6 FL (80.0-100.0); MEAN CORPUSCULAR HEMOGLOBIN 27.8 PG (27.0-34.0); MEAN CORPUSCULAR HGB CONC 32.5 % (32.0-36.0); MEAN PLATELET VOLUME 7.6 FL (7.0-11.0); MONO % 18.2 % (0.0-8.0); MONOCYTE # 1.2 TH/MM3 (0-0.9); NEUT % 59.3 % (16.0-70.0); PLATELET COUNT 148 TH/MM3 (150-450); RED BLOOD COUNT 3.19 MIL/MM3 (4.00-5.30); RED CELL DISTRIBUTION WIDTH 14.2 % (11.6-17.2); WHITE BLOOD COUNT 6.7 TH/MM3 (4.0-11.0)
[2017-09-24 05:51] LABS: BICARBONATE 27.5 MEQ/L (21.0-32.0); CREATININE 4.39 MG/DL (0.50-1.00)
[2017-09-24 05:55] LABS: PHOSPHORUS 6.5 MG/DL (2.5-4.9)
[2017-09-24 06:34] LABS: TOTAL PROTEIN 5.9 GM/DL (6.4-8.2)
[2017-09-24 06:36] LABS: CALCIUM 12.8 MG/DL (8.5-10.1)
[2017-09-24] MEDS: GABAPENTIN 100 MG CAP PO SCH ×2 (09:20→21:00)
[2017-09-24] MEDS: MORPHINE SULFATE 15 MG CONTROLLED RELEASE TAB PO SCH ×2 (09:20→21:00)
[2017-09-24] MEDS: PANTOPRAZOLE SOD 40 MG DELAYED RELEASE TAB PO SCH ×2 (09:20→21:00)
[2017-09-24] MEDS: SODIUM CHLORIDE 0.9% FLUSH 10 ML FLUSH IV FLUSH SCH ×2 (09:21→21:00)
[2017-09-24] MEDS: SUCRALFATE 1 GM/10 ML CUP PO SCH ×4 (09:21→21:00)
[2017-09-24 09:40] LABS: ALB/GLOB RATIO (SPE) 1.46 (1.39-2.23)
[2017-09-24] MEDS ORDERED: INFLUENZA VIRUS VACCINE (QUADRIVALENT) 0.5 ML SYR IM ONE (10:00)
[2017-09-24] MEDS ORDERED: PNEUMOCOCCAL POLYVALENT INJ 25 MCG/0.5 ML SYR IM ONE (10:00)
--- NOTE | 2017-09-24 10:36 | HHI.PR ---
Subjective Remarks pt says she has had back and hip pains family present Objective Vitals heart reg lung cta abd s/nt ext no edema Vital Signs Date Time Temp Pulse Resp B/P (MAP) Pulse Ox O2 Delivery O2 Flow Rate FiO2 09/24/17 08:00 96.6 75 17 145/ 96 09/24/17 04:35 96.7 77 18 99/51 (67) 96 09/23/17 23:30 97.6 85 18 96/55 (69) 95 09/23/17 19:10 97.3 63 17 125/64 (84) 96 09/23/17 14:15 97.0 64 18 138/60 (86) 98 09/23/17 13:44 09/23/17 12:30 98.2 69 18 147/78 (101) 99 Room Air 09/23/17 10:35 18 Result Diagram: 09/24/17 0514 09/24/17 0514 Imaging Last Impressions Pelvis CT 09/23/17 0000 Signed Impressions: Service Date/Time: Saturday, September 23, 2017 10:43 - CONCLUSION: 1. Scattered lytic destructive lesions throughout the bony pelvis and lumbar spine with metastatic disease or multiple myeloma. Clinical correlation is recommended. 2. Degenerative changes and scoliosis of lumbar spine. 3. No acute fracture or dislocation. Juancarlos Bellamy MD Lumbar Spine CT 09/23/17 0000 Signed Impressions: Service Date/Time: Saturday, September 23, 2017 10:43 - CONCLUSION: 1. Lytic destructive lesions are noted throughout the lumbar spine, sacrum and visualized portions of the iliac bones consistent with metastatic disease or multiple myeloma until proven otherwise. Most significant lesion is noted at the L2 level and results in almost complete destruction of the L2 vertebral body. 2. Degenerative changes and scoliosis of the lumbar spine are noted. 3. Multilevel spinal stenoses are noted within the lumbar spine. 4. Grade I anterolisthesis of L5 in relation to S1. 5. Significant bilateral foraminal narrowing is noted at all levels within the lumbar spine. 6. MRI of lumbar spine may be helpful for further evaluation of these findings if clinical indicated. Juancarlos Bellamy MD Hip and Pelvis X-Ray 09/23/17 0000 Signed Impressions: Service Date/Time: Saturday, September 23, 2017 09:48 - CONCLUSION: 1. No acute fracture or dislocation. 2. Mild degenerative changes involving the hip joints bilaterally. 3. Degenerative changes and scoliosis of the lower lumbar spine. Juancarlos Bellamy MD A/P Problem List: (1) Metastatic cancer to bone ICD Codes: C79.51 - Secondary malignant neoplasm of bone Status: Acute Plan: This is 87-year-old female with a past mental history which includes arthritis, hypertension, dyslipidemia, chronic kidney disease stage IV status post renal artery stent, pulmonary edema. Patient has had a recent lengthy hospital stay requiring ICU treatment, admission was from the 06/16/2017 2 2016 secondary to syncope ,GI bleed ,aspiration pneumonia. Patient presented to the emergency department with complaints of right-sided hip pain causing a shift to be unable to bear weight or ambulate. -Right hip and pelvis x-ray reviewed and reveals no acute fracture dislocation. Mild degenerative changes involving the hip joints bilaterally. Degenerative changes in scoliosis of the lower lumbar spine. -CT lumbar spine reviewed and revealed metastatic distractive lesions are noted throughout the lumbar spine, sacrum and the visualized portions of the iliac bones consistent with metastatic disease or multiple myeloma until proven otherwise. Most significant lesion is noted at the L2 level and results are also noticed almost complete discharge of the L2 vertebral body. Degenerative changes and scoliosis of the lumbar spine are noted. Multilevel spinal stenosis are noted within the lumbar spine. Grade 1 anterolisthesis of L5 in relation to S1. Significant bilateral foraminal narrowing is noted at all levels within the lumbar spine. MRI of lumbar spine may be helpful for further evaluation of these findings if clinically indicated. -CT pelvis reviewed and reveals scattered lytic distractive lesions throughout the bony pelvis and lumbar spine with metastatic disease or multiple myeloma. No acute fracture or dislocation. Pt noted to have a/ckd 4, anemia, hypercalcemia, and bony lesions as above involving the skull/pelvis and thoracic/lumbar spine. There is concern for multiple myeloma vs another metastatic primary.?lung. pt did have small lung nodules on CT so far the spep not consistent with MM s/p Pamidronate 09/23 cont ivf with dextrose for hypoglycemia nephrology/hem/onc consulted. Long talk with pt and family at bedside They would like to discuss with oncology and they also request hospice consultation as they would not want any biopsies nor any chemotherapy. They would like home with hospice once all is arranged. (2) Hip pain ICD Codes: M25.559 - Pain in unspecified hip Status: Acute Plan: above (3) Hypertension ICD Codes: I10 - Essential (primary) hypertension Status: Chronic Plan: Continue home amlodipine Monitor BP (4) GERD (gastroesophageal reflux disease) ICD Codes: K21.9 - Gastro-esophageal reflux disease without esophagitis Status: Chronic Plan: Continue Protonix (5) Acute kidney injury superimposed on chronic kidney disease ICD Codes: N17.9 - Acute kidney failure, unspecified; N18.9 - Chronic kidney disease, unspecified Status: Acute Plan: above (6) Hypercalcemia ICD Codes: E83.52 - Hypercalcemia Status: Acute Plan: above Problem Qualifiers (1) Hypertension: Qualified Codes: I10 - Essential (primary) hypertension Daniel Borrero MD Sep 24, 2017 10:36
[2017-09-24] MEDS: DEXT 5%-NACL 0.45% 1000 ML INJ 1,000 ML IV SCH ×3 (10:40→22:40)
--- NOTE | 2017-09-24 11:05 | PD.CONS ---
Consult Service Palliative Care . Consult Requested By Primary Care Physician Estrella Mauricio M.D. Reason for Consultation a. To assist with evaluation and management of symptoms including: b. To assist medical decision maker(s) with: better understanding of current medical conditions; weighing benefits/burdens of medical treatment options; making medical treatment decisions. HPI History of Present Illness Ms. Oseguera is an 87-year-old female with a history of hypertension, CKD stage IV, left renal artery stenosis status post stent, hyperlipidemia, pulmonary edema, and osteoarthritis/osteoporosis, gout and secondary hyperparathyroidism. She presented to [facility] ED via on 09/23/2017 with complaints of right hip pain 1 day, limiting her ability to sit up or stand secondary to severe pain. No history of trauma. Patient reports pain is exacerbated with any movement. The patient's daughter reports her mother had been very active up until one month ago when she was diagnosed with shingles; her PCP is treating her postherpetic neuralgia with gabapentin 100mg PO 2 times daily. An x-ray of the hip showed no acute fracture or location. There were mild degenerative changes involving the hip joints bilaterally and degenerative changes with scoliosis of the lower lumbar spine. Patient's received [place] (5- 325mg/tab) 2 tabs while in the ED which "took the edge off" but she continued to have severe pain with any movement. Therefore, further imaging was ordered. = CT of the thorax and chest showed bilateral pulmonary nodules characteristic of metastatic disease. = CT of the pelvis and lumbar spine showed scattered lytic structure lesions throughout the bony pelvis and lumbar spine with metastatic disease or multiple myeloma. No significant lesion is noted at the L2 level and results in almost complete destruction of the L2 vertebral body. = Xray of the skull revealed an 8 mm lucency on the AP view which may reflect metastatic disease. Given patient's advanced age and poor performance status she may not be a candidate for aggressive intervention. Dr. Rice discussed aggressive intervention versus comfort focused care. After speaking with the patient's brother who is a radiologist in [place], the patient/family opted for hospital admission and initiation of workup for cancer. Patient was started on long-acting morphine 15mg PO 2 times daily and PRN Scottsd[place] for symptom management of pain. Oncology was consulted. Dr. Casanova, oncology, evaluated the patient. Patient reports increased weakness and fatigue, denies weight loss. Her calcium was elevated at 13.2; administered pamidronate 60mg hypercalcemia. Further lab work pending. Function/Cognitive Trajectory DRAFT Prior to being hospitalized in 06/2017 patient lived with her son and was frequently checked in on by her daughter. 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 The patient was riding her bicycle at least 3 times a week. However , a history of frequent falls was reported. Past Family Social History Coded Allergies: penicillin G (Unverified Allergy, Mild, Rash, 06/12/17) Past Medical History HTN CKD-stage IV Left renal artery stenosis S/P stent in 2009 Hyperlipidemia Benign colon mass Pulmonary edema Osteoarthritis Osteoporosis Gout Secondary hyperparathyroidism Anemia . Past Surgical History Hysterectomy Tonsillectomy Bilateral salpingo-oophorectomy Appendectomy Right carpal tunnel release Bilateral total knee arthroplasty Right hemicolectomy Renal artery stent Cardiac stents . Reported Medications Sucralfate Liq (Sucralfate) 1 Gram/10 Ml Jimena 1 Gm PO ACHS 30 Days Protonix (Pantoprazole Sodium) 40 Mg Tab 40 Mg PO BID Simvastatin 40 Mg Tab 40 Mg PO HS Metoprolol Tartrate 25 Mg Tab 25 Mg PO BID Amlodipine (Amlodipine Besylate) 2.5 Mg Tab 2.5 Mg PO DAILY . Current Medications Medications (Trade) Dose Ordered Sig/Rafael Route Start Time Stop Time Status Last Admin (NS Flush) 2 ml UNSCH PRN IV FLUSH 09/23/17 13:00 (NS Flush) 2 ml BID IV FLUSH 09/23/17 21:00 09/24/17 09:21 (Tylenol) 650 mg Q4H PRN PO 09/23/17 13:00 (Zofran Inj) 4 mg Q6H PRN IVP 09/23/17 13:00 (Narcan Inj) 0.4 mg UNSCH PRN IV PUSH 09/23/17 13:00 (Milk Of Magnesia Liq) 30 ml Q12H PRN PO 09/23/17 13:00 (Scottsdale 5-325 Mg) 1 tab Q6H PRN PO 09/23/17 13:15 (Dilaudid Pf Inj) 0.5 mg Q6H PRN IV PUSH 09/23/17 13:15 (Protonix) 40 mg BID PO 09/23/17 13:15 09/24/17 09:20 (Carafate Liq) 1 gm ACHS PO 09/23/17 17:00 09/24/17 09:21 (Pill Splitter) 1 ea UNSCH PRN OTHER 09/23/17 13:30 (Oramorph Sr) 15 mg Q12HR PO 09/23/17 21:00 09/24/17 09:20 (Zovirax 5% Oint (15 Gm)) 1 applic Q3HR TOPICAL 09/23/17 17:00 (Neurontin) 100 mg BID PO 09/23/17 21:00 09/24/17 09:20 Sodium Chloride 1,000 ml @ 84 mls/hr [id number] IV 09/23/17 15:15 Dextrose/Sodium Chloride 1,000 ml @ 84 mls/hr [id number] IV 09/24/17 10:00 UNV Family History Mother at 83 of heart disease. She also had rheumatoid arthritis and kidney disease. Father at 48 of a cerebral hemorrhage. A brother had a pacemaker and sister had aortic valve replacement. . Substance Use Tobacco: None reported. Alcohol: None reported. Prescription med abuse: None reported. Illicits: None reported. . Psychosocial History DRAFT.... 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 Recently in November of this year. Patient has three sons and one daughter. . Spiritual/Cultural Factors Rastafarian annel . Physical Exam Vital Signs Date Time Temp Pulse Resp B/P (MAP) Pulse Ox O2 Delivery O2 Flow Rate FiO2 09/24/17 08:00 96.6 75 17 145/ 96 09/24/17 04:35 96.7 77 18 99/51 (67) 96 09/23/17 23:30 97.6 85 18 96/55 (69) 95 09/23/17 19:10 97.3 63 17 125/64 (84) 96 09/23/17 14:15 97.0 64 18 138/60 (86) 98 09/23/17 13:44 09/23/17 12:30 98.2 69 18 147/78 (101) 99 Room Air 09/23/17 10:35 18 Exam CONSTITUTIONAL/GENERAL: This is an adequately nourished patient, in no apparent distress. TUBES/LINES/DRAINS: SKIN: No jaundice, rashes, or lesions. Ecchymoses on upper extremities. No wounds seen anteriorly. Skin temperature appropriate. Not diaphoretic. HEAD: Atraumatic. Normocephalic. EYES: Pupils equal and round and reactive. Extraocular motions intact. No scleral icterus. No injection or drainage. Fundi not examined. ENT: Hearing grossly normal. Nose without bleeding or purulent drainage. Throat without visible erythema, exudates, masses, or lesions. NECK: Trachea midline. Supple, nontender. No palpable thyroid enlargement or nodularity. CARDIOVASCULAR: Regular rate and rhythm without murmurs, gallops, or rubs. No JVD. Peripheral pulses symmetric. RESPIRATORY/CHEST: Symmetric, unlabored respirations. Clear to auscultation. Breath sounds equal bilaterally. No wheezes, rales, or rhonchi. GASTROINTESTINAL: Abdomen soft, non-tender, nondistended. No hepato-splenomegaly , or palpable masses. No guarding. Bowel sounds present. GENITOURINARY: Without palpable bladder distension. Adrian catheter in place. MUSCULOSKELETAL: Extremities without clubbing, cyanosis, or edema. No joint tenderness or effusion noted. No calf tenderness. No mottling or clubbing. LYMPHATICS: No palpable cervical or supraclavicular adenopathy. NEUROLOGICAL: Awake and alert. Motor and sensory grossly within normal limits. Follows commands. Cognitively sharp. Moves all extremities. PSYCHIATRIC: No obvious anxiety/depression. no apparent hallucinations or other psychotic thought process. Diagnostic Tests Laboratory Laboratory Tests Test 09/23/17 12:16 09/23/17 12:50 09/24/17 05:14 White Blood Count 6.6 TH/MM3 (4.0-11.0) 6.7 TH/MM3 (4.0-11.0) Red Blood Count 3.22 MIL/MM3 (4.00-5.30) 3.19 MIL/MM3 (4.00-5.30) Hemoglobin 9.3 GM/DL (11.6-15.3) 8.9 GM/DL (11.6-15.3) Hematocrit 27.5 % (35.0-46.0) 27.3 % (35.0-46.0) Mean Corpuscular Volume 85.2 FL (80.0-100.0) 85.6 FL (80.0-100.0) Mean Corpuscular Hemoglobin 29.0 PG (27.0-34.0) 27.8 PG (27.0-34.0) Mean Corpuscular Hemoglobin Concent 34.0 % (32.0-36.0) 32.5 % (32.0-36.0) Red Cell Distribution Width 14.3 % (11.6-17.2) 14.2 % (11.6-17.2) Platelet Count 165 TH/MM3 (150-450) 148 TH/MM3 (150-450) Mean Platelet Volume 8.4 FL (7.0-11.0) 7.6 FL (7.0-11.0) Neutrophils (%) (Auto) 52.7 % (16.0-70.0) 59.3 % (16.0-70.0) Lymphocytes (%) (Auto) 19.7 % (9.0-44.0) 16.3 % (9.0-44.0) Monocytes (%) (Auto) 21.1 % (0.0-8.0) 18.2 % (0.0-8.0) Eosinophils (%) (Auto) 5.6 % (0.0-4.0) 5.3 % (0.0-4.0) Basophils (%) (Auto) 0.9 % (0.0-2.0) 0.9 % (0.0-2.0) Neutrophils # (Auto) 3.5 TH/MM3 (1.8-7.7) 4.0 TH/MM3 (1.8-7.7) Lymphocytes # (Auto) 1.3 TH/MM3 (1.0-4.8) 1.1 TH/MM3 (1.0-4.8) Monocytes # (Auto) 1.4 TH/MM3 (0-0.9) 1.2 TH/MM3 (0-0.9) Eosinophils # (Auto) 0.4 TH/MM3 (0-0.4) 0.4 TH/MM3 (0-0.4) Basophils # (Auto) 0.1 TH/MM3 (0-0.2) 0.1 TH/MM3 (0-0.2) CBC Comment DIFF FINAL DIFF FINAL Differential Comment Blood Urea Nitrogen 74 MG/DL (7-18) 73 MG/DL (7-18) Creatinine 4.53 MG/DL (0.50-1.00) 4.39 MG/DL (0.50-1.00) Random Glucose 78 MG/DL (74-106) 45 MG/DL (74-106) Total Protein 6.0 GM/DL (6.4-8.2) 5.9 GM/DL (6.4-8.2) Albumin 2.8 GM/DL (3.4-5.0) 3.45 GM/DL (3.50-5.00) Calcium Level 13.2 MG/DL (8.5-10.1) 13.0 MG/DL (8.5-10.1) Alkaline Phosphatase 87 U/L (45-117) Aspartate Amino Transf (AST/SGOT) 31 U/L (15-37) Alanine Aminotransferase (ALT/SGPT) 20 U/L (10-53) Total Bilirubin 0.3 MG/DL (0.2-1.0) Sodium Level 142 MEQ/L (136-145) 142 MEQ/L (136-145) Potassium Level 4.4 MEQ/L (3.5-5.1) 4.1 MEQ/L (3.5-5.1) Chloride Level 105 MEQ/L (98-107) 104 MEQ/L (98-107) Carbon Dioxide Level 31.8 MEQ/L (21.0-32.0) 27.5 MEQ/L (21.0-32.0) Anion Gap 5 MEQ/L (5-15) 11 MEQ/L (5-15) Estimat Glomerular Filtration Rate 9 ML/MIN (>89) 10 ML/MIN (>89) Protein Corrected Calcium MG/DL (8.5-10.1) MG/DL (8.5-10.1) Phosphorus Level 6.5 MG/DL (2.5-4.9) Albumin/Globulin Ratio 1.46 (1.39-2.23) Cqnhr-9-Tawjfficc 0.26 GM/DL (0.11-0.29) Aalaw-4-Vmsiqabtw 0.79 GM/DL (0.22-1.00) Beta Globulins 0.64 GM/DL (0.53-1.03) Gamma Globulins 0.67 GM/DL (0.50-1.39) Parathyroid Hormone (Intact) 19.1 PG/ML (12.4-76.8) Result Diagram: 09/24/17 0514 09/24/17 0514 Patient/Family Conference Issues Discussed: * Palliative care role, purpose, approach * Additional medical, psychosocial, and spiritual history * Patients general health, functional status, and cognitive changes in the months leading up to the current hospitalization * Patient/family understanding of the current medical problems * Patient/family understanding of prognosis * Patients goals of care as best understood from advance directives and/or conversations and/or values * Current medical treatment options and benefits/burdens of those options * Likely scenarios comparing ongoing aggressive care with a transition to comfort measures only * Questions answered to the best of my ability * Palliative care contact information provided Assessment and Plan Pertinent Non-Medical Issues Psychosocial: Patient 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 Recently in November of this year. Patient has three sons and one daughter. Spiritual: Rastafarian annel Legal: Kaela Nash Ethical issues impacting care: . Important Contacts Kaela Nash (daughter): [phone] . Prognosis Draft: Prior to being hospitalized in June, the patient was independent with all ADLs and enjoyed writing her bicycle 3 times weekly. She had been relatively healthy given her advanced age. Due to her advanced age she is at risk for further set backs and complications. . Thank you for the opportunity to participate in the care of Ms. Gaines. Jina Romeo Sep 24, 2017 11:05
--- NOTE | 2017-09-24 14:20 | HHI.NPPN ---
Subjective History of Present Illness A 87-year-old with lytic bone lesions in the pelvic and spinal bone Objective Data Data Vital Signs Date Time Temp Pulse Resp B/P (MAP) Pulse Ox O2 Delivery O2 Flow Rate FiO2 09/24/17 12:00 98.0 77 16 107/56 (73) 97 09/24/17 10:20 18 09/24/17 08:00 96.6 75 17 145/ 96 09/24/17 07:59 74 09/24/17 04:35 96.7 77 18 99/51 (67) 96 09/23/17 23:30 97.6 85 18 96/55 (69) 95 09/23/17 19:10 97.3 63 17 125/64 (84) 96 -: 09/24/17 0514 09/24/17 0514 Physical Exam General Appearance: Well Developed Neck Neck Exam: Neck Supple Pulmonary Resp Exam: Clear Bilaterally, Breath Sounds Equal Cardiology CV Exam: Regular, Normal Sinus Rhythm Extremeties Extremities Exam: No Edema Assessment/Plan Problem List: (1) Acute kidney injury superimposed on chronic kidney disease ICD Codes: N17.9 - Acute kidney failure, unspecified; N18.9 - Chronic kidney disease, unspecified Status: Acute Plan: Patient has evidence for lytic lesions differential includes multiple myeloma workup is pending oncology has been consulted received pamidronate 60 mg for hypercalcemia Continue monitor renal functions (2) Hypercalcemia ICD Codes: E83.52 - Hypercalcemia Status: Acute Plan: Pamidronate ordered PTH, PTH related peptide, phosphorus and vitamin D1 25 ordered (3) Hypertension ICD Codes: I10 - Essential (primary) hypertension Status: Chronic Plan: Continue to monitor (4) Bone cancer ICD Codes: C41.9 - Malignant neoplasm of bone and articular cartilage, unspecified Status: Acute Plan: Await further studies continue to monitor Problem Qualifiers (1) Hypertension: Qualified Codes: I10 - Essential (primary) hypertension (2) Bone cancer: Qualified Codes: C41.4 - Malignant neoplasm of pelvic bones, sacrum and coccyx Franki Casanova MD Sep 24, 2017 14:20
[2017-09-24] MEDS ORDERED: HYDROmorphone HCL PF 2 MG/ML VIAL IV PUSH PRN (18:30)
--- NOTE | 2017-09-24 18:54 | EKG ---
Date Performed: 09/23/2017 Time Performed: 13:08:36 PTAGE: 87 years EKG: SINUS BRADYCARDIA Compared to previous tracing, the patient is now bradycardic BORDERLINE E CG PREVIOUS TRACING : 06/12/2017 20.18 DOCTOR: Ashleigh Vinson Interpretating Date/Time 09/24/2017 18:54:08
--- NOTE | 2017-09-24 20:12 | MB ---
cc: DANICA GARG MD, REGINA J. M.D. DATE OF : 1930 DATE OF CONSULTATION: 09/24/2017 REQUESTING PHYSICIAN Hospitalist service. REASON FOR CONSULTATION Patient with radiographic evidence of diffusely metastatic malignancy associated with hypercalcemia. CHIEF COMPLAINT Ms. Gregg reports diffuse pain. She is mostly nonverbal. The entirety of the history is obtained from her son and daughter at bedside and from the electronic health record. HISTORY OF PRESENT ILLNESS Ms. Gregg is an 87-year-old female who up until May 2017, was in her usual fair state of health. She had been up until then living independently and was fully functional. The patient's children report the patient developed shingles in May and this resulted in significant postherpetic neuralgia involving her right chest wall. They report she has not since then been herself. Over the past few months she has become increasingly lethargic, has been ambulating less. Her appetite has decreased. She has been losing weight and overall has been failing to thrive. She reports symptoms of back pain and hip pain to her primary care physician. Imaging studies including x-ray of the hip was done. No definite abnormalities were noted. She subsequently presents to the emergency department where she underwent pelvic and abdominal CT scans for the same symptoms. She was found to have extensive destructive lesions involving multiple levels of her vertebral bodies including lumbar and thoracic. Metastatic disease/destructive lesions were noted in the pelvis as well. The patient has been initiated on opioid analgesics. She was noted to be in acute on chronic renal failure with hypercalcemia of malignancy as well. She was treated with Zometa for management of her hypercalcemia. The oncology service has been asked to see her to describe what a potential diagnostic workup may look like and what possible treatment options may look like for metastatic malignancy. The patient has also been evaluated by palliative care and by Hospice. The patient's family has agreed to Hospice level of care at home. PAST MEDICAL HISTORY As obtained from the electronic medical record. 1. Hypertension. 2. Arthritis. 3. Dyslipidemia. 4. Chronic kidney disease. 5. Peripheral arterial disease. PAST SURGICAL HISTORY 1. Partial colectomy for "benign tumor. 2. ALBA/BSO. 3. Bilateral knee replacement. 4. Tonsillectomy. 5. Cardiac stent placement. ALLERGIES ALLERGY TO PENICILLIN. FAMILY HISTORY Noncontributory. SOCIAL HISTORY The patient had been living with her children for the past 2 months. Prior to that she was living at home independently. CURRENT INPATIENT MEDICATIONS 1. Hydromorphone 1 gram IV q4 hours as needed for pain. 2. Dexamethasone 5% with normal saline, 0.45% at 84 cc per hour. 3. Hydrocodone / acetaminophen 5/325 one tablet p.o. q6 hours. 4. Gabapentin 100 milligrams p.o. b.i.d. 5. Milk of Magnesia 30 mL p.o. q12. 6. Oramorph 15 milligrams p.o. q12 hours. 7. Zofran 4 milligrams IV q6 hours a day for nausea and vomiting. 8. Pantoprazole 40 milligrams p.o. b.i.d. 9. Carafate one gram ac and hs. REVIEW OF SYSTEMS: Unobtainable. The patient is barely able to mumble. She does indicate pain in her back and in her abdomen. PHYSICAL EXAMINATION Vital signs: Temperature 99.3 degrees Fahrenheit, heart rate 82 beats per minute, blood pressure is 134/68, respiratory rate 16, O2 sats are 97% on room air. GENERAL APPEARANCE: Ms. Gregg is an elderly and frail-appearing female, she appears to be cachectic, she is laying in bed, she barely opens her eyes, she mumbles and groans. Her son and daughter are at bedside. They are both attentive to her. HEENT: Head atraumatic, normocephalic, conjunctive pale. Oral exam, dry mucous membranes. NECK: Neck exam, no palpable cervical or supraclavicular lymphadenopathy. Cardiovascular: Regular rate and rhythm, S1-S2. Respiratory exam: Poor inspiratory effort, decreased bibasilar breath sounds. No wheezing or rhonchi. BREASTS: Breast examination: Performed in the presence of female nurse pantograph transferrer: No skin changes. No obvious masses noted. No axillary lymphadenopathy. ABDOMEN: Distended, tender, tympanic to percussion, positive bowel sounds. No palpable hepatosplenomegaly. EXTREMITIES: Lower extremities: No pretibial edema or calf tenderness. METER MECHANIC: Could not perform full exam but she appears to be generally weak. LABORATORY FINDINGS Blood work dated 09/24/2017: WBC count 6.7, hemoglobin 8.9 gm/dl, hematocrit 27.3%, MCV 85.6%, platelet count 148, absolute neutrophil count is 4. Chemistries: Sodium 142, potassium 4.1, chloride 104, bicarb 27.5, BUN 73, creatinine 4.3, random glucose 45, calcium 13, phosphorus 6.3, serum protein electrophoresis reveals no abnormal bands. Albumin was 3.4. IMAGING STUDIES CT scan of the abdomen and pelvis dated 09/23/2016 without IV contrast indicates splenomegaly, destructive bony lesions throughout the lumbar spine with near complete destruction of the L2 vertebral body. CT scan of the chest dated 09/23/2016 indicates multiple lytic areas of bone destruction of the thoracic spine characteristic of metastatic disease without evidence of epidural tumor. Multiple bilateral pulmonary nodules characteristic of metastatic disease identified. ASSESSMENT Ms. Gregg is an 87 year-old lady who presents to the hospital with general failure to thrive, progressive back pain, loss of appetite and weight loss. She went from being independently functional to bed bound, requiring assistance with all activities of daily living and personal care within a matter of three months. She underwent imaging studies of the chest, abdomen and pelvis and was noted to have extensive bony metastatic disease involving the pelvis, sacral, lumbar and thoracic spine. She was also noted to have extensive pulmonary nodules consistent with metastatic disease. The primary concern is for an advanced and aggressive malignancy. Additional findings include hypercalcemia as well as progressive renal failure. A serum protein electrophoresis indicated no evidence of abnormal protein bands. She has no previous history of solid tumor cancers. The patient's family apparently has already accepted Hospice level of care but wish to discuss with an oncologist the typical diagnostic workup for malignancy in a situation like this. I had a long talk with the patient's daughter and son. We talked about image guided biopsy being the basis of establishing a diagnosis. We talked about staging workup and potential therapeutic intervention. I explained to them that prior to describing any therapeutic interventions, she would require biopsy. This would involve likely using an image guided procedure with a hollow needle. The patient's son and daughter rightly feel that their mother would be too frail to undergo diagnostic workup and biopsy. They have accepted end of life care and Hospice and would prefer to not pursue diagnostic workup at this time. I explained to them that no matter what type of malignancy she has, the malignancy will be advanced, and given her frailty and extremely poor performance status, I agree with Hospice level of care. RECOMMENDATIONS Likely advanced malignancy: Proceed with Hospice level of care given her advanced age and frailty. I have increased her hydromorphone IV dosing for optimal comfort. MD ODELL Bravo/OZ /6:37 PM /7:34 PM
[2017-09-25 01:15] VITALS: BP 115/68; PULSE 61; RESP 18; TEMP 98.3; O2SAT 92
[2017-09-25] MEDS: MORPHINE SULFATE 2 MG/ML INJ IV PRN ×2 (02:33→12:17)
[2017-09-25 04:29] VITALS: PULSE 87
[2017-09-25 06:15] VITALS: BP 88/50; PULSE 82; RESP 19; TEMP 98.9; O2SAT 96
[2017-09-25 08:00] VITALS: BP 95/47; PULSE 86; RESP 15; TEMP 99.4; O2SAT 87
[2017-09-25] MEDS: ACYCLOVIR 5% OINT 15 APPLIC/15 GM TUBE TOPICAL SCH ×2 (08:00→11:00)
[2017-09-25] MEDS: SUCRALFATE 1 GM/10 ML CUP PO SCH ×2 (08:00→11:14)
[2017-09-25] MEDS: PANTOPRAZOLE SOD 40 MG DELAYED RELEASE TAB PO SCH (09:00)
[2017-09-25] MEDS: SODIUM CHLORIDE 0.9% FLUSH 10 ML FLUSH IV FLUSH SCH (09:00)
[2017-09-25] MEDS: GABAPENTIN 100 MG CAP PO SCH (09:00)
[2017-09-25] MEDS: MORPHINE SULFATE 15 MG CONTROLLED RELEASE TAB PO SCH (09:00)
--- NOTE | 2017-09-25 11:02 | HHI.DCPOC ---
Discharge Care Plan Diagnosis: (1) Metastatic cancer to bone Goals to Promote Your Health * To prevent worsening of your condition and complications * To maintain your health at the optimal level Directions to Meet Your Goals Take your medications as prescribed Follow your dietary instruction Follow activity as directed Keep your appointments as scheduled Take your immunizations and boosters as scheduled If your symptoms worsen call your PCP, if no PCP go to Urgent Care Center or Emergency Room Smoking is Dangerous to Your Health. Avoid second hand smoke Call the 24-hour hour crisis hotline for domestic abuse at Daniel Borrero MD Sep 25, 2017 11:02
--- NOTE | 2017-09-25 11:10 | HHI.PR ---
Subjective Remarks respiratory secretions. Objective Vitals secretion noise heart reg lung course bs abd s/nt ext no edema Vital Signs Date Time Temp Pulse Resp B/P (MAP) Pulse Ox O2 Delivery O2 Flow Rate FiO2 09/25/17 08:00 99.4 86 15 95/47 (63) 87 09/25/17 06:15 98.9 82 19 88/50 (63) 96 09/25/17 04:29 87 09/25/17 01:15 98.3 61 18 115/68 (84) 92 09/24/17 23:52 100 09/24/17 20:40 100.2 77 18 99/54 (69) 93 09/24/17 19:47 77 09/24/17 16:00 99.3 82 16 134/68 (90) 97 09/24/17 12:00 98.0 77 16 107/56 (73) 97 Result Diagram: 09/24/17 0514 09/24/17 0514 Imaging Last Impressions Pelvis CT 09/23/17 0000 Signed Impressions: Service Date/Time: Saturday, September 23, 2017 10:43 - CONCLUSION: 1. Scattered lytic destructive lesions throughout the bony pelvis and lumbar spine with metastatic disease or multiple myeloma. Clinical correlation is recommended. 2. Degenerative changes and scoliosis of lumbar spine. 3. No acute fracture or dislocation. Juancarlos Bellamy MD Lumbar Spine CT 09/23/17 0000 Signed Impressions: Service Date/Time: Saturday, September 23, 2017 10:43 - CONCLUSION: 1. Lytic destructive lesions are noted throughout the lumbar spine, sacrum and visualized portions of the iliac bones consistent with metastatic disease or multiple myeloma until proven otherwise. Most significant lesion is noted at the L2 level and results in almost complete destruction of the L2 vertebral body. 2. Degenerative changes and scoliosis of the lumbar spine are noted. 3. Multilevel spinal stenoses are noted within the lumbar spine. 4. Grade I anterolisthesis of L5 in relation to S1. 5. Significant bilateral foraminal narrowing is noted at all levels within the lumbar spine. 6. MRI of lumbar spine may be helpful for further evaluation of these findings if clinical indicated. Juancarlos Bellamy MD Hip and Pelvis X-Ray 09/23/17 0000 Signed Impressions: Service Date/Time: Saturday, September 23, 2017 09:48 - CONCLUSION: 1. No acute fracture or dislocation. 2. Mild degenerative changes involving the hip joints bilaterally. 3. Degenerative changes and scoliosis of the lower lumbar spine. Juancarlos Bellamy MD A/P Problem List: (1) Metastatic cancer to bone ICD Codes: C79.51 - Secondary malignant neoplasm of bone Status: Acute Plan: This is 87-year-old female with a past mental history which includes arthritis, hypertension, dyslipidemia, chronic kidney disease stage IV status post renal artery stent, pulmonary edema. Patient has had a recent lengthy hospital stay requiring ICU treatment, admission was from the 06/16/2017 2 2016 secondary to syncope ,GI bleed ,aspiration pneumonia. Patient presented to the emergency department with complaints of right-sided hip pain causing a shift to be unable to bear weight or ambulate. -Right hip and pelvis x-ray reviewed and reveals no acute fracture dislocation. Mild degenerative changes involving the hip joints bilaterally. Degenerative changes in scoliosis of the lower lumbar spine. -CT lumbar spine reviewed and revealed metastatic distractive lesions are noted throughout the lumbar spine, sacrum and the visualized portions of the iliac bones consistent with metastatic disease or multiple myeloma until proven otherwise. Most significant lesion is noted at the L2 level and results are also noticed almost complete discharge of the L2 vertebral body. Degenerative changes and scoliosis of the lumbar spine are noted. Multilevel spinal stenosis are noted within the lumbar spine. Grade 1 anterolisthesis of L5 in relation to S1. Significant bilateral foraminal narrowing is noted at all levels within the lumbar spine. MRI of lumbar spine may be helpful for further evaluation of these findings if clinically indicated. -CT pelvis reviewed and reveals scattered lytic distractive lesions throughout the bony pelvis and lumbar spine with metastatic disease or multiple myeloma. No acute fracture or dislocation. Pt noted to have a/ckd 4, anemia, hypercalcemia, and bony lesions as above involving the skull/pelvis and thoracic/lumbar spine. There is concern for multiple myeloma vs another metastatic primary.?lung. pt did have small lung nodules on CT so far the spep not consistent with MM s/p Pamidronate 09/23 family at bedside. pt declining. They are awaiting transport home with [facility] hospice. d/c order written. (2) Hip pain ICD Codes: M25.559 - Pain in unspecified hip Status: Acute Plan: above (3) Hypertension ICD Codes: I10 - Essential (primary) hypertension Status: Chronic Plan: Continue home amlodipine Monitor BP (4) GERD (gastroesophageal reflux disease) ICD Codes: K21.9 - Gastro-esophageal reflux disease without esophagitis Status: Chronic Plan: Continue Protonix (5) Acute kidney injury superimposed on chronic kidney disease ICD Codes: N17.9 - Acute kidney failure, unspecified; N18.9 - Chronic kidney disease, unspecified Status: Acute Plan: above (6) Hypercalcemia ICD Codes: E83.52 - Hypercalcemia Status: Acute Plan: above Problem Qualifiers (1) Hypertension: Qualified Codes: I10 - Essential (primary) hypertension Daniel Borrero MD Sep 25, 2017 11:10
[2017-09-25] MEDS ORDERED: HYOSCYAMINE 0.125 MG TAB SL PRN (11:30)
[2017-09-26 15:46] LABS: PTH RELATED PEPTIDE 4.2 pmol/L (<2.0)
== END 2017-09-25 13:42 | disposition hospice, home (50) | DRG 543 ==
LOC: NEPD 09:11 → NEDA 12:51 → N06B 13:59
PROVIDERS: ADMIT Hospitalist; ATTEND Hospitalist
DX: C79.51 Secondary malignant neoplasm of bone (principal); N18.4 Chronic kidney disease, stage 4 (severe); R64 Cachexia; C78.02 Secondary malignant neoplasm of left lung; C78.01 Secondary malignant neoplasm of right lung; N17.9 Acute kidney failure, unspecified; E83.52 Hypercalcemia; C80.1 Malignant (primary) neoplasm, unspecified; B02.29 Other postherpetic nervous system involvement; D63.1 Anemia in chronic kidney disease; N25.81 Secondary hyperparathyroidism of renal origin; I73.9 Peripheral vascular disease, unspecified; I70.1 Atherosclerosis of renal artery; Z51.5 Encounter for palliative care; Z66 Do not resuscitate; K21.9 Gastro-esophageal reflux disease without esophagitis; E78.5 Hyperlipidemia, unspecified; M81.0 Age-related osteoporosis without current pathological fracture; I12.9 Hypertensive chronic kidney disease with stage 1 through stage 4 chronic kidney disease, or unspecified chronic kidney disease; M10.9 Gout, unspecified; M19.90 Unspecified osteoarthritis, unspecified site; M41.9 Scoliosis, unspecified; M48.061 Spinal stenosis, lumbar region without neurogenic claudication; M43.17 Spondylolisthesis, lumbosacral region; R29.6 Repeated falls; R62.7 Adult failure to thrive; Z68.30 Body mass index [BMI] 30.0-30.9, adult; Z74.01 Bed confinement status; Z88.0 Allergy status to penicillin; Z91.81 History of falling; Z95.5 Presence of coronary angioplasty implant and graft; Z96.653 Presence of artificial knee joint, bilateral
CPT/HCPCS: 70260; 71045; 71250; 72131; 72192; 73502; 74176; 80048; 80053; 82397; 82652; 82948; 83970; 84100; 84155; 84165; 85025; 93005; J1170; J2270; J2430; J7040; Q9963